=== PATIENT | male | born 1945 | race Caucasian/White ===

== ENCOUNTER 2022-04-26 18:05 | Emergency (ER) | payer MEDICARE, OTHER, SELFPAY ==
[2022-04-26 18:09] VITALS: BP 151/62; PULSE 62; RESP 16; TEMP 36.3; O2SAT 100
--- NOTE | 2022-04-26 18:55 | ED.FALL ---
HPI - Fall General Chief Complaint: Fall Stated Complaint: fall with bleeding injury to left arm Time Seen by Provider: 04/26/22 18:44 History of Present Illness HPI Narrative: 76-year-old male presents to the emergency room for evaluation of multiple skin tears to his left elbow. Patient states yesterday he suffered a mechanical fall from a standing position, scraped up his left elbow. Patient is on Plavix, and states he has not been unable to control the bleeding. Related Data Allergies Allergy/AdvReac Type Severity Reaction Status Date / Time No Known Allergies Allergy Verified 04/26/22 18:59 Review of Systems Review of Systems: CONSTITUTIONAL: Denies fever, chills, or sweats. EYES: Denies visual changes, redness, or discharge. ENT: Denies rhinorrhea, congestion, sore throat, or otalgia. CARDIOVASCULAR: Denies chest pain, palpitations, or edema. RESPIRATORY: Denies cough or dyspnea. GASTROINTESTINAL: Denies abdominal pain, nausea, vomiting, or diarrhea. GENITOURINARY: Denies dysuria or hematuria. SKIN: Reports multiple skin tears to left elbow MUSCULOSKELETAL: Denies back pain, joint pain, or myalgia. NEUROLOGIC: Denies headache, numbness, dizziness, or weakness. PSYCHIATRIC: Denies anxiety or depression. Exam Narrative: GENERAL: Well-appearing, well-nourished, no physical limitations, and in no acute distress. HEAD: Normocephalic, atraumatic. EYES: Conjunctivae normal, PERRLA and EOMI. CHEST: Clear to auscultation. No respiratory distress. No wheezes rales or rhonchi. No tenderness. HEART: Regular rate and rhythm. No murmur heard. Normal peripheral pulses. EXTREMITIES: Normal range of motion. No edema. No clubbing or cyanosis; no tenderness to the left elbow SKIN: Left elbow: 2 skin tears with venous bleed NEURO: No focal deficits. Alert and oriented x3. MAEW. CN's II-XI intact bilaterally, normal gait PSYCH: Cooperative. Normal mood and affect. Course Course Emergency Course: Surgicel applied to skin tear to left elbow. Hemostasis achieved. Vital Signs Vital signs: Vital Signs Temperature 36.3 C L 04/26/22 18:09 Pulse Rate 62 04/26/22 18:09 Respiratory Rate 16 04/26/22 18:09 Blood Pressure 151/62 H 04/26/22 18:09 Pulse Oximetry 100 04/26/22 18:09 Oxygen Delivery Room Air 04/26/22 18:09 Temperature 36.3 C L 04/26/22 18:09 Pulse Rate 62 04/26/22 18:09 Respiratory Rate 16 04/26/22 18:09 Blood Pressure 151/62 H 04/26/22 18:09 Pulse Oximetry 100 04/26/22 18:09 Oxygen Delivery Room Air 04/26/22 18:09 Discharge Plan Discharge Clinical Impression: Abrasion of elbow, left Patient Disposition: Home, Self-Care Condition: Stable Instructions: Antibiotic Form, Skin Avulsion (ED) Additional Instructions: Keep bandage on your wound for the next 2 days. Do not get wet. Once you remove the bandage, if the gauze is sticking to your elbow, just soak it in warm water. Follow-up/Referrals: Dimitrios,DO Sukhjinder [Primary Care Provider] - Time of Disposition: 19:23
[2022-04-26] MEDS: Please add drug allergy info to patient profile. 1 EACH XX (19:22)
[2022-04-26] MEDS: CELLULOSE OXIDIZED 2 x 3 INCH 1 PKT XX (19:22)
== END 2022-04-26 19:31 | disposition home or self-care (01) ==
PROVIDERS: Emergency Provider Nurse Practitioner Family; PCP Family Medicine
DX: S51.012A Laceration without foreign body of left elbow, initial encounter (principal); Z79.02 Long term (current) use of antithrombotics/antiplatelets; W19.XXXA Unspecified fall, initial encounter
CPT/HCPCS: 99283

== ENCOUNTER 2024-12-04 19:08 | Emergency (ER) | payer MEDICARE, OTHER, SELFPAY ==
--- NOTE | ~2024-12-04 | XR_ITS ---
Portable chest x-ray Comparison: None Clinical History: Cough Findings: Lungs are clear, without focal consolidation or pleural effusion. Cardiomediastinal silho uette is unremarkable. Bones and soft tissues are unremarkable. Impression: Clear lungs. Reviewed, dictated and finalized at location M. ECT MANAGEMENT ANALYST Impression: Clear lungs.
--- OUTSIDE RECORDS SUMMARY | 2024-12-04 19:11 | XMS_ITS | Clinical Summary ---
Author Organization [facility] Address [address] [place] [address] Care Team Providers Care Service Station Operator Name Role Phone Rogelio Huerta DO Primary Care Provider Allergies Active Allergy Reactions Criticality Noted Date Comments Doxycycline Dizziness Low 03/11/2023 Medications atorvastatin 40 MG tablet Take 1 tablet (40 mg total) by mouth daily. Active clopidogrel 75 MG tablet Take 1 tablet (75 mg total) by mouth daily. Active losartan 25 MG tablet Take 1 tablet (25 mg total) by mouth daily. Active metoprolol succinate ER 25 MG 24 hr tablet Take 1 tablet (25 mg total) by mouth daily. Active triamcinolone (KENALOG) 0.1 % lotion APPLY TO THE AFFECTED AREA ON SCALP DAILY UNTIL CLEAR 10/02/20 22 Active diclofenac sodium (VOLTAREN) 1 % gelIndications:Ost eoarthritis of both knees, unspecified osteoarthritis type,Trochanteric bursitis of both hips Apply 4 g topically 4 (four) times daily. 150 g 11/12/19 23 Active vitamin B-12 (CYANOCOBALAMIN) (CYANOCOBALAMIN) 1000 mcg tablet Take 1 tablet (1,000 mcg total) by mouth daily. Active ketoconazole (NIZORAL) 2 % shampooIndications :Dermatitis Apply topically 2 (two) times a week. 120 mL 01/02/20 23 Active amoxicillin-clavul anate (AUGMENTIN) 875-125 MG tablet amoxicillin 875 mg-potassium clavulanate 125 mg tablet TAKE 1 TABLET BY MOUTH EVERY 12 HOURS FOR 5 DAYS Active doxycycline hyclate (VIBRA-TABS) 100 MG tablet Take 1 tablet (100 mg total) by mouth 2 (two) times daily. 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 The only thing proven to slow the progression of osteoarthritis as weight loss. Every 1 lb lost, relieves 4-6 lb of stress across the knee. Continue weight loss through diet and exercise. Consider low carbohydrate diet. Greater trochanteric bursitis, left 06/05/2020 Overview (07/22/2021): Last Assessment & Plan: Physician directed exercises given. Voltaren gel. Steroid injection today. Follow-up in 4 weeks. Primary osteoarthritis of left hip 06/05/2020 Overview (07/22/2021): Last Assessment & Plan: We discussed the risks, benefits and alternatives. If the steroid injection to the greater trochanteric bursa does not give him the relief that he is looking for we could consider steroid injection into the hip joint itself. If that gives him the relief he is looking for a may need to consider total hip arthroplasty in the future. X-rays show moderate osteoarthritic changes. Coronary artery disease invo lving [place] coronary artery of [place] heart without angina pectoris 01/28/2019 Overview (07/22/2021): Last Assessment & Plan: Therefore need to avoid oral nonsteroidal anti-inflammatories Pure hypercholesterolemia 01/28/2019 Pain in shoulder 06/05/2016 Proteinuria 05/30/2016 Essential hypertension 10/29/2015 Gastroesophageal reflux disease 04/27/2015 Osteoarthritis of shoulder region 03/21/2014 Osteoarthritis of knee 03/20/2014 Resolved Problems Problem Noted Date Diagnosed Date Resolved Date Coronavirus infection 08/31/20202022 Overweight 06/29/2020 10/25/2021 Localized adiposity 08/25/2012 10/25/19 22 Immunizations Name Administration Dates Next Due Fluzone 6 Months+ Quad (0.5 mL Prefilled Syringe) 07/22/2021 Fluzone High Dose - >Age 65 (Prefilled Syringe) 07/28/2022 Influenza (Generic) 09/20/2014, 3,09/27/2012,2010 Influenza Adult (Generic) 08/08/2020,,08/13/2018,2016,09/12/2016,08/03/2015 MODERNA COVID-19 (12+) MRNA, LNP-S, PF, 100 MCG/ 0.5 ML DOSE 01/07/2021,11/29/2020 MODERNA COVID-19 (ENCHILADA [employer] YANNA ANTONIO), MRNA, LNP-S, PF, 50 MCG/ 0.25 ML DOSE 03/11/2022 Pneumococcal (Pneumovax 23) 10/19/2010 Pneumococcal (Prevnar 13) 06/04/2015 Shingrix 02/17/2019,12/09/2018 Td (TDVAX) 11/28/2003 Td (Tenivac) preservative free 11/28/2003 Tdap (Generic) 04/27/2015 Zoster (Zostavax) 19430 Unt/0.65Ml 11/01/2011 Family History Medical History Relation Comments Arthritis Brother 1 Heart Disease Brother 1 Hypertension Brother 1 Hypertension Brother 2 Heart Disease Brother 3 Hypertension Brother 3 Hypertension Sister 1 Alzheimers Sister 2 Relation Status Comments Brother 1 Brother 2 Brother 3 Sister 1 Sister 2 Social History Tobacco Use Types Packs/Day Years Used Date Smoking Tobacco: Former Cigarettes 1.5 32 1 965 - 10/19/1989 Smokeless Tobacco: Never Tobacco Cessation:Counseling Given: No Comments:The provider can provide you with more information about quitting. 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 Sexual Orientation Choose not to disclose 2021 4:58 AM CDT Last Filed Vital Signs Vital Sign Reading Time Taken Comments Blood Pressure 126/64 03/17/2023 9:39 AM CDT Pulse 62 03/17/2023 9:39 AM CDT Temperature 36.3 C (97.3 F) 03/17/2023 9:39 AM CDT Respiratory Rate 14 11/12/2022 1:36 PM ORTHOTIST/PROSTHETIST Oxygen Saturation 99% 03/17/2023 9:39 AM CDT Inhaled Oxygen Concentration - - Weight 76.2 kg (168 lb) 03/17/2023 9:39 AM CDT Height 172.7 cm (5' 8 ) 03/17/2023 9:39 AM CDT Body Mass Index 25.54 03/17/2023 9:39 AM CDT Plan of Treatment Health Maintenance Due Date Last Done Comments ASCVD LDL 1945 ASCVD Statin 1945 Hepatitis C 1963 Annual Medicare Wellness Visit 2010 RSV Immunization or 60+ Years (1 - 1-dose 75+ series) 2020 PHQ-2 (Physician [place]) 03/17/2024 03/17/2023 COVID-19 Vaccine ( season) 2024 10/23/2022, 03/11/2022, 08/28/2021, Additional history exists Influenza Adult (#1) 2024 07/28/2022, 07/22/2021, 08/08/2020, Additional history exists PHQ-2 (Physician [place]) 10/19/2024 03/17/2023 DTaP, Tdap and Td Vaccines (2 - Td or Tdap) 04/27/2025 04/27/2015, 11/28/2003, 11/28/2003 Pneumococcal Vaccine: 65+ Years Completed 06/04/2015, 10/19/2010 Zoster Vaccines Completed 02/17/2019, 11/20, 11/01/2011 Colorectal Cancer Screening Colonoscopy (10 Years) Discontinued 04/11/2020, 08/25/2016, 08/25/2016 Meningococcal B Vaccine Aged Out No l onger eligible based on patient's age to complete this topic Meningococcal Vaccine Aged Out No jacqueline sara eligible based on patient's age to complete this topic RSV Immunizations Under 20 Months Aged Out No longer eligible based on patient's age to complete this topic Procedures Procedure Name Priority Date/Time Associated Diagnosis Comments COLONOSCOPY GENERIC (SCAN ORDER) 04/11/2020 from Last 3 Months or Most Recently Relevant to Health Maintenance Results * COLONOSCOPY GENERIC (04/11/2020) 04/11/2020 Narrative 04/11/2020 Ordered by an unspecified provider. us Documents Scanned SCANNING Final Result from Last 3 Months or Most Recently Relevant to Health Maintenance Insurance MEDICARE [facility] [employer] Care Teams Service Station Operator Relationship Specialty Start Date End Date Rogelio Huerta DO [address] [place] [address] PCP - General FAMILY PRACTICE 10/21/22
--- OUTSIDE RECORDS SUMMARY | 2024-12-04 19:11 | XMS_ITS | Encounter Summary ---
Author Organization [facility] Facility Care Team Providers Care Independent Contractor Name Role Phone Magaly Desai NP Primary Care Provider + [phone] Nunu Yo MD Primary Care Provider [phone] Magaly Desai [employer] Primary Care Provider + [phone] Sukhjinder Plunkett DO Primary Care Provider + [phone] Rogelio Huerta DO Unavailable [phone] Hector Marsh MD Primary Care Provider [phone] Tao Carver MD Primary Care Provider + Jarod Miller MD Unavailable [phone] Pernell Jalloh MD Primary Care Provider [phone] Encounter Details Date Type Department Care Team (Latest Contact Info) Description 08/05/2016 Orders Only [facility] Provider, MD Travis [address] [place] [id number] Social History Tobacco Use Types Packs/Day Years Used Date Smoking Tobacco: Former Sex and Gender Information Value Date Recorded Sex Assigned at Not on file 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 us Historical Provider Final Res ult documented in this encounter Visit Diagnoses Not on filedocumented in this encounter Care Teams Independent Contractor Relationship Specialty Start Date End Date Magaly Desai, LATRICE PCP - General Nurse Practitioner 01/08/19 01/12/19 Nunu Yo MD [address] [address] PCP - General 01/13/19 07/01/20 Magaly Desai NP [address] [address] PCP - General 07/02/20 05/11/22 Sukhjinder Plunkett DO [address] [address] PCP - General Family Medicine 05/12/22 01/26/23 eHctor Marsh MD [address] [place] [address] PCP - General Orthopedic Surgery 01/27/23 08/13/23 Tao Carver MD [address] [address] PCP - General Internal Medicine 08/14/23 11/22/24 Pernell Jalloh MD [address] [place] [address] PCP - General Internal Medicine 11/23/24 Rogelio Huerta DO [address] [place] [address] Family Medicine 01/09/23 Jarod Miller MD [address] [address] Referring Physician Cardiovascular Disease 01/05/2411/22/24 documented as of this encounter
--- OUTSIDE RECORDS SUMMARY | 2024-12-04 19:11 | XMS_ITS | Referral Summary ---
Author Organization [facility] Address [address] [place] [address] Care Team Providers Care Children'S Ministries Director Name Role Phone Rogelio Huerta DO Unavailable Pernell Jalloh MD Primary Care Provider [phone] Encounters Date Type Department Care Team Description 11/28/2024 4:28 PM ELECTRICIANS TOP HELPER - 11/28/2024 11:59 PM ELECTRICIANS TOP HELPER Hospital Encounter [address] [address] Abnormal results of kidney function studies Discharge Disposition: Discharge to home or self care 11/24/2024 3:15 PM ELECTRICIANS TOP HELPER Office Visit [facility] [address] [place] [address] 6th [address] [place] [address] Shayla Craven NP Alzheimer's disease (HCC) (Primary Dx) from Last 3 Months Allergies Active Allergy Reactions Criticality Noted Date Comments Cyclobenzaprine Other (See comments) Low 06/23/2023 unknown Doxycycline Dizziness,Mental status changes Low Medications cyanocobalamin (Vitamin B-12) 1,000 mcg tablet Take 1 tablet (1,000 mcg total) by mouth daily Active ketoconazole (NIZORAL) 2 % shampoo Apply 1 Application topically once a week 3 Active atorvastatin (LIPITOR) 40 mg tablet TAKE 1 TABLET(40 MG) BY MOUTH DAILY 90 tablet 3 3 Active losartan (COZAAR) 25 mg tablet TAKE 1 TABLET BY MOUTH TWICE DAILY 180 tablet 3 3 Active donepeziL (ARICEPT) 10 mg tabletIndicatio ns:Mild to Moderate Alzheimer's Type Dementia Take 1 tablet (10 mg total) by mouth nightly Take this medication with food or within 30 minutes after a meal 30 tablet 6 5 05/23/20 25 Active Active Problems Problem Noted Date Diagnosed Date Alzheimer's disease 03/10/2024 Overview (11/24/2024): onset 2020 - Mini Mental State Exam 21 - Clinical dementia ratin.5, sum of box scores 4 - genotype e3/e3 - cerebral spinal fluid c/w AD - donepezil/Aricept 10 mg daily Assessment & Plan (11/24/2024 4:37 PM ELECTRICIANS TOP HELPER): onset 2020 - Mini Mental State Exam 21 - Clinical dementia ratin.5, sum of box scores 4 - genotype e3/e3 - cerebral spinal fluid c/w AD PLAN: Continue donepezil/Aricept 10 mg PCP or urgent care to r/o Urinary Tract Infection (acute confusion, frequency, decreased urine stream) Orthopedic aftercare 02/02/2024 Status post total left knee replacement using ce ment 02/02/2024 Arthritis of left knee 01/18/2024 Primary osteoarthritis of left knee 11/30/2023 Primary osteoarthritis of both shoulders 023 Left knee pain 09/04/2023 Primary localized osteoarthritis of knees, bilat eral 09/04/2023 Greater trochanteric bursitis, left 06/05/2020 Assessment & Plan (06/05/2020 8:49 PM CDT): Physician directed exercises given. Voltaren gel. Steroid injection today. Follow-up in 4 weeks. Primary osteoarthritis of left hip 06/05/2020 Assessment & Plan (06/05/2020 8:50 PM CDT): We discussed the risks, benefits and alternatives. If the steroid injection to the greater trochanteric bursa does not give him the relief that he is looking for we could consider steroid injection into the hip joint itself. If that gives him the relief he is looking for a may need to consider total hip arthroplasty in the future. X-rays show moderate osteoarthritic changes. BMI 27.0-27.9,adult 06/05/2020 Assessment & Plan (06/05/2020 8:50 PM CDT): We discussed the adverse effects of extra weight on osteoarthritis. The only thing proven to slow the progression of osteoarthritis as weight loss. Every 1 lb lost, relieves 4-6 lb of stress across the knee. Continue weight loss through diet and exercise. Consider low carbohydrate diet. Coronary artery disease invo lving havas[place]ai coronary artery of havas[place] heart without angina pectoris 01/28/2019 Assessment & Plan (06/05/2020 8:48 PM CDT): Therefore need to avoid oral nonsteroidal anti-inflammatories Pure hypercholesterolemia 01/28/2019 Essential hypertension 01/28/2019 Pain in shoulder 06/05/2016 Social History Tobacco Use Types Packs/Day Years Used Date Smoking Tobacco: Former Cigarettes Q uit: 1982 Smokeless Tobacco: Never Tobacco Cessation:Counseling Given: Not Answered Alcohol Use Standard Drinks/Week Comments Yes 0 (1 standard drink = 0.6 oz pur e alcohol) [facility] Answer Date Recorded In the past 12 months has [employer], gas, oil, or water [employer] threatened to shut off services in your home? No 01/19/2024 Social Connection and Isolat ion Panel [NHANES] Answer Date Recorded In a typical week, how many times do you talk on the phone with family, friends, or neighbors? More than three times a week 01/19/2024 How often do you get togethe r with friends or relatives? More than three times a week 01/19/2024 How often do you attend chur ch or pentecostalism services? Never 01/19/2024 Do you belong to any clubs o r organizations such as latter-day groups, unions, fraternal or athletic groups, or school groups? No 01/19/2024 How often do you attend meet ings of the clubs or organizations you belong to? Never 01/19/2024 Are you , , di vorced, , never , or living with a partner? 01/19/2024 AUDIT-C Answer Date Recorded Q1: How often do you have a drink containing alc ohol? Never 01/18/2024 Q2: How many drinks containi ng alcohol do you have on a typical day when you are drinking? 1 or 2 01/18/2024 Q3: How often do you have six or more drinks on one occasion? Never 01/18/2024 Overall Financial Resource Strain (CARDIA) Answe r Date Recorded How hard is it for you to pa y for the very basics like food, housing, medical care, and heating? Not hard at all 01/19/2024 Hunger Vital Sign Answer Date Recorded Within the past 12 months, y ou worried that your food would run out before you got the money to buy more. Never true 01/19/20 24 Within the past 12 months, t he food you bought just didn't last and you didn't have money to get more. Never true 01/19/2024 PRAPARE - Transportation Answer Date Re corded In the past 12 months, has l ack of transportation kept you from medical appointments or from getting medications? No 11/2023 In the past 12 months, has l ack of transportation kept you from meetings, work, or from getting things needed for daily living? No 01/19/2024 Housing Stability Vital Sign Answer Nacho e Recorded In the last 12 months, was t here a time when you were not able to pay the mortgage or rent on time? No 01/19/2024 In the last 12 months, how many places have you lived? 1 01/19/2024 In the last 12 months, was t here a time when you did not have a steady place to sleep or slept in a intermediate (including now)? No 01/19/2024 Personal Safety Answer Date Recorded Have you ever been in or are you currently in a harmful physical or emotional relationship or is someone making you feel afraid or unsafe? Denies 01/18/2024 Sex and Gender Information Value Date Recorded Sex Assigned at Not on file Legal Sex Male 8:15 AM ELECTRICIANS TOP HELPER Gender Identity Male 05/31/2024 10:17 AM CDT Sexual Orientation Not on file Occupation Industry Job Start Date Job End Date [employer] Not on file Not on file Not o n file Last Filed Vital Signs Vital Sign Reading Time Taken Comments Blood Pressure 163/63 11/24/2024 3:15 PM ELECTRICIANS TOP HELPER Pulse 66 11/24/2024 3:15 PM ELECTRICIANS TOP HELPER Temperature 36.6 C (97.9 F) 11/24/2024 3:15 PM ELECTRICIANS TOP HELPER Respiratory Rate 18 01/19/2024 11:00 AM CDT Oxygen Saturation 98% 11/24/2024 3:15 PM ELECTRICIANS TOP HELPER Inhaled Oxygen Concentration - - Weight 72.3 kg (159 lb 8 oz) 11/24/2024 3:15 PM ELECTRICIANS TOP HELPER Height 172.7 cm (5' 8 ) 11/24/2024 3:15 PM ELECTRICIANS TOP HELPER Body Mass Index 24.25 11/24/2024 3:15 PM ELECTRICIANS TOP HELPER Plan of Treatment Not on file Medical Devices Implanted Type Area Line Crewman Device Identifier Shelf Expiration Date Model / Serial / Lot Cardiac Stent Stent Heart [employer] Simplex P Radiopaque Full Dose Cement Bone Sterile 6191-1-010 - [id number] Implanted:Qty: 2 on 01/18/2024 by Sathish Hager MD at [facility] Left: Knee [employer] 02/15/2026 6191-1-010 / / [id number] [employer] Persona Cruciate Retain Cemented Knee Left 8 Standard Component [id number] - [id number] Implanted:Qty: 1 on 01/18/2024 by Sathish Hager MD at [facility] Left: Knee [employer] [id number] 04/26/2033 [id number] / / [id number] [employer] Baseplate Tibial Knee Cemented Left Fixed Stemmed Persona Size E [employer] [id number] - [id number] Implanted:Qty: 1 on 01/18/2024 by Sathish Hager MD at [facility] Left: Knee [employer] [id number] 10/30/2033 [id number] / / [id number] [employer] Persona 11mm Knee Left 8-11 E-F Insert Articular Vivacit-E [id number] - [id number] Implanted:Qty: 1 on 01/18/2024 by Sathish Hager MD at [facility] Left: Knee [employer] [id number] 09/16/2028 [id number] / / [id number] Procedures Procedure Name Priority Date/Time Associated Diagnosis Comments US KIDNEY COMPLETE Schedule Routine, Read Routine (OP Routine) 11/28/2024 5:05 PM ELECTRICIANS TOP HELPER Abnormal results of kidney function studies from Last 3 Months Results * US Kidney Complete (11/28/2024 5:05 PM ELECTRICIANS TOP HELPER) Anatomical Region Laterality Modality Kidney N/A Ultrasound 11/30/2024 2:48 PM ELECTRICIANS TOP HELPER Narrative 11/30/2024 2:51 PM ELECTRICIANS TOP HELPER EXAM DESCRIPTION: US KIDNEY COMPLETE REASON FOR STUDY: Acute renal insufficiency, abnormal renal function tests for 2 weeks. Hypertension. TECHNIQUE: Ultrasound of the kidneys and urinary bladder was performed with grayscale imaging. COMPARISON: None FINDINGS: RIGHT KIDNEY: The right kidney measures 11 cm in length. There is moderate right hydronephrosis and proximal right hydroureter. There is normal cortical thickness and echogenicity. LEFT KIDNEY: The left kidney measures 12 cm in length. There is moderate left hydronephrosis and proximal left hydroureter. There is normal cortical thickness and echogenicity. URINARY BLADDER: Trabeculated urinary bladder. Only the left ureteral jet was visualized. OTHER: No other additional findings. IMPRESSION: Moderate bilateral hydronephrosis and proximal hydroureter. Trabeculated urinary bladder. Only the left ureteral jet was visualized. THIS IS AN ELECTRONICALLY VERIFIED FINAL REPORT 11/30/2024 2:51 PM - Electronically signed by Arvin Fernando M.D. KT T: Report ID: [id number] Reading Location: [id number] Procedure Note Arvin Fernando MD - 11/30/2024 EXAM DESCRIPTION: US KIDNEY COMPLETE REASON FOR STUDY: Acute renal insufficiency, abnormal renal function testsfor 2 weeks. Hypertension. TECHNIQUE: Ultrasound of the kidneys and urinary bladder was performedwith grayscale imaging. COMPARISON: None FINDINGS: RIGHT KIDNEY: The right kidney measures 11 cm in length. Thereis moderate right hydronephrosis and proximal right hydroureter. There isnormal cortical thickness and echogenicity. LEFT KIDNEY: The left kidney measures 12 cm in length. There is moderate left hydronephrosis and proximal left hydroureter. There is normalcortical thickness and echogenicity. URINARY BLADDER: Trabeculated urinary bladder. Only the left ureteraljet was visualized. OTHER: No other additional findings. IMPRESSION: Moderate bilateral hydronephrosis and proximal hydroureter. Trabeculated urinary bladder. Only the left ureteral jet wasvisualized. THIS IS AN ELECTRONICALLY VERIFIED FINAL REPORT 11/30/2024 2:51 PM - Electronically signed by Arvin Fernando M.D. KT T: Report ID: [id number] Reading Location: [place] [address] [facility] PROCEDURES Final Resu lt from Last 3 Months Insurance MEDICARE [facility] Address: [address] [address] [place] [address] [facility] Sam Carcamo, ZOILA [address] [facility] [place] [address] Advance Directives For more information, please contact: [phone] Documents on File Type Date Recorded Patient Package Pick Up Expl anation ADVANCE DIRECTIVE 01/20/2024 12:44 PM Power of Neurosurgery Physician-Medical * Full Code (Latest Code Status on File) Date Activated Date Inactivated Comments 01/18/2024 7:22 PM 01/19/2024 7:50 PM Care Teams Children'S Ministries Director Relationship Specialty Start Date End Date Pernell Jalloh MD [address] [place] [address] PCP - General Internal Medicine 11/23/24 Rogelio Huerta DO [address] [place] [address] Family Medicine 01/09/23
--- OUTSIDE RECORDS SUMMARY | 2024-12-04 19:11 | XMS_ITS | Encounter Summary ---
Author Organization [facility] Care Team Providers Care Welt Trimming Machine Operator Name Role Phone Magaly Desai NP Primary Care Provider + [phone] Nunu Yo MD Primary Care Provider [phone] Magaly Desai ASSOCIATE PROFESSOR OF FORESTRY Primary Care Provider + [phone] Sukhjinder Plunkett DO Primary Care Provider + [phone] Rogelio Huerta DO Unavailable [phone] Hector Marsh MD Primary Care Provider [phone] Tao Carver MD Primary Care Provider + Jarod Miller MD Unavailable [phone] Pernell Jalloh MD Primary Care Provider [phone] Encounter Details Date Type Department Care Team (Latest Contact Info) Description 12/09/2018 Orders Only [facility] Provider, MD Travis [address] [place] [address] Social History Tobacco Use Types Packs/Day Years Used Date Smoking Tobacco: Former Sex and Gender Information Value Date Recorded Sex Assigned at Not on file Legal Sex Male 8:15 AM ASSEMBLING MACHINE OPERATOR Gender Identity Male 05/31/2024 10:17 AM CDT Sexual Orientation Not on file documented as of this encounter Plan of Treatment Not on file documented as of this encounter Procedures Procedure Name Priority Date/Time Associated Diagnosis Comments CARDIOLOGY REPORT 12/16/2018 12: 00 AM ASSEMBLING MACHINE OPERATOR documented in this encounter Results * CARDIOLOGY REPORT (12/16/2018 12:00 AM ASSEMBLING MACHINE OPERATOR) Anatomical Region Laterality Modality Other Narrative 12/16/2018 12:00 AM ASSEMBLING MACHINE OPERATOR Ordered by an unspecified provider. us Historical Provider [facility] JERAD VELAZQUEZ Final Result documented in this encounter Visit Diagnoses Not on filedocumented in this encounter Care Teams Welt Trimming Machine Operator Relationship Specialty Start Date End Date Magaly Desai NP PCP - General Nurse Practitioner 01/08/19 01/12/19 Nunu Yo MD [address] [address] PCP - General 01/13/19 07/01/20 Magaly Desai NP [address] [address] PCP - General 07/02/20 05/11/22 Sukhjinder Plunkett DO [address] [address] PCP - General Family Medicine 05/12/22 01/26/23 Hector Marsh MD [address] [place] [address] PCP - General Orthopedic Surgery 01/27/23 08/13/23 Tao Carver MD [address] [address] PCP - General Internal Medicine 08/14/23 11/22/24 Pernell Jalloh MD [address] [place] [address] PCP - General Internal Medicine 11/23/24 Rogelio Huerta DO [address] [place] [address] Family Medicine 01/09/23 Jarod Miller MD [address] [address] Referring Physician Cardiovascular Disease 01/05/2411/22/24 documented as of this encounter
--- OUTSIDE RECORDS SUMMARY | 2024-12-04 19:11 | XMS_ITS | Clinical Summary ---
Author Organization [facility] Address [address] [place] [address] Care Team Providers Care Loader Semiconductor Dies Name Role Phone BradleyRogelio DO Unavailable [phone] Pernell Jalloh MD Primary Care Provider + [phone] Allergies Active Allergy Reactions Criticality Noted Date [...] daily Assessment & Plan (11/24/2024 4:37 PM SUBSTATION OPERATOR CHIEF): onset 2020 - Mini Mental State Exam [...] carbohydrate diet. Coronary artery disease invo lving [place] coronary artery of [place] heart without angina pectoris 01/28/2019 Assessment & Plan (06/05/2020 8:48 PM CDT): Therefore need to avoid oral nonsteroidal anti-inflammatories Pure hypercholesterolemia 01/28/2019 Essential hypertension 01/28/2019 Pain in shoulder 06/05/2016 Encounters Date Type Department Care Team Description 11/28/2024 4:28 PM SUBSTATION OPERATOR CHIEF - 11/28/2024 11:59 PM SUBSTATION OPERATOR CHIEF Hospital Encounter [address] [address] Abnormal results of kidney function studies Discharge Disposition: Discharge to home or self care 11/24/2024 3:15 PM SUBSTATION OPERATOR CHIEF Office Visit [address] 6th [address] [place] [address] Herber, Shayla Anand NP Alzheimer's disease (HCC) (Primary Dx) from Last 3 Months Surgical History Surgery Date Site/Laterality Comments CARDIAC CATHETERIZATION 01/13/2019 Mild coronary artery disease involving proximal left circumflex artery 20% stenosis. 2. Right coronary artery 30% stenosis. 3. The stent in left circumflex artery patent. 4. The stent in left anterior descending artery is patent. CORONARY ANGIOPLASTY 2011 2013 Medical History Medical History Date Comments Hyperlipidemia Hypertension Coronary artery disease OA (osteoarthritis) Forgetfulness being worked up for dementia per Incontinence of urine wears depe nds at night Perceptive hearing loss, both sides wears hearing aides. Family History Medical History Relation Name Comments Memory loss Brother 1 Memory loss Brother 2 Alcohol abuse Father Bleeding Disorder Father Blood Clot Father Arthritis Mother Memory loss Sister 1 Memory loss Sister 2 Relation Name Status Comments Brother 1 Brother 2 Father Mother Sister 1 Alive Sister 2 Social History Tobacco Use Types Packs/Day Years Used Date Smoking Tobacco: Former Cigarettes Q uit: 1982 Smokeless Tobacco: Never Tobacco Cessation:Counseling Given: Not Answered Alcohol Use Standard Drinks/Week Comments Yes 0 (1 standard drink = 0.6 oz pur e alcohol) [facility] Utilities Answer Date Recorded In the past 12 months has [employer], oil, or water [employer] threatened to shut off services in your [...] often do you attend chur ch or spiritism services? Never 01/19/2024 Do you belong to any clubs o r organizations such as druze groups, unions, fraternal or athletic groups, or [...] place to sleep or slept in a mcfp (including now)? No 01/19/2024 Personal Safety Answer Date Recorded Have you ever been in or are you currently in a harmful physical or emotional relationship or is someone making you feel afraid or unsafe? Denies 01/18/2024 Sex and Gender Information Value Date Recorded Sex Assigned at Not on file Legal Sex Male 8:15 AM SUBSTATION OPERATOR CHIEF Gender Identity Male 05/31/2024 10:17 AM CDT Sexual Orientation Not on file Occupation Industry Job Start Date Job End Date [employer] Not on file Not on file Not o n file Obstetrics History Last Filed Vital Signs Vital Sign Reading Time Taken Comments Blood Pressure 163/63 11/24/2024 3:15 PM SUBSTATION OPERATOR CHIEF Pulse 66 11/24/2024 3:15 PM SUBSTATION OPERATOR CHIEF Temperature 36.6 C (97.9 F) 11/24/2024 3:15 PM SUBSTATION OPERATOR CHIEF Respiratory Rate 18 01/19/2024 11:00 AM CDT Oxygen Saturation 98% 11/24/2024 3:15 PM SUBSTATION OPERATOR CHIEF Inhaled Oxygen Concentration - - Weight 72.3 kg (159 lb 8 oz) 11/24/2024 3:15 PM SUBSTATION OPERATOR CHIEF Height 172.7 cm (5' 8 ) 11/24/2024 3:15 PM SUBSTATION OPERATOR CHIEF Body Mass Index 24.25 11/24/2024 3:15 PM SUBSTATION OPERATOR CHIEF Plan of Treatment Health Maintenance Due Date Last Done Comments Depression Screening 1945 Hepatitis C Screening 1945 Hepatitis B Screening 1963 Abdominal Aortic Aneurysm (A AA) Screen 2010 Well Visit 65+ 2010 Covid-19 Vaccine (2023-2 5 season) 2024 03/11/2022, 08/28/2021, 01/07/2021, Additional history exists Fall Risk Assessment 01/18/2025 01/19/2024 DTaP/Tdap/Td Vaccine (2 - Td or Tdap) 04/27/2025 04/27/2015, 11/28/2003 Pneumococcal vaccine 65+ Completed 06/04/2015, 10/2010 Zoster Vaccine Completed 02/17/2019, 11/20, 11/01/2011 Influenza Vaccine Completed 07/13/2024, , 08/08/2020, Additional history exists Medical Devices Implanted Type Area Primary Clinician Device Identifier Shelf Expiration Date Model / Serial / Lot Cardiac Stent Stent Heart [employer] Simplex P Radiopaque Full Dose Cement Bone Sterile 6191-1-010 - [id number] Implanted:Qty: 2 on 01/18/2024 by Sathish Hager MD at [facility] Left: Knee [employer] 02/15/2026 6191-1-010 / / [id number] [employer] Persona Cruciate Retain Cemented Knee Left 8 Standard Component [id number] - [id number] Implanted:Qty: 1 on 01/18/2024 by Sathish Hager MD at [facility] Left: Knee [employer] [id number] 04/26/2033 [id number] / / [id number] [employer] Baseplate Tibial Knee Cemented Left Fixed Stemmed Persona Size E [employer] [id number] - [id number] Implanted:Qty: 1 on 01/18/2024 by Sathish Hager MD at [facility] Left: Knee [employer] [id number] 10/30/2033 [id number] / / [id number] [employer] Persona 11mm Knee Left 8-11 E-F Insert Articular Vivacit-E [id number] - [id number] Implanted:Qty: 1 on 01/18/2024 by Sathish Hager MD at [facility] Left: Knee [employer] [id number] 09/16/2028 [id number] / / [id number] Procedures Procedure Name Priority Date/Time Associated Diagnosis Comments US KIDNEY COMPLETE Schedule Routine, Read Routine (OP Routine) 11/28/2024 5:05 PM SUBSTATION OPERATOR CHIEF Abnormal results of kidney function studies from Last 3 Months Results * US Kidney Complete (11/28/2024 5:05 PM SUBSTATION OPERATOR CHIEF) Anatomical Region Laterality Modality Kidney N/A Ultrasound 11/30/2024 2:48 PM SUBSTATION OPERATOR CHIEF Narrative 11/30/2024 2:51 PM SUBSTATION OPERATOR CHIEF EXAM DESCRIPTION: US KIDNEY COMPLETE REASON FOR [...] Arvin Fernando M.D. KT T: Report ID: [id number] Reading Location: [id number] Procedure Note Arvin Fernando MD - 11/30/2024 [...] Arvin Fernando M.D. KT T: Report ID: [id number] Reading Location: [id number] Pernell Jalloh MD [facility]ED[facility] Final Resu lt from Last [address] [facility]ICARE [facility] MEDICARE [facility] Advance Directives For more information, please contact: [phone] Documents on File Type Date Recorded Patient Corporate Responsibility Officer Expl anation ADVANCE DIRECTIVE 01/20/2024 12:44 PM Power of Hospital Admissions Officer-Medical * Full Code (Latest Code Status on File) Date Activated Date Inactivated Comments 01/18/2024 7:22 PM 01/19/2024 7:50 PM Care Teams Loader Semiconductor Dies Relationship Specialty Start Date End Date Pernell Jalloh MD [address] [place] [address] PCP - General Internal Medicine 11/23/24 Rogelio Huerta DO [address] [place] [address] Family Medicine 01/09/23
--- OUTSIDE RECORDS SUMMARY | 2024-12-04 19:11 | XMS_ITS | Encounter Summary ---
Author Organization [facility] Facility Care Team Providers Care Cert Occupational Therapy Asst Name Role Phone Magaly Desai NP Primary Care Provider + [phone] Nunu Yo MD Primary Care Provider [phone] Magaly Desai HYDROGEN P[employer] PLANT ENGINEER Primary Care Provider + [phone] Sukhjinder Plunkett DO Primary Care Provider + [phone] Rogelio Huerta DO Unavailable [phone] Hector Marsh MD Primary Care Provider [phone] Tao Carver MD Primary Care Provider + Jarod Miller MD Unavailable [phone] Pernell Jalloh MD Primary Care Provider [phone] Encounter Details Date Type Department Care Team (Latest Contact Info) Description 04/08/2016 Orders Only [facility] Provider, MD Travis [address] [place] [address] Social History Tobacco Use Types Packs/Day Years Used Date Smoking Tobacco: Never Assessed Sex and Gender Information Value Date Recorded Sex Assigned at Not on file 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 Historical Provider MD Final Res ult documented in this encounter Visit Diagnoses Not on filedocumented in this encounter Care Teams Cert Occupational Therapy Asst Relationship Specialty Start Date End Date Magaly Desai NP PCP - General Nurse Practitioner 01/08/19 01/12/19 Nunu Yo MD [address] [address] PCP - General 01/13/19 07/01/20 Magaly Desai NP [address] [address] PCP - General 07/02/20 05/11/22 Sukhjinder Plunkett DO [address] [address] PCP - General Family Medicine 05/12/22 01/26/23 Hector Marsh MD [address] [place] [address] PCP - General Orthopedic Surgery 01/27/23 08/13/23 Tao Carver MD [address] [address] PCP - General Internal Medicine 08/14/23 11/22/24 Pernell Jalloh MD [address] [place] [address] PCP - General Internal Medicine 11/23/24 Rogelio Huerta DO [address] [place] [address] Family Medicine 01/09/23 Jarod Miller MD [address] [address] Referring Physician Cardiovascular Disease 01/05/2411/22/24 documented as of this encounter
--- OUTSIDE RECORDS SUMMARY | 2024-12-04 19:11 | XMS_ITS | Encounter Summary ---
Author Organization [facility] Facility Care Team Providers Care Box Loader Name Role Phone Magaly Desai NP Primary Care Provider + [phone] Nunu Yo MD Primary Care Provider [phone] Magaly Desai SPRING FITTER Primary Care Provider + [phone] Sukhjinder Plunkett DO Primary Care Provider + [phone] Rogelio Huerta DO Unavailable [phone] Hector Marsh MD Primary Care Provider [phone] Tao Carver MD Primary Care Provider + Jarod Miller MD Unavailable [phone] Pernell Jalloh MD Primary Care Provider [phone] Encounter Details Date Type Department Care Team (Latest Contact Info) Description 03/21/2016 Orders Only [facility] Provider, MD Travis [address] [place] [address] Social History Tobacco Use Types Packs/Day Years Used Date Smoking Tobacco: Never Assessed Sex and Gender Information Value Date Recorded Sex Assigned at Not on file 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 Historical Provider MD Final Res ult documented in this encounter Visit Diagnoses Not on filedocumented in this encounter Care Teams Box Loader Relationship Specialty Start Date End Date Magaly Desai NP PCP - General Nurse Practitioner 01/08/19 01/12/19 Nunu Yo MD [address] [address] PCP - General 01/13/19 07/01/20 Magaly Desai NP [address] [address] PCP - General 07/02/20 05/11/22 Sukhjinder Plunkett DO [address] [address] PCP - General Family Medicine 05/12/22 01/26/23 Hector Marsh MD [address] [place] [address] PCP - General Orthopedic Surgery 01/27/23 08/13/23 Tao Carver MD [address] [address] PCP - General Internal Medicine 08/14/23 11/22/24 Pernell Jalloh MD [address] [place] [address] PCP - General Internal Medicine 11/23/24 Rogelio Huerta DO [address] [place] [address] Family Medicine 01/09/23 Jarod Miller MD [address] [address] Referring Physician Cardiovascular Disease 01/05/2411/22/24 documented as of this encounter
--- OUTSIDE RECORDS SUMMARY | 2024-12-04 19:11 | XMS_ITS | Data Portability ---
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 He has no symptoms of chest pain. He is unable to exercise as he used to because of his bilateral knee pain. He had a stress Myoview in October 2021 which was negative for myocardial ischemia. He has no acute ST-T wave changes on EKG. He has no symptoms of angina or angina equivalent symptoms. He has acceptable risk for cardiovascular events if he goes for knee surgery. I reminded him not to stop taking aspirin for his knee surgery as it would increase risk of myocardial infarction. Hypertension, well-controlled. Hyperlipidemia, I will check a fasting lipid profile tomorrow. I will see him again in 6 months check CMP and lipid profile before follow-up. molly Not available 12/15/2023 16:07:39 01/07/2024 01/07/2024 I spent greater than 20 minutes today reviewing the patient's medical record, obtaining history, performing an exam, ordering medications, tests, and/or procedures, documenting in the medical record, referring and/or communicating with other health care providers and reviewing and communicating test results. rayne Not available 01/07/2024 13:02:22 06/14/2024 06/14/2024 78-year-old gentleman who has coronary artery disease status post PTCA with a stent placement of left anterior descending artery doing well. He has no symptoms of chest pain. He is unable to exercise as he used to because of his bilateral knee pain. He had a stress Myoview in October 2021 which was negative for myocardial ischemia. He has no acute ST-T wave changes on EKG. He has no symptoms of angina or angina equivalent symptoms. He has acceptable risk for cardiovascular events if he goes for knee surgery. I reminded him not to stop taking aspirin for his knee surgery as it would increase risk of myocardial infarction. Hypertension, well-controlled. Hyperlipidemia, I will check a fasting lipid profile tomorrow. I will see him again in 6 months check CMP and lipid profile before follow-up. June 14, 2024: Coronary artery disease, stable no symptoms of angina continue with statin along with Plavix. Hypertension,pres sure is well-controlled 25 mg p.o. b.i.d.. Hyperlipidemia, LDL is at goal continue with atorvastatin 40 mg daily. I encouraged him to exercise regularly. I will see him again in 6 months check lipid profile, CMP and CBC before follow-up. [email or web address] Not available 06/14/2024 12:15:03 10/31/2024 10/31/2024 we will continue with current therapy Neutrogena T gel for the seborrheic dermatitis goals of therapy with regards to cardiovascular disease with the worked up between them and the x ray equipment mechanic there is no antiplatelet or statin as a result of shared decision between patient and x ray equipment mechanic. I would like to see him back in about 4 months [email or web address] Not available 10/31/2024 22:53:39 Plan of Treatment Reminders Order Date Submit Date Provider Last Modified By Organization Details Last Modified Time Details Appointments ANY 15 2024 10:30A M Jarod garcia MD Not available Not available Not available ANY 15 2024 11:00A M Lisa Jalloh MD Not available Not available Not available Lab CBC w/ auto diff 2023 02/17/2 025 molly [facility], [address], [place], [address], 06/14/2024 12:07:11 lipid panel, serum 2023 025 [employer] [facility], [address], [place], [address], 06/14/2024 12:07:11 CMP, serum or plasma 2023 [facility]25 [facility], [address], [place], [address], 06/14/2024 12:07:11 lipid panel, serum 2023 024 [employer] [facility], [address], [address], [place], [address], 12/17/2023 05:03:26 CMP, serum or plasma 2023 024 [employer] [facility], [address], [place], [address], 12/17/2023 05:03:26 lipid panel, serum 2023 024 [employer] [facility], [address], [place], [address], 06/08/2024 09:36:05 CMP, serum or plasma 2023 024 [employer] [facility], [address], [place], [address], 05/30/2024 15:15:29 Referral None record ed. Procedures None record ed. Surgeries None record ed. Imaging electr ocardi ogram 2023 024 [facility] In-[facility] Order, Internal Use Only DO Not Attach Compendium DO Not Attach Compendium, Do Not Delete/merge, [id number] 12/16/2023 11:35:27 Medication Orders None record ed. Patient TargetsNo targets recorded. Patient Instructions Encounter Date Encounter Id Patient Instructions Last Modified By Organization Details Last Modified Time 01/07/2024 [id number] Joseph - Thank yo u for your visit - Continue your current medications - I will complete your preoperative form and forward it to your surgeon - Return to clinic as scheduled, or as needed - Call with any concerns [email or web address] Not available 01/07/2024 13:02:04 04/11/2024 [id number] constipation: care instructions [email or web address] Not available 04/11/2024 16:59:52 Joseph, - Thank you for your visit - Continue your current medications - see handout regarding constipation - I recommended additive therapy: start with MiraLAX, after 3 days add Dulcolax (bisacodyl) if not improving, and after additional 3 days add Senokot (senna + docusate) - Goal is a daily bowel movement - sometimes with a backup, medications need to be continued up to a month to clear everything out - Use medications as directed - Call with any concerns [email or web address] Not available 04/11/2024 17:02:25 Reason for Referral None Reported. Results Created Date Observation Date Name Description Value Unit Range Abnormal Flag Note LastModifiedBy Organization Detail LastModifiedTime 12/16/19 24 12/17/2023 LIPID PANEL , STAND CHUY cholesterol, total 141 mg/dL <200 normal Not Available [facility] [address], [address], 12/17/2023 05:03:26 12/16/19 24 12/17/2023 LIPID PANEL , STAND CHUY HDL cholesterol 61 mg/dL > or = 40 normal Not Available [facility] [id number] [place], [place] [address], [address], 12/17/2023 05:03:26 12/16/19 24 12/17/2023 LIPID PANEL , STAND CHUY triglyceride s 45 mg/dL <150 normal Not Available [facility] [id number] [place], [place] [address], [address], 12/17/2023 05:03:26 12/16/19 24 12/17/2023 LIPID PANEL , STAND CHUY LDL-choleste rol 67 mg/dL _(shivam c) normal Refer ence range : <100 Abimael able range <100 mg/dL for prima ry preve ntion ; <70 mg/dL for patie nts with CHD or diabe tic patie nts with > or = 2 CHD risk facto rs. LDL-C is now calcu lated using the [facility] calcu terrencealla n, which is a valid ated novel metho d provi ding she r accur acy than the [employer] crystal equat ion in the estim ation of LDL-C . Kimberly pinto SS et al. WAYNE. 2013; 310(1 9): 2061- 2068 (http ://ed ucati on.Qu estRedbooth. com/f aq/FA Q164) Not Available [facility] [address] [address] [place], [address], 12/17/2023 05:03:26 12/16/19 24 12/17/2023 LIPID PANEL , STAND CHUY chol/HDLC ratio 2.3 (calc ) <5.0 normal Not Available [facility] [address] [address] [place], [address], 12/17/2023 05:03:26 12/16/19 24 12/17/2023 LIPID PANEL , STAND CHUY non HDL cholesterol 80 mg/dL _(shivam c) <130 normal For patie nts with diabe warren plus 1 major ASCVD risk facto r, treat ing to a non-H DL-C goal of <100 mg/dL (LDL- C of <70 mg/dL ) is consi alead a thersam talbot c optio n. Not Available [facility] [address] [address] [address], [place], [address], 12/17/2023 05:03:26 12/16/19 24 12/17/2023 COMPR EHENS SARY METAB OLIC PANEL glucose 88 mg/dL 65-99 normal Fasti ng refer ence inter ana Not Available [facility] [address] [address] [place], [address], 12/17/2023 05:03:26 12/16/19 24 12/17/2023 COMPR EHENS SARY METAB OLIC PANEL urea nitrogen (BUN) 20 mg/dL 7-25 normal Not Available [address], [address], 12/17/2023 05:03:26 12/16/19 24 12/17/2023 COMPR EHENS SARY METAB OLIC PANEL creatinine 1.16 mg/dL 0.70-1 .28 normal Not Available [address], [address], 12/17/2023 05:03:26 12/16/19 24 12/17/2023 COMPR EHENS SRAY METAB OLIC PANEL eGFR 64 mL/mi n/1.7 3m2 > or = 60 normal Not Available [address], [address], 12/17/2023 05:03:26 12/16/19 24 12/17/2023 COMPR EHENS SARY METAB OLIC PANEL BUN/creatini ne ratio SEE NOTE: (calc ) 6-22 Not Repor carmen: BUN and Creat inine are withi n refer ence range . Not Available [address], [address], 12/17/2023 05:03:26 12/16/19 24 12/17/2023 COMPR EHENS SARY METAB OLIC PANEL sodium 141 mmol/ L 135-14 6 normal Not Available [address], [address], 12/17/2023 05:03:26 12/16/19 24 12/17/2023 COMPR EHENS SARY METAB OLIC PANEL potassium 4.3 mmol/ L 3.5-5. 3 normal Not Available [address], [address], 12/17/2023 05:03:26 12/16/19 24 12/17/2023 COMPR EHENS SARY METAB OLIC PANEL chloride 105 mmol/ L 98-110 normal Not Available [address], [address], 12/17/2023 05:03:26 12/16/19 24 12/17/2023 COMPR EHENS SARY METAB OLIC PANEL carbon dioxide 30 mmol/ L 20-32 normal Not Available [address], [address], 12/17/2023 05:03:26 12/16/19 24 12/17/2023 COMPR EHENS SARY METAB OLIC PANEL calcium 9.1 mg/dL 8.6-10 .3 normal Not Available [address], [address], 12/17/2023 05:03:12/16/19 24 12/17/2023 COMPR EHENS SARY METAB OLIC PANEL protein, total 6.2 g/dL 6.1-8. 1 normal Not Available [address], [address], 12/17/2023 05:03:12/16/19 24 12/17/2023 COMPR EHENS SARY METAB OLIC PANEL albumin 4.1 g/dL 3.6-5. 1 normal Not Available [address], [address], 12/17/2023 05:03:12/16/19 24 12/17/2023 COMPR EHENS SARY METAB OLIC PANEL globulin 2.1 g/dL_ (calc ) 1.9-3. 7 normal Not Available [address], [address], 12/17/2023 05:03:26 12/16/19 24 12/17/2023 COMPR EHENS SARY METAB OLIC PANEL albumin/glob ulin ratio 2.0 (calc ) 1.0-2. 5 normal Not Available [address], [address], 12/17/2023 05:03:26 12/16/19 24 12/17/2023 COMPR EHENS SARY METAB OLIC PANEL bilirubin, total 0.7 mg/dL 0.2-1. 2 normal Not Available [address] [address] [place], [address], 12/17/2023 05:03:26 12/16/19 24 12/17/2023 COMPR EHENS SARY METAB OLIC PANEL alkaline phosphatase 51 U/L 35-144 normal Not Available [employer] [address] [address] [place], [address], 12/17/2023 05:03:26 12/16/19 24 12/17/2023 COMPR EHENS SARY METAB OLIC PANEL AST 22 U/L 10-35 normal Not Available [address], [address], 12/17/2023 05:03:26 12/16/19 24 12/17/2023 COMPR EHENS SARY METAB OLIC PANEL ALT 21 U/L 9-46 normal Not Available [address], [address], 12/17/2023 05:03:26 12/15/19 24 elect rocar diogr am No observ ation record ed. [facility] In-Office Order Internal Use Only DO Not Attach Compendium DO Not Attach Compendium, Do Not Delete/merge, [id number] 12/15/2023 15:19:07 01/11/20 24 01/11/2024 oscar can cardi olite stres s test (PROC ) No observ ation record ed. [email or web address] [facility] [address] [place] [address] [place], [address], 01/12/2024 09:30:30 01/11/20 24 01/11/2024 oscar can cardi olite stres s test (PROC ) No observ ation record ed. [facility] [address] [place] [address] [place], [address], 01/11/2024 14:53:31 11/30/19 25 11/28/2024 US, renal No observ ation record ed. [address] [place], [address], 12/01/2024 15:01:40 Result Notes None recorded. Problems Name Problem SNOMED Code Status Onset Date Resolution Date Notes Provider Name and Address Organization Details Recorded Time Hyperlip idemia 46463653 Active 2019 Gene Natarajan MD Attn: Matt yang,[address] [facility] [address] [address], [place], [address], [facility] - [facility] 3 21:26:19 Arthriti s of hip 71531061 Active 2019 Gene Natarajan MD Attn: Matt yang,[address] [place], [address], [facility] 3 21:26:19 Stented coronary artery 450344446 Active 2019 circ 2012, mid LAD 2013 Gene Natarajan MD Attn: Matt yang,[address] [place], [address], [place] [facility] 3 21:26:19 Coronavi sasha infectio n [id number] Completed 201908/23/2023 Gene Natarajan MD Attn: Matt yang,[address] [place], [address], [place] [facility] 3 21:26:28 Bilatera l shoulder joint pain 18699382391 536877 Active 2022 Gene Natarajan MD Attn: Matt yang,[address] [facility] [address], [place], [address], [place] [facility] 3 17:33:22 Bilatera l hip joint pain 27823869414 403023 Active 2022 Gene Natarajan MD Attn: Matt yang,[address] [facility], [place], [address], [place] [facility] 3 17:33:30 Pain of bilatera l knee joints 29669831979 4104 Active 2022 Gene Natarajan MD Attn: Magalisuzanne g,[address] [facility], [place], [address], [place] [facility] 3 17:33:38 Body mass index 25-29 - overweig ht 487760202 Active 2022 Gene Natarajan MD Attn: Magaliin g,[address] [facility], [place], [address], [place] [facility] 3 21:26:56 Localize d, primary osteoart hritis 072777669 Active 2013 Gene Natarajan MD Attn: Matt g,[address] [facility], [place], [address], [place] [facility] 3 21:27:56 Long-ter m drug therapy Active 2014 Gene Natarajan MD Attn: Matt g,[address] [facility], [place], [address], [place] [facility] 3 21:28:13 Gastro-e sophagea l reflux disease with esophagi tis 276994090 Active 2012 Gene Natarajan MD Attn: Matt g,[address] [facility] [address], [place], [address], [place] [facility] 3 21:32:55 Constipa tion 43957584 Active 2023 Gene Natarajan MD Attn: Accountin g,[address] [facility], [place], [address], [place] [facility] 4 16:57:24 Atherosc lerosis of coronary artery without angina pectoris 48957015445 4103 Active 2023 Martín Carmona MA null, [place] - [facility] 4 15:32:51 Dementia 31908534 Active 2024 Lisa Jalloh MD Attn: Matt yang,[address] [facility] [address], [place], [address], [place] [facility] 5 22:51:43 Mononeur itis of lower limb Completed 201111/13/2012 Gene Natarajan MD Attn: Magalisuzanne yang,[address] [facility], [place], [address], [place] [facility] 3 21:30:26 Gastro-e sophagea l reflux disease with esophagi tis 866448026 Completed 201206/17/2013 Gene Natarjaan MD Attn: Magalisuzanne yang,[address] [place] [address], [address], [place] [facility] 3 21:32:55 Localize d, primary osteoart hritis 106001740 Completed 201306/29/2020 Gene Natarajan MD Attn: Matt trey,[address] [place], [address], [place] [facility] 3 21:27:56 Osteoart hritis of knee 388661419 Active 2013 Gene Natarajan MD Attn: Matt trey,[address] [place], [address], [place] [facility] 3 21:24:36 Neck pain 41945196 Completed 201506/13/2016 Gene Natarajan MD Attn: Matt trey,[address] [place], [address], [place] [facility] 3 21:29:52 Proteinu dipti 36608469 Active 2015 Gene Natarajan MD Attn: Matt trey,[address] [place], [address], [place] [facility] 3 21:25:04 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 96400752 Active 2013 Gene Natarajan MD Attn: Matt yang,[address] [place], [address], [place] [facility] 3 21:24:18 Benign essentia l hyperten hermes 2769161 Completed 201109/07/2012 Location : None;Sev erity: Moderate ;Progres s: Stable;A dded By: Anahi Marina; Add to Current Problems : NO Gene Natarajan MD Attn: Matt yang,[address] [place], [address], [place] [facility] 3 21:24:06 Benign essentia l hyperten hermes 6160810 Active 2015 Gene Natarajan MD Attn: Matt yang,[address] [place], [address], [place] [facility] 3 21:24:06 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 64163848592 07 Active 2011 Gene Natarajan MD Attn: Matt yang,[address] [place], [address], [place] [facility] 3 21:24:12 Long-ter m drug therapy Completed 201406/29/2020 Gene Natarajan MD Attn: Matt yang,[address] [place], [address], [place] [facility] 3 21:28:13 Localize d adiposit y 783154014 Completed 201108/23/2023 Gene Natarajan MD Attn: Matt yang,[address] [place], [address], [place] [facility] 3 21:25:28 Allergic rhinitis 16377075 Completed 201208/18/2013 Gene Natarajan MD Attn: Matt yang,[address] [place], [address], [place] [facility] 3 21:31:55 Acute non-supp urative serous otitis media 856035162 Completed 201110/08/2012 Gene Natarajan MD Attn: Matt yang,[address] [place], [address], [place] - [facility] 3 21:29:14 Problem Notes None recorded. Procedures Surgical History Date Name Laterality Status Provider Name and Address Organization Details Recorded Time 04/18/20 24 Knee arthroscopy/daniel kadeem completed Rafia Berrios MA MD - [facility] 06/14/2024 11:44:31 Angioplasty With Stent completed [facility] - [facility] 05/21/2017 14:04:02 Xcapsl ctrc rmvl cplx wo ecp completed [facility] - [facility] 11/14/2016 09:52:57 Imaging Results Imaging Date Name Status LastModified by Organization Details LastModified Time 12/15/2023 electrocardiogram completed [facility] In-Offi ce Order Internal Use Only DO Not Attach Compendium DO Not Attach Compendium, Do Not Delete/merge, [id number] 12/15/2023 15:19:07 01/11/2024 lexiscan cardiolite stress test (PROC) completed [address] [facility] [address] [place] [address] [place], [address], 01/12/2024 09:30:30 01/11/2024 lexiscan cardiolite stress test (PROC) completed [address] [place], [address], 01/11/2024 14:53:31 11/28/2024 US, renal completed [address] [place], [address], 12/01/2024 15:01:40 Procedure Notes None recorded. Medical Equipment None Reported. Allergies Allergen ID Allergen Name Allergen Category Reaction Reaction Severity Criticality Documentation Date Start Date Code Code System Note Provider Name and Address Organization Details Recorded Time 184947 cyclobenz aprine medicatio n Not available Not available Not available 06/07/2018 00105 RxNorm did not like the way he felt takin g it Not Available Not Available Not Available 843926 doxycycli ne Not available confusion Not available low 03/03/2023 3640 RxNorm Not Available Not Available Not Available 86280 Zestril medicatio n cough moderate Not available 10/22/20162012 83367 2 RxNorm React ion: cough ;Nidhi rity: Moder ate; Comme nt: StopR himanshu : Docum ented in error ;Devin rglissett Delet ed On: 11/17;A llgoran y Type: Adver se React ion; Not Available Not Available Not Available Medications Name Sig Start Date Stop Date Status Note LastModified by Organization Details LastModified Time cyclobenza beth 10 mg tablet Take 1 tablet 3 times a day by oral route as needed. 06/07 completed Not Available Not Available Not Available atorvastat in 40 mg tablet Take 1 tablet every day by oral route. 10/31 completed Not Available Not Available Not Available prednisone 10 mg tablet 04/25 completed Not Available Not Available Not Available donepezil 5 mg tablet TAKE 1 TABLET BY MOUTH EVERY NIGHT AT BEDTIME WITH FOOD OR ABOUT 30 MINUTES AFTER EATING 06/14 completed Not Available Not Available Not Available ketoconazo le 2 % shampoo SHAMPOO SCLAP TWICE A WEEK FOR FIVE MINUTES THEN RINSE active Not Available Not Available No t Available ofloxacin 0.3 % eye drops 12/13 completed Not Available Not Available Not Available metoprolol succinate ER 50 mg tablet,ext ended release 24 hr Take 1 tablet(s) by mouth daily 10/08 completed Not Available Not Available Not Available Zestril 5 mg tablet Take 1 tablet(s) by mouth daily 06/02 completed RxNorm : 360180 ;Allow Substi tution : True Not Available Not Available Not Available hydrocodon e 5 mg-acetami nophen 325 mg tablet TAKE 1 TABLET BY MOUTH EVERY 4 HOURS NEEDED FOR PAIN 06/14 completed Not Available Not Available Not Available fluticason e propionate 0.05 % topical cream prn 02/16 completed Not Available Not Available Not Available donepezil 10 mg tablet TAKE 1 TABLET BY MOUTH NIGHTLY. TAKE THIS MEDICATIO N WITH FOOD OR WITHIN 30 MINUTES AFTER A MEAL active Not Available Not Available No t Available clopidogre l 75 mg tablet Take 1 tablet every day by oral route. 10/31 completed Not Available Not Available Not Available omeprazole 40 mg capsule,de layed release Take 1 po daily prn 04/27 completed RxNorm : 423270 ;Allow Substi tution : True Not Available Not Available Not Available tramadol 50 mg tablet 1-2 PO Q6hrs prn pain 05/25 completed RxNorm : 938708 ;Allow Substi tution : True Not Available Not Available Not Available simvastati n 40 mg tablet Take 1 tab qd 06/04 completed RxNorm : 043707 ;Allow Substi tution : True Not Available Not Available Not Available ketorolac 0.5 % eye drops 12/13 completed Not Available Not Available Not Available amoxicilli n 875 mg tablet Take 1 tab by mouth every 12 hours x 10 days 12/13 completed Not Available Not Available Not Available famotidine 20 mg tablet 1 po daily as needed 12/30 completed RxNorm : 261362 ;Allow Substi tution : True Not Available Not Available Not Available prednisolo ne acetate 1 % eye drops,susp ension 12/13 completed Not Available Not Available Not Available Afrin Menthol Chamisal 0.05 % nasal spray 2 to 3 spray(s) in each nostril q12h 05/09 completed Allow Substi tution : True Not Available Not Available Not Available aspirin 325 mg tablet,del ayed release Take 1 tablet(s) by mouth qam 05/25 completed RxNorm : 807876 ;Allow Substi tution : True Not Available Not Available Not Available cephalexin 500 mg capsule Take 1 capsule every 8 hours by oral route. 05/21 completed Not Available Not Available Not Available pantoprazo le 40 mg tablet,del ayed release TAKE 1 TABLET BY MOUTH DAILY 11/30 completed Not Available Not Available Not Available simvastati n 20 mg tablet one PO daily 10/29 completed RxNorm : 883171 ;Allow Substi tution : True Not Available Not Available Not Available erythromyc in 5 mg/gram (0.5 %) eye ointment 04/25 completed Not Available Not Available Not Available halobetaso l propionate 0.05 % topical ointment 03/09 completed Not Available Not Available Not Available losartan 25 mg tablet TAKE 1 TABLET BY MOUTH TWICE DAILY active Not Available Not Available No t Available omeprazole 20 mg capsule,de layed release Take 1 by mouth daily 05/17 completed RxNorm : 205723 ;Allow Substi tution : True Not Available Not Available Not Available Tylenol 325 mg tablet Take 1 to 2 tablet(s) by mouth q 4 to 6 hr prn 07/18 completed RxNorm : 420130 ;Allow Substi tution : True Not Available Not Available Not Available hydroxyzin e HCl 25 mg tablet TAKE 1 TO 2 TABLETS BY MOUTH AT BEDTIME NEEDED 02/16 completed Not Available Not Available Not Available metoprolol succinate ER 25 mg tablet,ext ended release 24 hr Take 1 tablet twice a day by oral route for 90 days. 12/15 completed Not Available Not Available Not Available triamcinol one acetonide 0.1 % lotion APPLY DAILY TO INVOLVED AREAS OF SCALP UNTIL CLEAR 10/31 completed Not Available Not Available Not Available methylpred nisolone 4 mg tablets in a dose pack Take as directed with food 03/09 completed Not Available Not Available Not Available clobetasol 0.05 % scalp solution APPLY TO THE AFFECTED SCALP AREA BY TOPICAL ROUTE 2 TIMES PER DAY IN THE MORNING AND EVENING 04/25 completed Not Available Not Available Not Available fluticason e propionate 50 mcg/actuat ion nasal spray,susp ension SHAKE LIQUID AND USE 2 SPRAYS IN EACH NOSTRIL DAILY NEEDED 12/15 completed Not Available Not Available Not Available doxycyclin e hyclate 100 mg tablet TAKE 1 TABLET BY MOUTH TWICE DAILY FOR 7 DAYS 03/03 completed Not Available Not Available Not Available amoxicilli n 875 mg-potassi um clavulanat e 125 mg tablet TAKE 1 TABLET BY MOUTH EVERY 12 HOURS FOR 7 DAYS 08/10 completed Not Available Not Available Not Available amoxicilli n 500 mg-potassi um clavulanat e 125 mg tablet 05/23 completed Not Available Not Available Not Available Adult Low Dose Aspirin 81 mg tablet,del ayed release Take 1 tablet every day by oral route. 06/14 completed Not Available Not Available Not Available metoprolol tartrate 25 mg tablet Take 1 tab po bid 05/23 completed Not Available Not Available Not Available Vitamin B12 1 tablet daily 10/31 completed Not Available Not Available Not Available Mucinex D Maximum Strength 120 mg-1,200 mg tablet,ext ended release Take 1 tablet(s) by mouth q12h 07/18 completed RxNorm : 525914 ;Allow Substi tution : True Not Available Not Available Not Available Mucinex DM 60 mg-1,200 mg tablet,ext ended release 12 hr Take 1 tablet po bid prn 05/14 completed RxNorm : 751758 ;Allow Substi tution : True Not Available Not Available Not Available Effient 10 mg tablet Take 1 po daily 05/17 completed RxNorm : 704341 ;Allow Substi tution : True Not Available Not Available Not Available Eliquis 5 mg tablet 08/12 completed Not Available Not Available Not Available Stimulant Laxative Plus 8.6 mg-50 mg tablet TAKE 1 TABLET BY MOUTH DAILY 10/31 completed Not Available Not Available Not Available Shingrix (PF) 50 mcg/0.5 mL intramuscu lar suspension , kit 06/13 completed Not Available Not Available Not Available Fluzone High-Dose Quad 2020-21 (PF) 240 mcg/0.7 mL IM syringe PHARMACY ADMINISTE RED 08/31 completed Not Available Not Available Not Available BinaxNOW COVID-19 Ag Self Test kit TEST DIRECTED TODAY 02/16 completed Not Available Not Available Not Available Vitals Date Recorded Body height Body mass index (BMI) Body weight Oxygen saturation Oxygen saturation in Arterial blood by Pulse oximetry Heart rate Systolic blood pressure Diastolic blood pressure Provider Name and Address Organization Details Last Updated DateTime 4 172.72 cm 25.6 kg/m2 94235.9 6 g 97 % 97 % 67 /min 124 mm[Hg] 62 mm[Hg] Rafia Berrios [place] [facility] 4 15:23:41 Date Recorded Body height Body mass index (BMI) Body weight Body temperature Oxygen saturation Oxygen saturation in Arterial blood by Pulse oximetry Heart rate Systolic blood pressure Diastolic blood pressure Provider Name and Address Organization Details Last Updated DateTime 4 172.72 cm 25.5 kg/m2 57746.5 2 g 97.7 [degF] 98 % 98 % 65 /min 151 mm[Hg] 65 mm[Hg] Nader Ho MA [facility] 4 12:07:36 Date Recorded Body height Body mass index (BMI) Body weight Body temperature Oxygen saturation Oxygen saturation in Arterial blood by Pulse oximetry Heart rate Systolic blood pressure Diastolic blood pressure Provider Name and Address Organization Details Last Updated DateTime 4 172.72 cm 24.5 kg/m2 80036.7 7 g 98 [degF] 96 % 96 % 60 /min 137 mm[Hg] 63 mm[Hg] Malia Ham MA [facility] 4 15:40:17 Date Recorded Body height Body mass index (BMI) Body weight Oxygen saturation Oxygen saturation in Arterial blood by Pulse oximetry Heart rate Systolic blood pressure Diastolic blood pressure Provider Name and Address Organization Details Last Updated DateTime 4 172.72 cm 24.5 kg/m2 58869.8 1 g 97 % 97 % 66 /min 136 mm[Hg] 54 mm[Hg] Rafia Berrios MA [facility] 4 11:47:19 Date Recorded Body height Body mass index (BMI) Body weight Heart rate Oxygen saturation Oxygen saturation in Arterial blood by Pulse oximetry Systolic blood pressure Diastolic blood pressure Provider Name and Address Organization Details Last Updated DateTime 5 172.72 cm 24.3 kg/m2 75674.7 g 60 /min 98 % 98 % 130 mm[Hg] 70 mm[Hg] Sierra Craven MA [facility] 5 16:16:07 Social History Question Answer Notes LastModified by Organizat ion Details LastModified Time Tobacco Smoking Status Former Smoker Sylvie castellanos [facility] 11/14/2016 09:51:32 Do You Have An Advance Directive? Yes [email or web address] Information not available 04/25/2021 What Is Your Level Of Alcohol Consumption? Occasional [email or web address] Information not available 04/25/2021 Are You Blind Or Do You Have Difficulty Seeing? No [email or web address] Information not available 04/25/2021 What Is Your Level Of Caffeine Consumption? None [email or web address] Information not available 04/25/2021 In The 14 Days Before Symptom Onset, Have You Had Close Contact With A Laboratory-confir med COVID-19 While That Case Was Ill? No [email or web address] Information not available 04/25/2021 In The 14 Days Before Symptom Onset, Have You Had Close Contact With A Person Who Is Under Investigation For COVID-19 While That Person Was Ill? No Information not available 04/25/2021 Have You Been To An Area Known To Be High Risk For COVID-19? No Information not available 04/25/2021 Are You Currently Employed? Yes [email or web address] Information not available 04/25/2021 Are You Deaf Or Do You Have Serious Difficulty Hearing? No [email or web address] Information not available 04/25/2021 What Was The Date Of Your Most Recent Tobacco Screening? 10/31/2024 Information not available 10/31/2024 What Is Your Relationship Status? [email or web address] Information not available 04/25/2021 Do You Use Your Seat Belt Or Car Seat Routinely? Yes [email or web address] Information not available 04/25/2021 Do You Have Smoke And Carbon Monoxide Detectors In Your Home? Yes [email or web address] Information not available 04/25/2021 Are You Passively Exposed To Smoke? No [email or web address] Information no t available 04/25/2021 Do You Feel Stressed (tense, Restless, Nervous, Or Anxious, Or Unable To Sleep At Night)? [id number] [email or web address] Information not available 04/25/2021 Do You Use Any Illicit Or Recreational Drugs? No [email or web address] Information not available 04/25/2021 Has Tobacco Cessation Counseling Been Provided? No Information not available 10/31/2024 Do You Or Have You Ever Used Any Other Forms Of Tobacco Or Nicotine? No Information not available 10/31/2024 Sex: Male Functional Status Question Answer Note LastModified by Organization D etails LastModified Time Are you able to care for yourself? Yes Information n ot available 04/25/2021 Mental Status None recorded. Family History Relationship Description Onset Age of this Age Resolved Age Notes LastModified by Organization Details LastModified Time Father Blood coagulation disorder [email or web address] Not available 09:53:28 Sister Blood coagulation disorder [email or web address] Not available 09:53:28 Sister Malignant tumor of breast [email or web address] Not available 09:53:44 Brother Blood coagulation disorder [email or web address] Not available 09:53:28 Brother Coronary arterioscler osis [email or web address] Not available 09:53:51 Brother Heart disease [email or web address] Not available 09:54:17 Mother Diabetes mellitus [email or web address] Not available 09:53:59 Mother Hypertensive disorder [email or web address] Not available 09:54:09 Medical History Condition Response Coronary Artery Disease Y Muscle, Joint, or Bone Problems Y Acid Reflux (GERD) Y High Blood Pressure Y High Cholesterol Y Immunizations Vaccine Type Date Status Note Provider Nam e and Address Organization Details Recorded Time zoster recombinant 9 completed MARNI Caal Attn: [address] [place] [address], [place] [facility] 02/16/2023 14:56:05 zoster recombinant 9 completed MARNI Caal Attn: [address] [place], [place], [address] [place] [address], [place] [facility] 02/16/2023 14:55:53 Influenza, high-dose, trivalent, PF 9 completed MARNI Caal Attn: [address] [place], [address] [place] [address], [place] [facility] 02/16/2023 14:56:06 Influenza, high-dose, trivalent, PF 0 completed MARNI Caal Attn: Accounting,[address] [place], [address] [place] [address], [place] [facility] 02/16/2023 14:55:54 Influenza, high-dose, quadrivalent, PF 2 completed MARNI Caal Attn: Account[address] [place], [address] [place] [address], [place] [facility] 02/16/2023 14:56:06 COVID-19, mRNA, LNP-S, PF, 100 mcg/0.5mL dose or 50 mcg/0.25mL dose 1 completed MARNI Caal Attn: [address] [place], [address] [place] [address], [place] [facility] 02/16/2023 14:56:06 COVID-19, mRNA, LNP-S, PF, 100 mcg/0.5mL dose or 50 mcg/0.25mL dose 1 completed MARNI Caal Attn: Accounting,[address] [facility], [place], [place], [address] [place] [address], [place] [facility] 02/16/2023 14:56:06 COVID-19, mRNA, LNP-S, PF, 100 mcg/0.5mL dose or 50 mcg/0.25mL dose 2 completed MARNI Caal Attn: Accounting,[address] [place], [address] [place] [address], [place] [facility] 02/16/2023 14:56:06 COVID-19, mRNA, LNP-S, PF, 100 mcg/0.5mL dose or 50 mcg/0.25mL dose 1 completed MARNI Caal Attn: Accounting,[address] [place], [address] [place] [address], [place] [facility] 02/16/2023 14:56:06 COVID-19, mRNA, LNP-S, bivalent, PF, 50 mcg/0.5 mL or 25mcg/0.25 mL dose 3 completed MARNI Caal Attn: Accounting,[address] [place], [address] [place] [address], [place] [facility] 02/16/2023 14:56:06 Influenza, high-dose, trivalent, PF 6 completed MARNI Caal Attn: Accounting,[address] [place], [address] [place] [address], [place] [facility] 02/16/2023 14:56:06 Influenza, split virus, trivalent, preservative 2 completed MARNI Caal Attn: Accounting,[address] [place], [address], [place] [facility] 02/16/2023 14:56:06 Influenza, split virus, quadrivalent, PF 1 completed MARNI Caal Attn: Accounting,[address] [place], [address], [place] [facility] 02/16/2023 14:56:06 COVID-19 mRNA, bivalent, original/Omicron BA.1, Non-US Vaccine (Spikevax Bivalent), Moderna 3 completed Nader [place], [place] [facility] 08/12/2023 16:46:42 Influenza, high-dose, quadrivalent, PF 3 completed Nader [place] [facility] 08/12/2023 16:47:09 Respiratory syncytial virus (RSV), unspecified 3 completed Nader [place] [facility] 08/12/2023 16:47:36 COVID-19, mRNA, LNP-S, PF, 50 mcg/0.5 mL 4 completed [place]ela [place] [facility] 08/15/2024 13:55:15 Influenza, high-dose, trivalent, PF 4 completed [place] [facility] 08/15/2024 13:55:32 Influenza, split virus, quadrivalent, preservative 7 completed Not Available [facility] 11/05/2019 02:49:48 Influenza, split virus, quadrivalent, preservative 8 completed Not Available [facility] 11/05/2019 02:47:15 Influenza, split virus, trivalent, preservative 3 completed MARNI Caal Attn: Accounting,[address] [facility], [place], [address], [place] [facility] 02/16/2023 14:55:54 Influenza, split virus, trivalent, preservative 4 completed MARNI Caal Attn: Accounting,[address] [facility], [place], [place], [address] [place] [address], [facility] 02/16/2023 14:55:54 Tdap 5 completed MARNI Caal Attn: Accounting,[address] [facility], [place], [place], [address] [place] [address], [facility] 02/16/2023 14:55:53 pneumococcal polysaccharide PPV23 1 completed MARNI Caal Attn: Accounting,[address] [facility], [place], [place], [address] [place] [address], [facility] 02/16/2023 14:55:53 Pneumococcal conjugate PCV 13 5 completed MARNI Caal Attn: Accounting,[address] [facility], [place], [place], [address] [place] [address], [facility] 02/16/2023 14:55:54 Influenza, split virus, quadrivalent, preservative 5 completed MARNI Caal Attn: Accounting,[address] [facility], [place], [place], [address] [place] [address], [facility] 02/16/2023 14:55:53 zoster live 2 completed MARNI Caal Attn: Accounting,[address] [facility], [place], [place], [address] [place] [address], [facility] 02/16/2023 14:56:06 Td (adult), 2 Lf tetanus toxoid, preservative free, adsorbed 4 completed MARNI Caal Attn: Accounting,[address] [facility], [place], [place], [address] [place] [address], [facility] 02/16/2023 14:56:06 Influenza, split virus, trivalent, preservative 1 completed MARNI Caal Attn: Accounting,[address] [facility], [place], [place], [address] [place] [address], [facility] 02/16/2023 14:55:54 Past Encounters Encounter ID Performer Location Encounter Start Date Encounter Closed Date Diagnosis/Indication Diagnosis SNOMED-CT Code Diagnosis ICD10 Code Diagnosis Note [id number] MARNI [facility] [address] [place] [address] 11/14/2016 09:38:36 11/17/2016 11:05:21 Benign essential hypertension 9826104 I10 [facility] 39388995 L21.8 [id number] N[facility] [address] [place] [address] 11/17/2016 17:05:45 11/18/2016 13:45:13 Acute maxillary sinusitis 17889910 J01.00 [id number] Sylvie Tobin [facility] [address] [place] [address] 05/25/2017 10:29:36 05/26/2017 12:26:24 Benign essential hypertension 0194372 I10 Coronary arteriosclerosis in [place] artery 0655531890 107 I25.10 [id number] Rogelio Montalvo [facility] [address] [place] [address] 07/24/2017 12:33:53 07/24/2017 13:05:50 Administration of influenza vaccine 40994986 Z23 [id number] Rogelio Montalvo MD [facility] [address] [place] [address] 11/30/2017 10:27:20 11/30/2017 18:02:10 Benign essential hypertension 9776694 I10 Coronary arteriosclerosis in [place] artery 2478349518 107 I25.10 [id number] Sylvie Tobin [facility] [address] [place] [address] 03/12/2018 15:40:38 03/16/2018 09:48:37 Strain of left trapezius muscle 7660543079 9876583 S29.012A heat prn Neck pain 14157961 M54.2 [id number] Rogelio Montalvo MD [facility] [address] [place] [address] 06/07/2018 11:39:36 06/08/2018 12:11:34 Benign essential hypertension 4037609 I10 Coronary arteriosclerosis in [place] artery 4451025983 107 I25.10 Neck pain 46823340 M54.2 [id number] Irma Chino LPN [facility] [address] [place] [address] 08/13/2018 15:06:26 08/16/2018 09:07:30 Administration of influenza vaccine 44617642 Z23 [id number] Catarina Ocasio MD [facility] [address] [place] [address] 10/08/2018 14:44:57 10/11/2018 10:46:48 Acute right otitis media 427944900 H66.91 you will call if not feeling better with treatment Upper resp iratory infection 86169610 J06.9 drink extra fluids and rest-- eat yogurt for GI effects and call if not better with treatment Post-infla mmatory hyperpigmentation 212890092 L81.0 will try HYDROCORTI SONE ( CORTAID) twice a day for 1-2 weeks and use BENEDRYL as needed for itching-- to avoid long actine antihistam ana ( claritin or allergra or zyrtec) since he is male-- prostate effects [id number] MICHELLE Amos [facility] [address] [place] [address] 12/13/2018 10:38:19 12/14/2018 09:26:41 Benign essential hypertension 1955378 I[address] Lares Coronary arteriosclerosis in [place] artery [address]30694594 [address] Garcia had negative stress test. Hyperlipidemia 07656311 E78.[address] Lares Impaired f asting glycemia 288733522 R73.01 Pre-surger y evaluation 100880973 Z01.818 cleared for surgeryStr ess test negative from 12/09/2018 [id number] MICHELLE Amos [facility] [address] [place] [address] 06/13/2019 11:23:27 06/13/2019 12:41:55 Benign essential hypertension 5883719 I[address] Levin lab for scheduled from Dr. Lares for July 48883418 L30.9 Hyperlipidemia 24447726 E78.[address] Lares Overweight 254209328 E66 .3 has lost 4 labs since last OV been exercising . [id number] MICHELLE Amos [facility] [address] [facility] [place] [address] 08/29/2019 11:23:19 08/29/2019 14:36:18 Cervical radiculopathy 01435827 M54.12 cont with tylenol as needed. [id number] [facility] [address] [place] [address] 12/23/2019 10:33:52 12/26/2019 10:26:53 Benign essential hypertension 5451994 I[address] Garrison goal Hyperlipidemia 60170006 E78.[address] Garrison goal Decreasing your cholestero l can help decreases your risk of heart disease. Reduce your dietary intake of fats to less than 30 percent of your total calories. Minimize use of trans fats. The following foods contain high levels of trans fat: fried foods like doughnuts, and baked goods including cakes, pie crusts, biscuits, frozen pizza, cookies, crackers, and stick margarines and other spreads. Eat a dietary pattern that focuses on fruits, vegetables , whole grains, low-fat dairy products, poultry, fish and nuts. Also limit red meat and sugary foods and beverages. Use naturally occurring, unhydrogen ated vegetable oils such as canola, safflower, sunflower or olive oil most often. Look for processed foods made with unhydrogen ated oil rather than partially hydrogenat ed or hydrogenat ed vegetable oils or saturated fat. Use soft margarine as a substitute for butter, and choose soft margarines (liquid or tub varieties) over harder stick forms. Look for 0 g trans fat on the Nutrition Facts label and no hydrogenat ed oils in the ingredient s list. Limit commercial ly fried foods and baked goods made with shortening or partially hydrogenat ed vegetable oils. Not only are these foods very high in fat, but that fat is also likely to be trans fat. Exercise at least 30 minutes on most days of the week. This can help increase your HDL (good cholestero l). Overweight 338119916 E66 .3 has lost 4 labs since last OV been exercising . [id number] MICHELLE Amos [facility] [address] [place] [address] 02/14/2020 10:20:26 02/14/2020 15:55:23 Hip pain 91002971 M25.559 follow up in 2 weeks if no better we will get xray Strain of tendon of wrist 338939990 S66.911A [id number] MICHELLE Amos [facility] [address] [place] [address] 03/09/2020 11:23:14 03/09/2020 12:57:03 Pain of left hip joint 3045035909 85542 M25.552 suspect bursitis/ arthritis. Tylenol extra strength as neededWe will await x ray result then either do PT or ortho [id number] MICHELLE Amos [facility] [address] [place] [address] 05/23/2020 13:31:52 05/23/2020 16:49:33 Exposure to SARS-CoV-2 556480387 Z20.828 he will get retested through [facility] symptoms resolved.- Wear a mask if you must be around other people. -Wash your hands often for 20 seconds with soap and water and clean high-touch surfaces daily [id number] MICHELLE Amos [facility] [address] [place] [address] 06/29/2020 09:13:15 07/02/2020 13:42:01 Benign essential hypertension 7952757 I[address] Garrison goal Hyperlipidemia 83723393 E78.[address] Garrison goal Decreasing your cholestero l can help decreases your risk of heart disease. Reduce your dietary intake of fats to less than 30 percent of your total calories. Minimize use of trans fats. The following foods contain high levels of trans fat: fried foods like doughnuts, and baked goods including cakes, pie crusts, biscuits, frozen pizza, cookies, crackers, and stick margarines and other spreads. Eat a dietary pattern that focuses on fruits, vegetables , whole grains, low-fat dairy products, poultry, fish and nuts. Also limit red meat and sugary foods and beverages. Use naturally occurring, unhydrogen ated vegetable oils such as canola, safflower, sunflower or olive oil most often. Look for processed foods made with unhydrogen ated oil rather than partially hydrogenat ed or hydrogenat ed vegetable oils or saturated fat. Use soft margarine as a substitute for butter, and choose soft margarines (liquid or tub varieties) over harder stick forms. Look for 0 g trans fat on the Nutrition Facts label and no hydrogenat ed oils in the ingredient s list. Limit commercial ly fried foods and baked goods made with shortening or partially hydrogenat ed vegetable oils. Not only are these foods very high in fat, but that fat is also likely to be trans fat. Exercise at least 30 minutes on most days of the week. This can help increase your HDL (good cholestero l). Overweight 277029851 E66 .3 has lost 16 labs since last OV been exercising . Arthritis of hip 7985583 6 M13.859 had hip injection helped some what Administra tion of influenza vaccine 84499731 Z23 Will get in July Osteoarthr itis of knee 059594956 M17.9 tylenol 500 mg 2 tabs 3 times per day as needed [id number] FRANKY [facility] [address] [place] [address] 08/31/2020 09:00:05 08/31/2020 11:32:06 Osteoarthritis of knee 771631629 M17.9 tylenol 500 mg 2 tabs 3 times per day as neededHad injections 08/30/2020 Benign ess ential hypertension 4071812 I[address] Garrison goal Eczema 17105363 L30.9 stable, worse in winter time Hyperlipidemia 20547351 E78.[address] Lares, LDL at goal Overweight 089431231 E66 .3 has lost 6 labs since last OV been exercising . Coronary arteriosclerosis 53746858 I25.10 stent time [address] Rahman Stented co ronary artery 817873550 Z95.5 on clopidagir l stable LDL at goalper DR Lares Coronavirus infection 18 2485287 B34.2 recovered, doing well. Arthritis of hip 7999823 6 M13.859 had hip injection helped some whattyleno l 500 mg 2 tabs 3 times per day as needed [id number] MARNI Ruby [facility] [address] [place] [address] 04/25/2021 12:56:14 04/25/2021 16:34:25 Pharyngitis 280318939 J02.9 I told Joseph to start drinking hot beverages, Tea with lemon etc and push other non caffeinate d beverages. Salt water gargle encouraged and to call if dysphagia worsens for strep screen, or if any further symptoms develop to update us. Likely viral. [id number] MARNI Caal [facility] [address] [place] [address] 02/16/2023 14:01:17 02/17/2023 10:33:44 Cough 58558043 R05.9 Acute uppe r respiratory infection 20427691 J06.9 We did discuss that given length of time of symptoms this is probable allergic rhinitis vs viral URI. However, given his is currently going through chemothera py and is immunocomp romised will treat more aggressive ly with augmentin. Get plenty of rest, push fluids, vaporizer, saline nasal spray, robitussin for cough prn, tylenol for OCHOA prn, call back if persistent colored nasal drainage or sputum, fevers, sinus pain, SOB. [id number] MARNI Caal [facility] [address] [place] [address] 03/03/2023 13:16:33 03/03/2023 17:19:10 Acute upper respiratory infection 87189655 J06.9 Will give longer dose of augmentin for current symptoms. Recommend adding in nasal spray for 1-2 weeks for post nasal drink and phlegm production . Treating aggressive ly due to is currently going through chemothera py and is immunocomp romised. Get plenty of rest, push fluids, vaporizer, saline nasal spray, robitussin for cough prn, tylenol for OCHOA prn, call back if persistent colored nasal drainage or sputum, fevers, sinus pain, SOB. [id number] Gene Natarajan MD [facility] [address] [place] [address] 08/12/2023 15:44:16 08/26/2023 08:55:09 Bilateral shoulder joint pain 8995012739 9263480 M25.511 M25.512 - severe osteoarthr itis +/- adhesive capsulitis +/- rotator cuff pathology- No shoulder imaging in EMR - ordering- physical therapy referral for assessment and potential interventi ons- Orthopedic referral for evaluation and potential interventi ons Bilateral hip joint pain 3810700219 3839755 M25.551 M25.552 - suspect, severe osteoarthr itis- last imaging in EMR from 2019- physical therapy referral for assessment and potential interventi ons Pain of bi lateral knee joints 7363414045 96121 M25.561 M25.562 - known osteoarthr itis to bilateral knees, will obtain films to assess severity- From physical therapy for potential interventi ons- Likely will need to return to orthopedic s as he has been there previously for treatment [id number] Jarod Miller MD [facility] [place] [facility] [address] [facility] [address] [place] [address] 12/15/2023 15:08:07 12/16/2023 11:35:27 Atherosclerosis of coronary artery without angina pectoris 7750724303 89427 I25.10 Hyperlipidemia 90749040 E78.5 Essential hypertension [id number] I10 Syncope [id number] R55 [id number] Gene Natarajan MD [facility] [address] [place] [address] 01/07/2024 11:27:57 01/08/2024 13:58:34 Pre-surgery evaluation [id number] Z01.818 Presently clinically stable for scheduled surgeryAvo idance of Aspirin or NSAIDS 5-7 days prior to surgery or as directed by surgeonEle ctrocardio gram: normal sinus rhythm, no significan t issues noted- Eng (Multifact orial) Index Score: 5, Class I (Low Risk)- Andrew (Revised) Score: 1, Class II (Low Risk)Low perioperat sary cardiovasc ular risk. No specific precaution s at this time. [id number] Gene Natarajan MD [facility] [address] [place] [address] 04/11/2024 14:56:36 04/11/2024 21:12:24 Constipation [id number] K59.00 handoutcom bination therapy: miralax, bisacodyl, sennaconsi minnie imaging if not responding [id number] Jarod Miller MD [facility] [place] [facility] [address] [place] [address] 06/14/2024 11:30:33 06/15/2024 10:36:15 Atherosclerosis of coronary artery without angina pectoris [id number] 24587 I25.10 Hyperlipidemia 40173343 E78.5 Essential hypertension [id number] I10 Syncope [id number] R55 [id number] Lisa Jalloh MD [facility] [employer] [address] [place] [address] 10/31/2024 15:09:19 10/31/2024 16:52:50 Body mass index 20-24 - normal [id number] Z68.24 Dementia 23471880 F03.90 Benign ess ential hypertension 2222769 I10 Stented co ronary artery 226811692 Z95.5 Osteoarthr itis of knee 578631869 M17.9 Hyperlipidemia 94399243 E78.5 Health Concerns Section Related Observation LastModified by Organization Detai ls LastModified Time None Recorded Concern Status LastModified by Organization Details LastModified Time None Recorded Advance Directives Directive Y: Payers Encounter Date Sequence Insurance Name Policy Number Policy Crystal Covered Member ID Crystal Member ID Guarantor Name 12/15/2023 3 [place] Joseph Nelson [id number] Joseph Nelson 12/15/2023 2 [employer] (MEDICARE SUPPLEMENT) PLAN G Joseph Nelson [id number] Joseph Murdockdejessica 01/07/2024 3 [place] Joseph Garciamann [id number] Joseph Murdockdemann 01/07/2024 2 [employer] LIFE INSURANCE [employer] (MEDICARE SUPPLEMENT) PLAN G Joseph Murdockdemann [id number] Joseph Murdockdemann 04/11/2024 3 [place] Joseph Bubba Murdockdemann [id number] Joseph Bubba Weidemann 04/11/2024 2 [employer] LIFE INSURANCE [employer] (MEDICARE SUPPLEMENT) PLAN G Joseph Murdockdemann [id number] Joseph Bubba Murdockdemann 06/14/2024 3 [place] Joseph Murdockdemann [id number] Joseph Mac Weidemann 06/14/2024 2 [employer] LIFE INSURANCE [employer] (MEDICARE SUPPLEMENT) PLAN G Joseph Murdockdemann [id number] Joseph Bubba Murdockdemann 10/31/2024 1 [place] RHC - FQHC Joseph Bubba Murdockbeckiejessica [id number] Joseph Bubba Weidemann 10/31/2024 2 [employer] (MEDICARE SUPPLEMENT) PLAN G Joseph Bubba Murdockbeckiemann [id number] Joseph Bubba Murdockbeckiejessica Notes Date Note Type Note Provider Name and Address Organization Details Recorded Time 12/15/2023 text/html 78-year-old shanta tesfaye who has known history of coronary artery disease status post PTCA with stent placement in left anterior descending artery and left circumflex artery. He had a cardiac catheterization on January 13, 2019 at that time the stents were patent. He had 20% stenosis proximal to left circumflex artery stent. He has 30% stenosis in mid right coronary artery. He had normal left ventricular systolic functions.He had 2 episodes of syncope. He had a event monitor for 30 days which shows sinus rhythm with occasional sinus tachycardia. There was no significant tachy-александр arrhythmia was noted. He has no further episodes of syncope. He was seen by neurologist recommended not to drive for next 6 months.Today he denies complaints of chest pain, shortness of breath, orthopnea and paroxysmal dyspnea. His mobility is somewhat limited mainly because of his knee pain. He is planning to have a knee surgery with Dr. Shannon. He has no orthopnea, paroxysmal dyspnea or edema of lower extremities. He denies palpitation, dizziness or syncope. 06/16/23 LABS: TC 150, TG 44, Hdl 70, Ldl 71, K 4.5, BUN 15, Creatinine 0.70, glucose 87, calcium 9.6, alt 18, ast 22, sodium 137 Cardiac Testin04/18/23 Event Monitor: Patient was monitor for 29 days. During this monitoring. He was in sinus rhythm. Pac and PVC burden was less than 1% of recorded QRS complexes. Minimum heart rate 49 beats per minute average heart rate 69 beats per minute maximum heart rate is 156 beats per minute. During this monitoring. No symptoms were reported. Sinus rhythm. No significant tachy-александр arrhythmia No symptoms were reported. 11/11/22 ECHO: E/E prime ratio is 8 -15 which is in the indeterminate zone. The left ventricular ejection fraction is normal. Ejection Fraction = 55-60%. 10/29/21 Stress: Excellent exercise capacity. Appropriate heart rate, blood pressure response to stress.No evidence of myocardial ischemia by EKG criteria. Separate Myoview report will be dictated. Normal left ventricular systolic function. No evidence of myocardial ischemia or infarction. 01/13/19 CATH: Mild coronary artery disease involving proximal left circumflex artery 20% stenosis.Right coronary artery 30% stenosis. The stent in left circumflex artery patent. The stent in left anterior descending artery is patent. Jarod Miller MD Attn: Accounting[address] [place], [address], [facility] 12/15/2023 16:08:03 01/07/2024 text/html PREOPERATIVE VISIT/SUBJECTIVE: Diagnosis: endstage osteoarthritis left knee Procedure: left total knee arthroplasty Surgeon: Shiva Date Of Surgery: pr24 No complications from previous anesthesia Patient has no active cardiac conditions {{No history of coronary artery disease or prior myocardial infarction Stable cardiovascular disease*}} No history of congestive heart failure No history of insulin-dependent diabetes mellitus No history of chronic kidney disease on hemodialysis Good functional status. Patient is able to walk four blocks or climb two flights of stairs Patient denies chest pain, dyspnea, or palpitations during the last six months Pertinent past medical, surgical, family and social history reviewed and updated as needed. Pertinent positives and negatives as noted in HPI. All other systems reviewed and negative. - Shank Pinner/Nursing note reviewed. - Gene Natarajan MD Attn: [address] [facility], [place], [address], [facility] 01/07/2024 13:08:16 04/11/2024 text/html ACUTE VISIT/SUBJECTIVE: Joseph presents with irregular bowel movements, noted more often in the past 6 months- tenesmus- fecal incontinence at football game - en route to bathroom- has been using Miralax- no hematochezia or melena- some change in stool form- weight loss since last visit - but dementia diagnosis-- not eating properly (per ) Some nocturia, daytime symptoms too- would like to defer any specific treatment at this time Pertinent past medical, surgical, family and social history reviewed and updated as needed.Pertinent positives and negatives as noted in HPI. All other systems reviewed and negative.-Shank Pinner/Nursing note reviewed.- Gene Natarajan MD Attn: [address] [facility], [place], [address], [facility] 04/11/2024 17:07:12 06/14/2024 text/html 78-year-old shanta tesfaye who has known history of coronary artery disease status post PTCA with stent placement in left anterior descending artery and left circumflex artery. He had a cardiac catheterization on January 13, 2019 at that time the stents were patent. He had 20% stenosis proximal to left circumflex artery stent. He has 30% stenosis in mid right coronary artery. He had normal left ventricular systolic functions.He had 2 episodes of syncope. He had a event monitor for 30 days which shows sinus rhythm with occasional sinus tachycardia. There was no significant tachy-александр arrhythmia was noted. He has no further episodes of syncope. He was seen by neurologist recommended not to drive for next 6 months.Today he denies complaints of chest pain, shortness of breath, orthopnea and paroxysmal dyspnea. His mobility is somewhat limited mainly because of his knee pain. He is planning to have a knee surgery with Dr. Shannon. He has no orthopnea, paroxysmal dyspnea or edema of lower extremities. He denies palpitation, dizziness or syncope. 05/07/2024: 79-year-old gentleman who has a coronary artery disease status post PTCA with stent placement left anterior descending artery and left circumflex artery in 2019 doing well. He has no symptoms of chest pain and shortness of breath. He had a Lexiscan Myoview in December of 2023 which was negative for myocardial ischemia he has normal left ventricular systolic function he had knee surgery and he recovered well. He denies complaints of chest pain and shortness of breath. He has no orthopnea and paroxysmal nocturnal dyspnea. His memory is worsening secondary to dementia. LABS:Lipids 06/07/24:total cholesterol 154, HDL 67, triglycerides 53, LDL 74Lipids 12/16/23:cholestrol 141, triglycerides 45, LDL 67, HDL 80CMP 12/16/23:glucose 88, BUN 20, eGFR 64, sodium 141, K+ 4.3, AST 22, ALT 21Lipids 06/16/23:total cholesterol 150, triglycerides 44, Hdl 70, Ldl 71,CMP 06/16/23:K+ 4.5, BUN 15, Creatinine 0.70, glucose 87, calcium 9.6, alt 18, ast 22, sodium 137 CARDIAC TESTING:LEXISCAN STRESS 01/11/24:No reversible or fixed perfusion defects to indicate myocardial ischemia or infarct . Normal left ventricular ejection fraction . No evidence of transient ischemic dilatation . No EKG changes diagnostic for ischemia post Lexiscan infusion. EVENT MONITOR 04/18/23:Patient was monitor for 29 days. During this monitoring. He was in sinus rhythm. Pac and PVC burden was less than 1% of recorded QRS complexes. Minimum heart rate 49 beats per minute average heart rate 69 beats per minute maximum heart rate is 156 beats per minute. During this monitoring. No symptoms were reported. Sinus rhythm. No significant tachy-александр arrhythmia No symptoms were reported. ECHO 11/11/22:E/E prime ratio is 8 -15 which is in the indeterminate zone. The left ventricular ejection fraction is normal. Ejection Fraction = 55-60%. STRESS 10/29/21Excellent exercise capacity. Appropriate heart rate, blood pressure response to stress. No evidence of myocardial ischemia by EKG criteria. Separate Myoview report will be dictated. Normal left ventricular systolic function. No evidence of myocardial ischemia or infarction. CARDIAC CATH 01/13/19:Mild coronary artery disease involving proximal left circumflex artery 20% stenosis.Right coronary artery 30% stenosis. The stent in left circumflex artery patent. The stent in left anterior descending artery is patent. Jarod Miller MD Attn: [address] [facility], [place], [address], [facility] 06/14/2024 12:15:22 10/31/2024 text/html 79-year-old with a history of hyperlipidemia , dementia, osteoarthritis, GERD, to establish care he is brought in with his . He answer some questions but she supplements the history as well overall has been doing fine states that his x ray equipment mechanic took him off his atorvastatin and clopidogrel. He has biggest complaint scalp itchingdenies. They deny any allergies but old records suggest cyclobenzaprine and doxycycline. Surgeries total knee arthroplasty family history 2 sisters with dementia socially does not smoke occasionally uses alcohol Lisa Jalloh MD Attn: [address] , [place], [address], [facility] 10/31/2024 22:54:22
[2024-12-04 19:23] VITALS: BP 144/54; PULSE 82; RESP 18; TEMP 39.1; O2SAT 95
[2024-12-04 20:07] LABS: Influenza A QL RT-PCR Positive (Negative); Influenza B QL RT-PCR Negative (Negative); RSV RNA, RT-PCR Negative (Negative); SARS-CoV-2 RNA PCR Negative (Negative)
[2024-12-04 21:27] LABS: Add Urine Microscopic? NO; Appearance Urine Clear (Clear); Bilirubin Urine Negative (Negative); Blood Urine Negative (Negative); Color Urine Yellow (Yellow); Glucose Urine UA Negative (Negative); Ketones Urine Negative (Negative); Leukocyte Esterase Ur Negative LEU/UL (Negative); Nitrate Urine Negative (Negative); Protein Urine Negative (Negative); Specific Grav Ur 1.011 (1.001-1.035); Urobilinogen Urine 0.2 mg/dL (<2.0)
--- NOTE | 2024-12-04 23:26 | ED_ITS ---
HPI - Fever General Chief Complaint: Fever Stated Complaint: fever, dementia, off all day. Time Seen by Provider: 12/04/24 23:21 Source: patient and family Mode of arrival: wheelchair Limitations: dementia History of Present Illness HPI Narrative: This is a 79-year-old male with PMH of dementia who presents with his family and for chief complaint of feeling unwell. They are reporting fever at home. On arrival his temperature is a 102.4? F. family members state the patient has been a little more out of it with his dementia. They are stating that he was very weak earlier today. They do note that while in the waiting room he seemed to improve a little bit regarding the weakness. Patient denies chest pain, shortness of breath, abdominal pain. Denies nausea, vomiting, diarrhea or urinary symptoms. Denies syncope or falls. Related Data Allergies Allergy/AdvReac Type Severity Reaction Status Date / Time No Known Allergies Allergy Verified 12/04/24 19:23 Review of Systems 2 Review of Systems: All systems as dictated in HPI Exam 2 Narrative: GENERAL: Well-appearing, well-nourished, and in no acute distress. HEAD: Normocephalic, atraumatic. EYES: PERRLA and EOMI. ENT: Nares clear, no rhinorrhea or epistaxis. Mucous membranes moist. Oropharynx without tonsillar hypertrophy exudate or other lesions. NECK: Supple. No adenopathy or masses. CHEST: No respiratory distress. Clear to auscultation. No wheezes rales or rhonchi HEART: Regular rate and rhythm. No murmur heard. Normal peripheral pulses. ABDOMEN: Soft, nontender, nondistended, normal active bowel sounds. MSK: Normal range of motion. No edema. SKIN: Warm, dry, no rash. NEURO: Alert and oriented x4. No focal deficits. PSYCH: Normal mood and affect. Course Vital Signs Vital signs: Vital Signs Temperature 102.4 F H 12/04/24 19:23 Pulse Rate 82 12/04/24 19:23 Respiratory Rate 18 12/04/24 19:23 Blood Pressure 144/54 H 12/04/24 19:23 Pulse Oximetry 95 12/04/24 19:23 Oxygen Delivery Room Air 12/04/24 19:23 Temperature 102.4 F H 12/04/24 19:23 Pulse Rate 82 12/04/24 19:23 Respiratory Rate 18 12/04/24 19:23 Blood Pressure 144/54 H 12/04/24 19:23 Pulse Oximetry 95 12/04/24 19:23 Oxygen Delivery Room Air 12/04/24 19:23 MDM - Fever MDM Narrative Medical decision making narrative: This is a 79-year-old male who presents to the ED for chief complaint of feeling unwell and fever. Vitals do show temperature elevated to 102.4? F on arrival. He was given Tylenol for this. Lab work is relatively unremarkable. White count slightly elevated at 12.0, however no evidence of pneumonia on exam or chest x-ray today. Urinalysis is clear for infection. UA is actually grossly normal. CMP revealing slightly elevated BUN of 33 and creatinine of 20.82, however I have no comparisons. Family is mentioning that he has had some elevated kidney numbers in the recent past. Patient was given a L of fluids on top of the Tylenol. He is well appearing on re-evaluation. He is ambulating about the department without assistance. Shared decision making with family regarding disposition. They are comfortable with patient being discharged home and following up with PCP. Rx for Tamiflu renally dosed. Patient will be discharged in stable condition. Supportive measures discussed and return precautions given. Patient is understanding and agreeable with plan for discharge with PCP follow-up. Lab Data 12/04/24 23:45 12/04/24 23:45 Labs: Lab Results 12/04/24 12/04/24 12/04/24 Range/Units 19:23 21:20 23:45 WBC 12.0 H (4.5-10.0) K/mm3 RBC 3.31 L (4.6-6.20) M/mm3 Hgb 10.5 L (14.0-18.0) g/dL Hct 32.5 L (42.0-52.0) % MCV 98.2 (80-100) fl MCH 31.7 (26-34) pg MCHC 32.3 (32-36) g/dl RDW 13.2 (11.5-14.5) % Plt Count 232 (150-375) k/mm3 MPV 10.0 (7.4-10.4) fl Immature Gran % (Auto) 0.5 (0-0.5) % Neut % (Auto) 82.8 H (45.5-73.1) % Lymph % (Auto) 7.6 L (18.3-44.2) % [place] % (Auto) 8.9 H (2.6-8.5) % Eos % (Auto) 0.0 (0-4.4) % Baso % (Auto) 0.2 (0.2-1.2) % Lymph # (Auto) 0.91 (0.9-3.2) K/mm3 [place] # (Auto) 1.1 H (0.1-0.6) K/mm3 Eos # (Auto) 0.0 (0-0.3) K/mm3 Baso # (Auto) 0.0 (0.0-0.1) K/mm3 Abs Immat Gran (auto) 0.06 H (0.00-0.031) K/mm3 Absolute Neuts (auto) 10.0 H (1.3-6.7) K/mm3 Absolute Nucleated RBC 0.000 (0.0-0.012) K/mm3 Nucleated RBC % 0.0 (0.0-0.2) % Sodium 138 (137-145) mmol/L Potassium 4.4 (3.4-5.0) mmol/L Chloride 100 (98-107) mmol/L Carbon Dioxide 26 (22-30) mmol/L Anion Gap 12 (4-12) mmol/L BUN 33 H (9-20) mg/dL Creatinine 1.82 H (0.7-1.3) mg/dL Estim Creat Clear Calc 27 ml/min Estimated GFR 36 L (59 - ) Glucose 110 (65-110) mg/dL Calcium 9.0 (8.4-10.2) mg/dL Phosphorus 3.8 (2.5-4.5) mg/dL Magnesium 2.0 (1.6-2.3) mg/dL Total Bilirubin 0.6 (0.2-1.3) mg/dL AST 31 (17-59) U/L ALT 19 (6-50) U/L Alkaline Phosphatase 64 (38-126) U/L Total Protein 7.0 (6.3-8.2) g/dL Albumin 4.2 (3.5-5.1) g/dL Urine Color Yellow (Yellow) Urine Appearance Clear (Clear) Urine pH 6.0 (5.0-9.0) Ur Specific [place] 1.011 (1.001-1.035) Urine Protein Negative (Negative) mg/dL Urine Glucose (UA) Negative (Negative) mg/dL Urine Ketones Negative (Negative) mg/dL Ur Blood (Man) Negative (Negative) Urine Nitrate Negative (Negative) Urine Bilirubin Negative (Negative) Urine Urobilinogen 0.2 (<2.0) mg/dL Leukocyte Esterase Rfl Negative (Negative) ESEQUIEL/UL Influenza A (RT-PCR) Positive A (Negative) Influenza B (RT-PCR) Negative (Negative) RSV (RT-PCR) Negative (Negative) SARS-CoV-2 RNA (RT-PCR) Negative (Negative) Discharge Plan Discharge Clinical Impression: Influenza Patient Disposition: Home, Self-Care Condition: Stable Instructions: Antibiotic Form, Influenza (ED) Additional Instructions: Exam today is reassuring overall, however your flu test is positive. Please take Tamiflu as prescribed. Follow-up with PCP closely on this issue. If you have any new or worsening symptoms please return to the ER for further evaluation. Patient Language: Maltese Prescriptions: New oseltamivir [Tamiflu] 30 mg capsule 30 mg PO DAILY 5 Days Qty: 5 0RF Follow-up/Referrals: Dimitrios,DO Sukhjinder [Non-Staff] - Time of Disposition: 01:22
[2024-12-04 23:51] LABS: Basophils Percent Auto 0.2 % (0.2-1.2); Hematocrit 32.5 % (42.0-52.0); Hemoglobin 10.5 g/dL (14.0-18.0); Immature Granulocyte Absolute 0.06 K/mm3 (0.00-0.031); Immature Granulocyte Percent A 0.5 % (0-0.5); Lymphocytes Absolute Auto 0.91 K/mm3 (0.9-3.2); Lymphocytes Percent Auto 7.6 % (18.3-44.2); Mean Corpuscular HGB Conc 32.3 g/dl (32-36); Mean Corpuscular Hemoglobin 31.7 pg (26-34); Mean Corpuscular Volume 98.2 fl (80-100); Monocytes Absolute Auto 1.1 K/mm3 (0.1-0.6); Monocytes Percent Auto 8.9 % (2.6-8.5); Neutrophils Percent Auto 82.8 % (45.5-73.1); Platelet Count Result 232 k/mm3 (150-375); Red Blood Count 3.31 M/mm3 (4.6-6.20); Red Cell Distribution Width 13.2 % (11.5-14.5)
--- OUTSIDE RECORDS SUMMARY | 2024-12-04 23:56 | XMS_ITS | Clinical Summary ---
Author Organization [facility] Address [address] [place] [address] Care Team Providers Care Qm Nurse Name Role Phone Rogelio Huerta DO Primary [...] osteoarthritic changes. Coronary artery disease invo [place]ving [place] coronary artery of [place] heart without angina pectoris 01/28/2019 Overview (07/22/2021): [...] MCG/ 0.5 ML DOSE 01/07/2021,11/29/2020 MODERNA COVID-19 (FOOD SALES CLERK YANNA ANTONIO), MRNA, LNP-S, PF, 50 MCG/ 0.25 ML DOSE 03/11/2022 Pneumococcal (Pneumovax 23) 10/19/2010 Pneumococcal (Prevnar 13) 06/04/2015 Shingrix 02/17/2019,12/09/2018 Td (TDVAX) 11/28/2003 Td (Tenivac) preservative free 11/28/2003 Tdap (Generic) 04/27/2015 Zoster (Zostavax) [address]11 Unt/0.65Ml 11/01/2011 Family History Medical History Relation [...] CDT Gender Identity Male 10/28/2021 9:47 AM MEDICAL OFFICE 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 Sexual Orientation Choose not to disclose 2021 4:58 AM CDT Last Filed Vital Signs Vital Sign Reading Time Taken Comments Blood Pressure 126/64 03/17/2023 9:39 AM CDT Pulse 62 03/17/2023 9:39 AM CDT Temperature 36.3 C (97.3 F) 03/17/2023 9:39 AM CDT Respiratory Rate 14 11/12/2022 1:36 PM MEDICAL OFFICE 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 Oxygen Saturation 99% 03/17/2023 9:39 AM CDT [...] - 1-dose 75+ series) 2020 PHQ-2 (Physician [place]) 03/17/2024 03/17/2023 COVID-19 Vaccine ( season) 2024 10/23/2022, 03/11/2022, 08/28/2021, Additional history exists Influenza Adult (#1) 2024 07/28/2022, 07/22/2021, 08/08/2020, Additional history exists PHQ-2 (Physician [place]) 10/19/2024 03/17/2023 DTaP, Tdap and Td Vaccines [...] Recently Relevant to Health Maintenance Insurance MEDICARE [facility] MD [employer] Care Teams Qm Nurse Relationship Specialty Start Date End Date Rogelio Huerta DO [address] [place] [address] PCP - General FAMILY PRACTICE 10/21/22
--- OUTSIDE RECORDS SUMMARY | 2024-12-04 23:56 | XMS_ITS | Encounter Summary ---
Author Organization [facility] Care Team Providers Care Platen Builder Up Name Role Phone Magaly Desai NP Primary Care Provider + [phone] Nunu Yo MD Primary Care Provider [phone] Magaly Desai ACID BLOWER Primary Care Provider + [phone] Sukhjinder Plunkett DO Primary Care Provider + [phone] Rogelio Huerta DO Unavailable [phone] Hector Marsh MD Primary Care Provider [phone] Tao Carevr MD Primary Care Provider + Jarod Miller MD Unavailable [phone] Pernell Jalloh MD Primary Care Provider [phone] Encounter Details Date Type Department Care Team (Latest Contact Info) Description 04/08/2016 Orders Only [facility] CLINCONV Provider, MD Travis [address] [place] [address] Social History Tobacco Use Types Packs/Day Years Used Date Smoking Tobacco: Never Assessed Sex and Gender Information Value Date Recorded Sex Assigned at Not on file Legal 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 Gender Identity Male 05/31/2024 10:17 AM CDT [...] on filedocumented in this encounter Care Teams Platen Builder Up Relationship Specialty Start Date End Date Magaly Desai NP PCP - General Nurse Practitioner 01/08/19 01/12/19 Nunu Yo MD [address] [address] PCP - General 01/13/19 07/01/20 Magaly Desai NP [address] [address] PCP - General 07/02/20 05/11/22 Sukhjinder Plunkett DO [address] [address] PCP - General Family Medicine 05/12/22 01/26/23 Hector Marsh MD [address] [place] [address] PCP - General Orthopedic Surgery 01/27/23 08/13/23 Tao Carver MD [address] [address] PCP - General Internal Medicine 08/14/23 11/22/24 Pernell Jalloh MD [address] [place] [address] PCP - General Internal Medicine 11/23/24 Rogelio Huerta DO [address] [place] [address] Family Medicine 01/09/23 Jarod Miller MD [address] [address] Referring Physician Cardiovascular Disease 01/05/2411/22/24 documented as of this encounter
--- OUTSIDE RECORDS SUMMARY | 2024-12-04 23:56 | XMS_ITS | Encounter Summary ---
Author Organization [facility] Facility Care Team Providers Care Quality Compliance Manager Name Role Phone Magaly Desai NP Primary Care Provider + [phone] Nunu Yo MD Primary Care Provider [phone] Magaly Desai BULK PICKER Primary Care Provider + [phone] Sukhjinder Plunkett DO Primary Care Provider + [phone] Rogelio Huerta DO Unavailable [phone] Hector Marsh MD Primary Care Provider [phone] Tao Carver MD Primary Care Provider + Jarod Miller MD Unavailable [phone] Pernell Jalloh MD Primary Care Provider +[phone] Encounter Details Date Type Department Care Team (Latest Contact Info) Description 12/09/2018 Orders Only [facility] CLINCONV Provider, MD Travis [address] [place] [address] Social History Tobacco Use Types Packs/Day Years Used Date Smoking Tobacco: Former Sex and Gender Information Value Date Recorded Sex Assigned at Not on file Legal Sex Male 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 us Historical Provider [facility] JERAD VELAZQUEZ Final Result documented in this encounter Visit Diagnoses Not on filedocumented in this encounter Care Teams Quality Compliance Manager Relationship Specialty Start Date End Date Magaly Desai NP PCP - General Nurse Practitioner 01/08/19 01/12/19 Nunu Yo MD [address] [address] PCP - General 01/13/19 07/01/20 Magaly Desai NP [address] [address] PCP - General 07/02/20 05/11/22 Sukhjinder Plunkett DO [address] [address] PCP - General Family Medicine 05/12/22 01/26/23 Hector Marsh MD [address] [address] PCP - General Orthopedic Surgery 01/27/23 08/13/23 Tao Carver MD [address] [address] PCP - General Internal Medicine 08/14/23 11/22/24 Pernell Jalloh MD [address] [place] [address] PCP - General Internal Medicine 11/23/24 Rogelio Huerta DO [address] [place] [address] Family Medicine 01/09/23 Jarod Miller MD [address] [address] Referring Physician Cardiovascular Disease 01/05/2411/22/24 documented as of this encounter
--- OUTSIDE RECORDS SUMMARY | 2024-12-04 23:56 | XMS_ITS | Encounter Summary ---
Author Organization [facility] Facility Care Team Providers Care Furniture Upholsterer Apprentice Name Role Phone Magaly Desai NP Primary Care Provider + [phone] Nunu Yo MD Primary Care Provider [phone] Magaly Desai PIGGERY WORKER Primary Care Provider + [phone] Sukhjinder Plunkett DO Primary Care Provider + [phone] Rogelio Huerta DO Unavailable [phone] Hector Marsh MD Primary Care Provider [phone] Tao Carver MD Primary Care Provider + Jarod Miller MD Unavailable [phone] Pernell Jalloh MD Primary Care Provider +[phone] Encounter Details Date Type Department Care Team (Latest Contact Info) Description 08/05/2016 Orders Only MMG CLINCONV Provider, MD Travis [address] [place] [address] Social History Tobacco Use Types Packs/Day Years Used Date Smoking Tobacco: Former Sex and Gender Information Value Date Recorded Sex Assigned at Not on file 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 Gender Identity Male 05/31/2024 10:17 AM CDT [...] on filedocumented in this encounter Care Teams Furniture Upholsterer Apprentice Relationship Specialty Start Date End Date Magaly Desai, LATRICE PCP - General Nurse Practitioner 01/08/19 01/12/19 Nunu Yo MD [address] [address] PCP - General 01/13/19 07/01/20 Magaly Desai NP [address] [address] PCP - General 07/02/20 05/11/22 Sukhjinder Plunkett DO [address] [address] PCP - General Family Medicine 05/12/22 01/26/23 Hector Marsh MD [address] [place] [address] PCP - General Orthopedic Surgery 01/27/23 08/13/23 Tao Carver MD [address] [address] PCP - General Internal Medicine 08/14/23 11/22/24 Pernell Jalloh MD [address] [place] [address] PCP - General Internal Medicine 11/23/24 Rogelio Huerta DO [address] [place] [address] Family Medicine 01/09/23 Jarod Miller MD [address] [address] Referring Physician Cardiovascular Disease 01/05/2411/22/24 documented as of this encounter
--- OUTSIDE RECORDS SUMMARY | 2024-12-04 23:56 | XMS_ITS | Clinical Summary ---
Author Organization [facility] Address [address] [place] [address] Care Team Providers Care Hide And Skin Fleshing Machine Operator Name Role Phone BradleyRogelio DO Unavailable [phone] Pernell Jalloh MD Primary Care Provider + [phone] Allergies Active Allergy Reactions Criticality Noted Date [...] daily Assessment & Plan (11/24/2024 4:37 PM BUSINESS ADMINISTRATION PROFESSOR): onset 2020 - Mini Mental State Exam [...] carbohydrate diet. Coronary artery disease invo lving [place] coronary artery of [place] heart without angina pectoris 01/28/2019 Assessment & Plan (06/05/2020 8:48 PM CDT): Therefore need to avoid oral nonsteroidal anti-inflammatories Pure hypercholesterolemia 01/28/2019 Essential hypertension 01/28/2019 Pain in shoulder 06/05/2016 Encounters Date Type Department Care Team Description 11/28/2024 4:28 PM BUSINESS ADMINISTRATION PROFESSOR - 11/28/2024 11:59 PM BUSINESS ADMINISTRATION PROFESSOR Hospital Encounter [address] [address] Abnormal results of kidney function studies Discharge Disposition: Discharge to home or self care 11/24/2024 3:15 PM BUSINESS ADMINISTRATION PROFESSOR Office Visit [address] 6th [address] [place] [address] Herber, Shayla Anand NP Alzheimer's [...] drink = 0.6 oz pur e alcohol) [facility] Utilities Answer Date Recorded In the past 12 months has [email or web address], oil, or water [employer] threatened to shut off services in your [...] often do you attend chur ch or religion services? Never 01/19/2024 Do you belong to any clubs o r organizations such as shinto groups, unions, fraternal or athletic groups, or [...] place to sleep or slept in a detention (including now)? No 01/19/2024 Personal Safety Answer Date Recorded Have you ever been in or are you currently in a harmful physical or emotional relationship or is someone making you feel afraid or unsafe? Denies 01/18/2024 Sex and Gender Information Value Date Recorded Sex Assigned at Not on file Legal Sex Male 8:15 AM BUSINESS ADMINISTRATION PROFESSOR Gender Identity Male 05/31/2024 10:17 AM CDT Sexual Orientation Not on file Occupation Industry Job Start Date Job End Date [employer] Not on file Not on file Not o n file Obstetrics History Last Filed Vital Signs Vital Sign Reading Time Taken Comments Blood Pressure 163/63 11/24/2024 3:15 PM BUSINESS ADMINISTRATION PROFESSOR Pulse 66 11/24/2024 3:15 PM BUSINESS ADMINISTRATION PROFESSOR Temperature 36.6 C (97.9 F) 11/24/2024 3:15 PM BUSINESS ADMINISTRATION PROFESSOR Respiratory Rate 18 01/19/2024 11:00 AM CDT Oxygen Saturation 98% 11/24/2024 3:15 PM BUSINESS ADMINISTRATION PROFESSOR Inhaled Oxygen Concentration - - Weight 72.3 kg (159 lb 8 oz) 11/24/2024 3:15 PM BUSINESS ADMINISTRATION PROFESSOR Height 172.7 cm (5' 8 ) 11/24/2024 3:15 PM BUSINESS ADMINISTRATION PROFESSOR Body Mass Index 24.25 11/24/2024 3:15 PM BUSINESS ADMINISTRATION PROFESSOR Plan of Treatment Health Maintenance Due Date [...] history exists Medical Devices Implanted Type Area Support Representative Device Identifier Shelf Expiration Date Model / Serial / Lot Cardiac Stent Stent Heart [employer] Simplex P Radiopaque Full Dose Cement Bone Sterile 6191-1-010 - [id number] Implanted:Qty: 2 on 01/18/2024 by Sathish Hager MD at [facility] Left: Knee [employer] 02/15/2026 6191-1-010 / / [id number] [employer] Persona Cruciate Retain Cemented Knee Left 8 Standard Component [id number] - [id number] Implanted:Qty: 1 on 01/18/2024 by Sathish Hager MD at [facility] Left: Knee [employer] [id number] 04/26/2033 [id number] / / [id number] [employer] Baseplate Tibial Knee Cemented Left Fixed Stemmed Persona Size E Tivanium [id number] - [id number] Implanted:Qty: 1 on 01/18/2024 by Sathish Hager MD at [facility] Left: Knee [employer] [id number] 10/30/2033 [id number] / / [id number] [employer] Persona 11mm Knee Left 8-11 E-F Insert Articular Vivacit-E [id number] - [id number] Implanted:Qty: 1 on 01/18/2024 by Sathish Hager MD at [facility] Left: Knee [employer] [id number] 09/16/2028 [id number] / / [id number] Procedures Procedure Name Priority Date/Time Associated Diagnosis Comments US KIDNEY COMPLETE Schedule Routine, Read Routine (OP Routine) 11/28/2024 5:05 PM BUSINESS ADMINISTRATION PROFESSOR Abnormal results of kidney function studies from Last 3 Months Results * US Kidney Complete (11/28/2024 5:05 PM BUSINESS ADMINISTRATION PROFESSOR) Anatomical Region Laterality Modality Kidney N/A Ultrasound 11/30/2024 2:48 PM BUSINESS ADMINISTRATION PROFESSOR Narrative 11/30/2024 2:51 PM BUSINESS ADMINISTRATION PROFESSOR EXAM DESCRIPTION: US KIDNEY COMPLETE REASON FOR [...] Arvin Fernando M.D. KT T: Report ID: [id number] Reading Location: [id number] Procedure Note Arvin Fernando MD - 11/30/2024 [...] Arvin Fernando M.D. KT T: Report ID: [id number] Reading Location: [id number] Pernell Jalloh MD [facility] PROCEDURES Final Resu lt from Last 3 Months Insurance MEDICARE [facility] MEDICARE [facility] MEDICARE [facility] Advance Directives For more information, please contact: [phone] Documents on File Type Date Recorded Patient Dining Room Hostess Expl anation ADVANCE DIRECTIVE 01/20/2024 12:44 PM Power of Advanced Practice Provider-Medical * Full Code (Latest Code Status on File) Date Activated Date Inactivated Comments 01/18/2024 7:22 PM 01/19/2024 7:50 PM Care Teams Hide And Skin Fleshing Machine Operator Relationship Specialty Start Date End Date Pernell Jalloh MD [address] [place] [address] PCP - General Internal Medicine 11/23/24 Rogelio Huerta DO [address] [place] [address] Family Medicine 01/09/23
--- OUTSIDE RECORDS SUMMARY | 2024-12-04 23:56 | XMS_ITS | Encounter Summary ---
Author Organization [facility] Facility Care Team Providers Care Developing Machine Operator Name Role Phone Magaly Desai NP Primary Care Provider + [phone] Nunu Yo MD Primary Care Provider [phone] Magaly Desai INTERNAL COMMUNICATIONS MANAGER Primary Care Provider + [phone] Sukhjinder Plunkett DO Primary Care Provider + [phone] Rogelio Huerta DO Unavailable [phone] Hector Marsh MD Primary Care Provider [phone] Tao Carver MD Primary Care Provider + Jarod Miller MD Unavailable [phone] Pernell Jalloh MD Primary Care Provider [phone] Encounter Details Date Type Department Care Team (Latest Contact Info) Description 03/21/2016 Orders Only MMG CLINCONV Provider, MD Travis [address] [place] [address] Social History Tobacco Use Types Packs/Day Years Used Date Smoking Tobacco: Never Assessed Sex and Gender Information Value Date Recorded Sex Assigned at Not on file Legal Sex Male 8:15 AM GLASS DRILLER Gender Identity Male 05/31/2024 10:17 AM CDT [...] on filedocumented in this encounter Care Teams Developing Machine Operator Relationship Specialty Start Date End Date Magaly Desai NP PCP - General Nurse Practitioner 01/08/19 01/12/19 Nunu Yo MD [address] [address] PCP - General 01/13/19 07/01/20 Magaly Desai NP [address] [address] PCP - General 07/02/20 05/11/22 Sukhjinder Plunkett DO [address] [address] PCP - General Family Medicine 05/12/22 01/26/23 Hector Marsh MD [address] [place] [address] PCP - General Orthopedic Surgery 01/27/23 08/13/23 Tao Carver MD [address] [address] PCP - General Internal Medicine 08/14/23 11/22/24 Pernell Jalloh MD [address] [place] [address] PCP - General Internal Medicine 11/23/24 Rogelio Huerta DO [address] [place] [address] Family Medicine 01/09/23 Jarod Miller MD [address] [address] Referring Physician Cardiovascular Disease 01/05/2411/22/24 documented as of this encounter
--- OUTSIDE RECORDS SUMMARY | 2024-12-04 23:56 | XMS_ITS | Referral Summary ---
Author Organization [facility] at [facility] Address [address] [place] [address] Care Team Providers Care Crew Boat Operator Name Role Phone Rogelio Huerta DO Unavailable Pernell Jalloh MD Primary Care Provider Encounters Date Type Department Care Team Description 11/28/2024 4:28 PM EXPERIMENTAL PLASTICS FABRICATOR - 11/28/2024 11:59 PM EXPERIMENTAL PLASTICS FABRICATOR Hospital Encounter [address] [address] Abnormal results of kidney function studies Discharge Disposition: Discharge to home or self care 11/24/2024 3:15 PM EXPERIMENTAL PLASTICS FABRICATOR Office Visit [facility] [address] [place] [address] 6th [address] [place] [address] Shayla Craven NP Alzheimer's disease [...] daily Assessment & Plan (11/24/2024 4:37 PM EXPERIMENTAL PLASTICS FABRICATOR): onset 2020 - Mini Mental State Exam [...] carbohydrate diet. Coronary artery disease invo lving [place] coronary artery of [place] heart without angina pectoris 01/28/2019 Assessment & [...] drink = 0.6 oz pur e alcohol) [facility] [employer] Answer Date Recorded In the past 12 months has [employer] electric, gas, oil, or water [employer] threatened to shut off services in your [...] often do you attend chur ch or zoroastrian services? Never 01/19/2024 Do you belong to any clubs o r organizations such as zoroastrian groups, unions, fraternal or athletic groups, or [...] place to sleep or slept in a chcf (including now)? No 01/19/2024 Personal Safety Answer Date Recorded Have you ever been in or are you currently in a harmful physical or emotional relationship or is someone making you feel afraid or unsafe? Denies 01/18/2024 Sex and Gender Information Value Date Recorded Sex Assigned at Not on file Legal Sex Male 8:15 AM EXPERIMENTAL PLASTICS FABRICATOR Gender Identity Male 05/31/2024 10:17 AM CDT Sexual Orientation Not on file Occupation Industry Job Start Date Job End Date [employer] Estate Not on file Not on file Not o n file Last Filed Vital Signs Vital Sign Reading Time Taken Comments Blood Pressure 163/63 11/24/2024 3:15 PM EXPERIMENTAL PLASTICS FABRICATOR Pulse 66 11/24/2024 3:15 PM EXPERIMENTAL PLASTICS FABRICATOR Temperature 36.6 C (97.9 F) 11/24/2024 3:15 PM EXPERIMENTAL PLASTICS FABRICATOR Respiratory Rate 18 01/19/2024 11:00 AM CDT Oxygen Saturation 98% 11/24/2024 3:15 PM EXPERIMENTAL PLASTICS FABRICATOR Inhaled Oxygen Concentration - - Weight 72.3 kg (159 lb 8 oz) 11/24/2024 3:15 PM EXPERIMENTAL PLASTICS FABRICATOR Height 172.7 cm (5' 8 ) 11/24/2024 3:15 PM EXPERIMENTAL PLASTICS FABRICATOR Body Mass Index 24.25 11/24/2024 3:15 PM EXPERIMENTAL PLASTICS FABRICATOR Plan of Treatment Not on file Medical Devices Implanted Type Area Pipeline Dispatch Operator Device Identifier Shelf Expiration Date Model / Serial / Lot Cardiac Stent Stent Heart [employer] Simplex P Radiopaque Full Dose Cement Bone Sterile 6191-1-010 - [id number] Implanted:Qty: 2 on 01/18/2024 by Sathish Hager MD at [facility] Left: Knee [employer] 02/15/2026 6191-1-010 / / [id number] [employer] Persona Cruciate Retain Cemented Knee Left 8 Standard Component [id number] - [id number] Implanted:Qty: 1 on 01/18/2024 by Sathish Hager MD at [facility] Left: Knee [employer] [id number] 04/26/2033 [id number] / / [id number] [employer] Baseplate Tibial Knee Cemented Left Fixed Stemmed Persona Size E [employer] [id number] - [id number] Implanted:Qty: 1 on 01/18/2024 by Sathish Hager MD at [facility] Left: Knee [employer] [id number] 10/30/2033 [id number] / / [id number] [employer] Persona 11mm Knee Left 8-11 E-F Insert Articular Vivacit-E [id number] - [id number] Implanted:Qty: 1 on 01/18/2024 by Sathish Hager MD at [facility] Left: Knee [employer] [id number] 09/16/2028 [id number] / / [id number] Procedures Procedure Name Priority Date/Time Associated Diagnosis Comments US KIDNEY COMPLETE Schedule Routine, Read Routine (OP Routine) 11/28/2024 5:05 PM EXPERIMENTAL PLASTICS FABRICATOR Abnormal results of kidney function studies from Last 3 Months Results * US Kidney Complete (11/28/2024 5:05 PM EXPERIMENTAL PLASTICS FABRICATOR) Anatomical Region Laterality Modality Kidney N/A Ultrasound 11/30/2024 2:48 PM EXPERIMENTAL PLASTICS FABRICATOR Narrative 11/30/2024 2:51 PM EXPERIMENTAL PLASTICS FABRICATOR EXAM DESCRIPTION: US KIDNEY COMPLETE REASON FOR [...] Arvin Fernando M.D. KT T: Report ID: [id number] Reading Location: [id number] Procedure Note Arvin Fernando MD - 11/30/2024 [...] Arvin Fernando M.D. KT T: Report ID: [id number] Reading Location: [place] [address] Pernell Jalloh MD [facility] PROCEDURES Final Resu lt from Last [address] [facility] Sam Carcamo, ZOILA [address] [facility] [place] [place] [address] Advance Directives For more information, please contact: [phone] Documents on File Type Date Recorded Patient Worldwide Chief Creative Officer Expl anation ADVANCE DIRECTIVE 01/20/2024 12:44 PM Power of Unit Support Representative-Medical * Full Code (Latest Code Status on File) Date Activated Date Inactivated Comments 01/18/2024 7:22 PM 01/19/2024 7:50 PM Care Teams Crew Boat Operator Relationship Specialty Start Date End Date Pernell Jalloh MD [address] [place] [address] PCP - General Internal Medicine 11/23/24 Rogelio Huerta DO [address] [place] [address] Family Medicine 01/09/23
[2024-12-05 00:01] LABS: Alanine Aminotransferase 19 U/L (6-50); Albumin Level 4.2 g/dL (3.5-5.1); Alkaline Phosphatase 64 U/L (38-126); Anion Gap 12 mmol/L (4-12); Aspartate Amino Transferase 31 U/L (17-59); Bilirubin,Total 0.6 mg/dL (0.2-1.3); Blood Urea Nitrogen 33 mg/dL (9-20); Carbon Dioxide 26 mmol/L (22-30); Chloride 100 mmol/L (98-107); Estimated CRCL calculation 27 ml/min; Estimated Glomerular Filt Rate 36; Glucose 110 mg/dL (65-110); Phosphorus 3.8 mg/dL (2.5-4.5); Potassium 4.4 mmol/L (3.4-5.0); Sodium 138 mmol/L (137-145)
[2024-12-05] MEDS: ACETAMINOPHEN 500 MG TABLET 1000 MG PO (00:08)
[2024-12-05 00:15] VITALS: BP 140/63; PULSE 84; RESP 20; TEMP 37.7; O2SAT 96
[2024-12-05] MEDS: SODIUM CHLORIDE 0.9% IV 1,000 ML 999 ML IV CONT (00:37)
[2024-12-05] MEDS: OSELTAMIVIR PHOSPHATE 30 MG CAPSULE PO (01:42)
[2024-12-05 02:01] VITALS: BP 150/65; PULSE 77; RESP 19; O2SAT 98
[2024-12-05 02:02] VITALS: BP 150/65; PULSE 77; RESP 19; O2SAT 98
== END 2024-12-05 02:03 | disposition home or self-care (01) ==
PROVIDERS: Emergency Medicine; Emergency Provider Physician Assistant; PCP Internal Medicine
DX: J11.1 Influenza due to unidentified influenza virus with other respiratory manifestations (principal); Z20.822 Contact with and (suspected) exposure to COVID-19; F03.90 Unspecified dementia, unspecified severity, without behavioral disturbance, psychotic disturbance, mood disturbance, and anxiety
CPT/HCPCS: 36415; 71045; 80053; 81003; 83735; 84100; 85025; 87637; 96360; 99283; A9270; J7030

== ENCOUNTER 2024-12-05 12:51 | Inpatient (IN) | payer MEDICARE, OTHER, SELFPAY ==
[2024-12-05] VITALS (8 sets, daily range): BP systolic 158–180; BP diastolic 66–94; PULSE 74–91; RESP 18–23; TEMP 36.7–37.7; O2SAT 91–100; BMI 24.3
--- NOTE | ~2024-12-05 | CT_ITS ---
EXAMINATION: CT abdomen pelvis w con DATE: 12/05/2024 17:36 INDICATION: abdominal distension TECHNIQUE: Computed tomography (CT) of the abdomen and pelvis was performed with 100 mL Omnipaque-350 intravenous contrast. Automated exposure control and iterative reconstruction technique were employe d. The dose-length product was 418.99 mGy-cm. COMPARISON: X-ray chest, same date. FINDINGS: Lower thorax: Coronary artery calcifications. Bilateral lower lobe centrilobular nodular opacities. Liver: Normal. Biliary/Gallbladder: Gallbladder distention without inflammatory change. No bile duct dilation. Pancreas: Moderate atrophy. Spleen: Normal. Adrenals:No mass. Kidneys: Moderate bilateral hydronephrosis, without obstructing stone or lesion detected. No suspicio us mass. GI tract: Moderate distal esophageal and gastric wall edema. Small uncomplicated duodenal diverticulu m. No small or large bowel dilation. Normal appendix. Diverticulosis without diverticulitis. Mesentery/Peritoneum: No ascites, mass, or free air. Retroperitoneum: No mass. Atherosclerotic calcifications of intra-abdominal arterial vessels. Pelvis: Markedly distended urinary bladder, with mild wall thickening/stranding and trabeculation. Pr ostatomegaly with calcification. Soft Tissues: Small bilateral uncomplicated fat-containing inguinal hernias. Bones: No acute osseous finding. Bilateral hip osteoarthritis. Lumbar scoliosis with multilevel consuelo re degenerative disc disease. Multilevel bilateral neural foraminal narrowing secondary to degenerati ve changes. IMPRESSION: Dependent bilateral lower lobe pulmonary opacities may represent infection and/or aspiration. Moderate esophagitis/gastritis. Gallbladder hydrops, may be secondary to obstruction or fasting. Marked urinary bladder distention with mild wall thickening/inflammatory change and moderate bilatera l hydronephrosis. No obstructing stone or mass detected. Correlate with urinalysis and for history of urinary retention. Reviewed, dictated and finalized at location K. NICAL ILLUSTRATOR IMPRESSION: Dependent bilateral lower lobe pulmonary opacities may represent infection and/ or aspiration. Moderate esophagitis/gastritis. Gallbladder hydrops, may be secondary to obstruction or fasting. Marked urinary bladder distention with mild wall thickening/inflammatory change and moderate bilateral hydronephrosis. No obstructing stone or mass detected. Correlate with urinalysis and for history of urinary retention.
--- NOTE | ~2024-12-05 | XR_ITS ---
MODIFIED ESOPHAGRAM HISTORY: Pneumonia. Possible aspiration. TECHNIQUE: Modified barium esophagram was performed on 12/06/2024. I administered fluoroscopy and perf ormed the exam with speech pathologist. Patient was seated for lateral fluoroscopic imaging for guerrero stion of thin liquids, pudding, solids and quantified amounts, followed by thin liquids in uncontroll ed amounts. This was recorded on tape. A single fluoroscopic spot image was also recorded. The DAP fo r this procedure was 1.5 Gycm2. The amount of fluoroscopy time used during this procedure was 2.3 min utes. FINDINGS: Oral stage: Adequate function. Pharyngeal stage: Reduced tongue base retraction. There is minimal vallecular residue which clears wi th swallows. Single episode of laryngeal penetration without aspiration with thin liquids. Cervical/esophageal stage: Adequate function. IMPRESSION: Mild pharyngeal dysphagia with single episode of laryngeal penetration without aspiration with thin liquids. Please correlate with speech pathologist findings and specific feeding recommend ations. Reviewed, dictated and finalized at location A. H MINISTER IMPRESSION: Mild pharyngeal dysphagia with single episode of laryngeal penetrat ion without aspiration with thin liquids. Please correlate with speech patholo gist findings and specific feeding recommendations.
--- NOTE | ~2024-12-05 | XR_ITS ---
EXAMINATION: XR chest 2V DATE: 12/05/2024 13:36 INDICATION: Fall. TECHNIQUE: Frontal and lateral views of the chest were obtained on 4 radiographs. COMPARISON: Chest single view 12/04/2024 FINDINGS: Calcified pulmonary nodules are consistent with old granulomatous disease. There is no pneu monia, pleural effusion, or pneumothorax. The heart size is normal. IMPRESSION: 1. No acute cardiopulmonary disease. Reviewed, dictated and finalized at location A. ECHNICAL OPERATING ENGINEER
--- NOTE | ~2024-12-05 | XR_ITS ---
EXAMINATION: XR chest 1V portable DATE: 12/11/2024 11:25 INDICATION: Coarse lung sounds. TECHNIQUE: A single frontal view of the chest was obtained on 2 radiographs. COMPARISON: Chest 2 views 12/05/2024, CT abdomen and pelvis 12/05/2024 FINDINGS: There are mild airspace opacities in the lower lung zones. No pleural effusion or pneumotho rax. The heart size is normal. IMPRESSION: 1. Mild airspace opacities in the lower lung zones, consistent with atelectasis versus pneumonia. Reviewed, dictated and finalized at location A. L DINING ROOM CASHIER
--- NOTE | ~2024-12-05 | US_ITS ---
EXAMINATION: US renal BI DATE: 12/06/2024 10:31 INDICATION: Bilateral hydronephrosis. TECHNIQUE: Multiple ultrasound grayscale images of the kidneys were obtained. COMPARISON: CT abdomen and pelvis 12/05/2024 FINDINGS: The right kidney measures 10.1 x 3.9 x 4.5 cm. The left kidney measures 12.2 x 5.4 x 5.1 cm. The kidn eys demonstrate normal parenchymal echogenicity. There is mild bilateral hydronephrosis. The bladder is decompressed by a Castellanos catheter. IMPRESSION: 1. Mild bilateral hydronephrosis with improvement status post Castellanos catheter placement. Reviewed, dictated and finalized at location A. FICIAL MARBLE WORKER IMPRESSION: 1. Mild bilateral hydronephrosis with improvement status post Castellanos catheter p yudith.
--- NOTE | ~2024-12-05 | CT_ITS ---
CT head without contrast Indication: Trauma Technique: Serial scans were obtained through the brain without the administration of contrast. Dose reduction technique was used on this scan by utilizing automated exposure control and iterative recon struction technique. The dose-length product (DLP) was 605.33 mGy-cm. Findings: There is no evidence of intracranial hemorrhage, mass lesion, or acute infarct. The ventri cles and subarachnoid spaces are dilated, consistent with mild to moderate atrophy. Low attenuation regions are seen within the periventricular white matter bilaterally, likely representing changes fro m chronic microvascular ischemic disease. There is no evidence of edema, mass effect or midline shif t. The visualized paranasal sinuses and mastoid air cells are clear. Impression: No intracranial hemorrhage, mass, or acute infarct. Atrophy and chronic white matter changes, as above. Reviewed, dictated and finalized at location M. RESCUE CRAFTSMAN Impression: No intracranial hemorrhage, mass, or acute infarct. Atrophy and chronic white matter changes, as above.
--- NOTE | ~2024-12-05 | US_ITS ---
EXAMINATION: US abdomen limited DATE: 12/06/2024 10:31 INDICATION: Elevated liver function tests TECHNIQUE: Multiple grayscale and Doppler ultrasound images of the abdomen were obtained. COMPARISON: 12/05/2024 FINDINGS: The pancreatic head and body are normal in appearance. The pancreatic tail is not visualized. Visual ized proximal to mid inferior vena cava is normal. Liver has normal echogenicity and contour, with a smooth surface. No liver lesion identified. No intrahepatic biliary duct dilation suspected. Portal v enous flow was seen in the hepatopetal, normal direction and has normal Doppler waveform. The gallbla dder is normal in appearance. There is no cholelithiasis. The common bile duct measures 4-5 mm, whic h is normal. Sonographic Talamantes sign was reported as negative by the art class model. IMPRESSION: 1. Normal right upper quadrant ultrasound. Reviewed, dictated and finalized at location A. RMINATION INSPECTOR
[2024-12-05] MEDS: SODIUM CHLORIDE 0.9% IV 1,000 ML 999 ML IV CONT (13:37)
--- NOTE | 2024-12-05 13:45 | ED.GENADULT ---
HPI - General Adult General Chief complaint: Fall Stated complaint: glf Time Seen by Provider: 12/05/24 12:53 History of Present Illness HPI narrative: Patient is a 79-year-old male with history of dementia who was found on the ground today. Recently diagnosed with influenza after being evaluated for weakness. Patient has no complaints. He is on a blood thinner and may have hit his head. Related Data Allergies Allergy/AdvReac Type Severity Reaction Status Date / Time No Known Allergies Allergy Verified 12/04/24 19:23 Review of Systems Review of Systems: ROS unobtainable: Yes unobtainable due to mental status PMFSH Past Medical History Medical History (Updated 12/05/24 @ 17:31 by Charly Minor MD) Hyperlipidemia Hypertension Dementia Exam Narrative: GENERAL: Well-appearing, well-nourished, and in no acute distress. HEAD: Normocephalic, atraumatic. EYES: PERRL and EOMI. ENT: Mucous membranes moist. CHEST: Clear to auscultation. No respiratory distress. HEART: Regular rate and rhythm. Normal peripheral pulses. ABDOMEN: Soft, nontender, mildly distended right abdomen that is tympanic. EXTREMITIES: Normal range of motion. No edema. SKIN: Warm, dry, no rash. NEURO: Alert and oriented x2. PSYCH: Normal mood and affect. Course Course Emergency Course: Patient resting comfortably. No elevation creatinine. Mild bump in transaminases. Will add on a CK level. Will start some hydration. Concerned he may have some mild rhabdomyolysis from falling. Accepted by hospitalist service. Vital Signs Vital signs: Vital Signs Temperature 98.6 F 12/05/24 12:54 Pulse Rate 82 12/05/24 12:54 Respiratory Rate 18 12/05/24 12:54 Blood Pressure 167/83 H 12/05/24 12:54 Pulse Oximetry 94 12/05/24 12:54 Oxygen Delivery Room Air 12/05/24 12:54 Temperature 98.6 F 12/05/24 15:16 Pulse Rate 88 12/05/24 15:16 Respiratory Rate 20 12/05/24 15:16 Blood Pressure 163/94 H 12/05/24 15:16 Pulse Oximetry 95 12/05/24 15:16 Oxygen Delivery Room Air 12/05/24 12:54 Medical Decision Making Vital Signs Vital Signs: Vital Signs Temperature 98.6 F 12/05/24 12:54 Pulse Rate 82 12/05/24 12:54 Respiratory Rate 18 12/05/24 12:54 Blood Pressure 167/83 H 12/05/24 12:54 Pulse Oximetry 94 12/05/24 12:54 Oxygen Delivery Room Air 12/05/24 12:54 Temperature 98.6 F 12/05/24 15:16 Pulse Rate 88 12/05/24 15:16 Respiratory Rate 20 12/05/24 15:16 Blood Pressure 163/94 H 12/05/24 15:16 Pulse Oximetry 95 12/05/24 15:16 Oxygen Delivery Room Air 12/05/24 12:54 Lab Data 12/05/24 13:35 12/05/24 13:35 Labs: Lab Results 12/05/24 Range/Units 13:35 WBC 19.3 H (4.5-10.0) K/mm3 RBC 3.65 L (4.6-6.20) M/mm3 Hgb 11.4 L (14.0-18.0) g/dL Hct 35.8 L (42.0-52.0) % MCV 98.1 (80-100) fl MCH 31.2 (26-34) pg MCHC 31.8 L (32-36) g/dl RDW 13.4 (11.5-14.5) % Plt Count 244 (150-375) k/mm3 MPV 10.4 (7.4-10.4) fl Immature Gran % (Auto) 0.5 (0-0.5) % Neut % (Auto) 91.3 H (45.5-73.1) % Lymph % (Auto) 2.8 L (18.3-44.2) % Edwards % (Auto) 5.1 (2.6-8.5) % Eos % (Auto) 0.0 (0-4.4) % Baso % (Auto) 0.3 (0.2-1.2) % Lymph # (Auto) 0.55 L (0.9-3.2) K/mm3 Edwards # (Auto) 1.0 H (0.1-0.6) K/mm3 Eos # (Auto) 0.0 (0-0.3) K/mm3 Baso # (Auto) 0.1 (0.0-0.1) K/mm3 Abs Immat Gran (auto) 0.10 H (0.00-0.031) K/mm3 Absolute Neuts (auto) 17.6 H (1.3-6.7) K/mm3 Absolute Nucleated RBC 0.000 (0.0-0.012) K/mm3 Nucleated RBC % 0.0 (0.0-0.2) % Sodium 140 (137-145) mmol/L Potassium 4.1 (3.4-5.0) mmol/L Chloride 103 (98-107) mmol/L Carbon Dioxide 21 L (22-30) mmol/L Anion Gap 16 H (4-12) mmol/L BUN 34 H (9-20) mg/dL Creatinine 1.80 H (0.7-1.3) mg/dL Estim Creat Clear Calc 29 ml/min Estimated GFR 37 L (59 - ) Glucose 123 H (65-110) mg/dL Calcium 9.0 (8.4-10.2) mg/dL Total Bilirubin 0.7 (0.2-1.3) mg/dL AST 174 H (17-59) U/L ALT 51 H (6-50) U/L Alkaline Phosphatase 70 (38-126) U/L Total Creatine Kinase 9803 H (55-170) U/L Total Protein 7.0 (6.3-8.2) g/dL Albumin 4.0 (3.5-5.1) g/dL Imaging Data Radiologist's impression: ITS Impressions Head CT 12/05/24 13:23 Impression: No intracranial hemorrhage, mass, or acute infarct. Atrophy and chronic white matter changes, as above. Chest X-Ray 12/05/24 13:44 IMPRESSION: 1. No acute cardiopulmonary disease. Discharge Plan Discharge Clinical Impression: Influenza, Weakness, Rhabdomyolysis Patient Disposition: Still a Patient Condition: Stable Patient Language: Guatemalan Prescriptions: No Action oseltamivir [Tamiflu] 30 mg capsule 30 mg PO DAILY 5 Days Qty: 5 0RF Follow-up/Referrals: Shubham,MD Pernell [Primary Care Provider] -
[2024-12-05 13:48] LABS: Basophils Absolute Auto 0.1 K/mm3 (0.0-0.1); Basophils Percent Auto 0.3 % (0.2-1.2); Hematocrit 35.8 % (42.0-52.0); Hemoglobin 11.4 g/dL (14.0-18.0); Immature Granulocyte Percent A 0.5 % (0-0.5); Lymphocytes Absolute Auto 0.55 K/mm3 (0.9-3.2); Lymphocytes Percent Auto 2.8 % (18.3-44.2); Mean Corpuscular HGB Conc 31.8 g/dl (32-36); Mean Corpuscular Hemoglobin 31.2 pg (26-34); Mean Corpuscular Volume 98.1 fl (80-100); Mean Platelet Volume 10.4 fl (7.4-10.4); Monocytes Percent Auto 5.1 % (2.6-8.5); Neutrophils Absolute Auto 17.6 K/mm3 (1.3-6.7); Neutrophils Percent Auto 91.3 % (45.5-73.1); Platelet Count Result 244 k/mm3 (150-375); Red Blood Count 3.65 M/mm3 (4.6-6.20); Red Cell Distribution Width 13.4 % (11.5-14.5); White Blood Count 19.3 K/mm3 (4.5-10.0)
[2024-12-05 13:58] LABS: Alanine Aminotransferase 51 U/L (6-50); Alkaline Phosphatase 70 U/L (38-126); Anion Gap 16 mmol/L (4-12); Aspartate Amino Transferase 174 U/L (17-59); Bilirubin,Total 0.7 mg/dL (0.2-1.3); Blood Urea Nitrogen 34 mg/dL (9-20); Carbon Dioxide 21 mmol/L (22-30); Chloride 103 mmol/L (98-107); Estimated CRCL calculation 29 ml/min; Estimated Glomerular Filt Rate 37; Glucose 123 mg/dL (65-110); Potassium 4.1 mmol/L (3.4-5.0); Sodium 140 mmol/L (137-145)
--- OUTSIDE RECORDS SUMMARY | 2024-12-05 15:35 | XMS_ITS | Encounter Summary ---
Author Organization [facility] Facility Care Team Providers Care Reserve Operator Name Role Phone Magaly Desai NP Primary Care Provider + [phone] Nunu Yo MD Primary Care Provider [phone] Magaly Desai CRANE CHASER Primary Care Provider + [phone] Sukhjinder Plunkett DO Primary Care Provider + [phone] Rogelio Huerta DO Unavailable [phone] Hector Marsh MD Primary Care Provider [phone] Tao Carver MD Primary Care Provider + Jarod Miller MD Unavailable [phone] Pernell Jalloh MD Primary Care Provider +[phone] Encounter Details Date Type Department Care Team (Latest Contact Info) Description 04/08/2016 Orders Only MMG CLINCONV Provider, MD Travis [address] [place] [address] Social History Tobacco Use Types Packs/Day Years Used Date Smoking Tobacco: Never Assessed Sex and Gender Information Value Date Recorded Sex Assigned at Not on file Legal Sex Male 8:15 AM BILL PEDDLER Gender Identity Male 05/31/2024 10:17 AM CDT [...] on filedocumented in this encounter Care Teams Reserve Operator Relationship Specialty Start Date End Date Magaly Desai NP PCP - General Nurse Practitioner 01/08/19 01/12/19 Nunu Yo MD [address] [address] PCP - General 01/13/19 07/01/20 Magaly Desai NP [address] [address] PCP - General 07/02/20 05/11/22 Sukhjinder Plunkett DO [address] [address] PCP - General Family Medicine 05/12/22 01/26/23 Hector Marsh MD [address] [place] [address] PCP - General Orthopedic Surgery 01/27/23 08/13/23 Tao Carver MD [address] [address] PCP - General Internal Medicine 08/14/23 11/22/24 Pernell Jalloh MD [address] [place] [address] PCP - General Internal Medicine 11/23/24 Rogelio Huerta DO [address] [place] [address] Family Medicine 01/09/23 Jarod Miller MD [address] [address] Referring Physician Cardiovascular Disease 01/05/2411/22/24 documented as of this encounter
--- OUTSIDE RECORDS SUMMARY | 2024-12-05 15:35 | XMS_ITS | Referral Summary ---
Author Organization [facility] at [facility] Address [address] [place] [address] Care Team Providers Care Commander Police Reserves Name Role Phone Roeglio Huerta DO Unavailable [phone] Pernell Jalloh MD Primary Care Provider Encounters Date Type Department Care Team Description 11/28/2024 4:28 PM ULTRASOUND TECHNOLOGIST SONOGRAPHER - 11/28/2024 11:59 PM ULTRASOUND TECHNOLOGIST SONOGRAPHER Hospital Encounter [address] [address] Abnormal results of kidney function studies Discharge Disposition: Discharge to home or self care 11/24/2024 3:15 PM ULTRASOUND TECHNOLOGIST SONOGRAPHER Office Visit [facility] [address] [place] [address] 6th [address] [place] [address] Shayla Craven NP Alzheimer's disease [...] daily Assessment & Plan (11/24/2024 4:37 PM ULTRASOUND TECHNOLOGIST SONOGRAPHER): onset 2020 - Mini Mental State Exam [...] carbohydrate diet. 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 Never 01/19/2024 Do you belong to any clubs o r organizations such as synagogue groups, unions, fraternal or athletic groups, or [...] place to sleep or slept in a retirement (including now)? No 01/19/2024 Personal Safety Answer Date Recorded Have you ever been in or are you currently in a harmful physical or emotional relationship or is someone making you feel afraid or unsafe? 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[employer] Estate Not on file Not on file Not o n file Last Filed Vital Signs Vital Sign Reading Time Taken Comments Blood Pressure 163/63 11/24/2024 3:15 PM ULTRASOUND TECHNOLOGIST SONOGRAPHER Pulse 66 11/24/2024 3:15 PM ULTRASOUND TECHNOLOGIST SONOGRAPHER Temperature 36.6 C (97.9 F) 11/24/2024 3:15 PM ULTRASOUND TECHNOLOGIST SONOGRAPHER Respiratory Rate 18 01/19/2024 11:00 AM CDT Oxygen Saturation 98% 11/24/2024 3:15 PM ULTRASOUND TECHNOLOGIST SONOGRAPHER Inhaled Oxygen Concentration - - Weight 72.3 kg (159 lb 8 oz) 11/24/2024 3:15 PM ULTRASOUND TECHNOLOGIST SONOGRAPHER Height 172.7 cm (5' 8 ) 11/24/2024 3:15 PM ULTRASOUND TECHNOLOGIST SONOGRAPHER Body Mass Index 24.25 11/24/2024 3:15 PM ULTRASOUND TECHNOLOGIST SONOGRAPHER Plan of Treatment Not on file Medical Devices Implanted Type Area Corporate Intern Device Identifier Shelf Expiration Date Model / Serial / Lot Cardiac Stent Stent Heart [employer] Simplex P Radiopaque Full Dose Cement Bone Sterile 6191-1-010 - [id number] Implanted:Qty: 2 on 01/18/2024 by Sathish Hager MD at [facility] Left: Knee [employer] 02/15/2026 6191-1-010 / / [id number] [employer] Persona Cruciate Retain Cemented Knee Left 8 Standard Component [id number] - [id number] Implanted:Qty: 1 on 01/18/2024 by Sathish Hager MD at [facility] Left: Knee [employer] [id number] 04/26/2033 [id number] / / [id number] [employer] Baseplate Tibial Knee Cemented Left Fixed Stemmed Persona Size E Tivanium [id number] - [id number] Implanted:Qty: 1 on 01/18/2024 by Sathish Hager MD at [facility] Left: Knee [employer] [id number] 10/30/2033 [id number] / / [id number] [employer] Persona 11mm Knee Left 8-11 E-F Insert Articular Vivacit-E [id number] - [id number] Implanted:Qty: 1 on 01/18/2024 by Sathish Hager MD at [facility] Left: Knee [employer] [id number] 09/16/2028 [id number] / / [id number] Procedures Procedure Name Priority Date/Time Associated Diagnosis Comments US KIDNEY COMPLETE Schedule Routine, Read Routine (OP Routine) 11/28/2024 5:05 PM ULTRASOUND TECHNOLOGIST SONOGRAPHER Abnormal results of kidney function studies from Last 3 Months Results * US Kidney Complete (11/28/2024 5:05 PM ULTRASOUND TECHNOLOGIST SONOGRAPHER) Anatomical Region Laterality Modality Kidney N/A Ultrasound 11/30/2024 2:48 PM ULTRASOUND TECHNOLOGIST SONOGRAPHER Narrative 11/30/2024 2:51 PM ULTRASOUND TECHNOLOGIST SONOGRAPHER EXAM DESCRIPTION: US KIDNEY COMPLETE REASON FOR [...] Arvin Fernando M.D. KT T: Report ID: [id number] Reading Location: [id number] Procedure Note Arvin Fernando MD - 11/30/2024 [...] Arvin Fernando M.D. KT T: Report ID: [id number] Reading Location: [place] [address] Pernell Jalloh MD [facility] PROCEDURES Final Resu lt from Last 3 Months Insurance MEDICARE [facility] Address: [address] [address] [place] [address] [facility] Sam Carcamo, [place] [address] [facility] [place] [address] Advance Directives For more information, please contact: [phone] Documents on File Type Date Recorded Patient Store Deli Manager Expl anation ADVANCE DIRECTIVE 01/20/2024 12:44 PM Power of Placement Officer-Medical * Full Code (Latest Code Status on File) Date Activated Date Inactivated Comments 01/18/2024 7:22 PM 01/19/2024 7:50 PM Care Teams Commander Police Reserves Relationship Specialty Start Date End Date Pernell Jalloh MD [address] [place] [address] PCP - General Internal Medicine 11/23/24 Rogelio Huerta DO [address] [place] [place] [address] Family Medicine 01/09/23
--- OUTSIDE RECORDS SUMMARY | 2024-12-05 15:35 | XMS_ITS | Encounter Summary ---
Author Organization [facility] Facility Care Team Providers Care Operating Room Manager Name Role Phone Magaly Desai NP Primary Care Provider + [phone] Nunu Yo MD Primary Care Provider [phone] Magaly Desai POWER AND RECOVERY SUPERINTENDENT Primary Care Provider + [phone] Sukhjinder Plunkett DO Primary Care Provider + [phone] Rogelio Huerta DO Unavailable [phone] Hector Marsh MD Primary Care Provider [phone] Tao Carver MD Primary Care Provider + Jarod Miller MD Unavailable [phone] Pernell Jalloh MD Primary Care Provider [phone] Encounter Details Date Type Department Care Team (Latest Contact Info) Description 12/09/2018 Orders Only MMG CLINCONV Provider, MD Travis [address] [place] [address] Social History Tobacco Use Types Packs/Day Years Used Date Smoking Tobacco: Former Sex and Gender Information Value Date Recorded Sex Assigned at Not on file Legal Sex Male 8:15 AM CONTACT LENS LATHE OPERATOR Gender Identity Male 05/31/2024 10:17 AM CDT Sexual Orientation Not on file documented as of this encounter Plan of Treatment Not on file documented as of this encounter Procedures Procedure Name Priority Date/Time Associated Diagnosis Comments CARDIOLOGY REPORT 12/16/2018 12: 00 AM CONTACT LENS LATHE OPERATOR documented in this encounter Results * CARDIOLOGY REPORT (12/16/2018 12:00 AM CONTACT LENS LATHE OPERATOR) Anatomical Region Laterality Modality Other Narrative 12/16/2018 12:00 AM CONTACT LENS LATHE OPERATOR Ordered by an unspecified provider. us Historical Provider [facility] JERAD VELAZQUEZ Final Result documented in this encounter Visit Diagnoses Not on filedocumented in this encounter Care Teams Operating Room Manager Relationship Specialty Start Date End Date Magaly Desai NP PCP - General Nurse Practitioner 01/08/19 01/12/19 Nunu Yo MD [address] [address] PCP - General 01/13/19 07/01/20 Mgaaly Desai NP [address] [address] PCP - General 07/02/20 05/11/22 Sukhjinder Plunkett DO [address] [address] PCP - General Family Medicine 05/12/22 01/26/23 Hector Marsh MD [address] [place] [address] PCP - General Orthopedic Surgery 01/27/23 08/13/23 Toa Carver MD [address] [address] PCP - General Internal Medicine 08/14/23 11/22/24 Pernell Jalloh MD [address] [place] [address] PCP - General Internal Medicine 11/23/24 oRgelio Huerta DO [address] [place] [address] Family Medicine 01/09/23 Jarod Miller MD [address] [address] Referring Physician Cardiovascular Disease 01/05/2411/22/24 documented as of this encounter
--- OUTSIDE RECORDS SUMMARY | 2024-12-05 15:35 | XMS_ITS | Encounter Summary ---
Author Organization [facility] Facility Care Team Providers Care Optical Laboratory Technician Name Role Phone Magaly Desai NP Primary Care Provider + [phone] Nunu Yo MD Primary Care Provider [phone] Magaly Desai RECORD TABULATING CLERK Primary Care Provider + [phone] Sukhjinder Plunkett DO Primary Care Provider + [phone] Rogelio Huerta DO Unavailable [phone] Hector Marsh MD Primary Care Provider [phone] Tao Carver MD Primary Care Provider + Jarod Miller MD Unavailable [phone] Pernell Jalloh MD Primary Care Provider [phone] Encounter Details Date Type Department Care Team (Latest Contact Info) Description 03/21/2016 Orders Only MMG CLINCONV Provider, MD Travis [address] [place] [address] Social History Tobacco Use Types Packs/Day Years Used Date Smoking Tobacco: Never Assessed Sex and Gender Information Value Date Recorded Sex Assigned at Not on file Legal Sex Male 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 Gender Identity Male 05/31/2024 10:17 AM CDT [...] on filedocumented in this encounter Care Teams Optical Laboratory Technician Relationship Specialty Start Date End Date Magaly Desai NP PCP - General Nurse Practitioner 01/08/19 01/12/19 Nunu Yo MD [address] [address] PCP - General 01/13/19 07/01/20 Magaly Desai NP [address] [address] PCP - General 07/02/20 05/11/22 Sukhjinder Plunkett DO [address] [address] PCP - General Family Medicine 05/12/22 01/26/23 Hector Marsh MD [address] [place] [address] PCP - General Orthopedic Surgery 01/27/23 08/13/23 Tao Carver MD [address] [address] PCP - General Internal Medicine 08/14/23 11/22/24 Pernell Jalloh MD [address] [place] [address] PCP - General Internal Medicine 11/23/24 Rogelio Huerta DO [address] [place] [address] Family Medicine 01/09/23 Jarod Miller MD [address] [address] Referring Physician Cardiovascular Disease 01/05/2411/22/24 documented as of this encounter
--- OUTSIDE RECORDS SUMMARY | 2024-12-05 15:35 | XMS_ITS | Encounter Summary ---
Author Organization [facility] Facility Care Team Providers Care Veterinary Physiologist Name Role Phone Magaly Desai NP Primary Care Provider + [phone] Nunu Yo MD Primary Care Provider [phone] Magaly Desai EXAMINING OFFICER Primary Care Provider + [phone] Sukhjinder Plunkett DO Primary Care Provider + [phone] Rogelio Huerta DO Unavailable [phone] Hector Marsh MD Primary Care Provider [phone] Tao Carver MD Primary Care Provider + Jarod Miller MD Unavailable [phone] Pernell Jalloh MD Primary Care Provider +[phone] Encounter Details Date Type Department Care Team (Latest Contact Info) Description 08/05/2016 Orders Only MMG CLINCONV Provider, MD Travis [address] [place] [address] Social History Tobacco Use Types Packs/Day Years Used Date Smoking Tobacco: Former Sex and Gender Information Value Date Recorded Sex Assigned at Not on file Legal Sex Male 8: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 Gender Identity Male 05/31/2024 10:17 AM CDT [...] on filedocumented in this encounter Care Teams Veterinary Physiologist Relationship Specialty Start Date End Date Magaly Desai, LATRICE PCP - General Nurse Practitioner 01/08/19 01/12/19 Nunu Yo MD [address] [address] PCP - General 01/13/19 07/01/20 Magaly Desai NP [address] [address] PCP - General 07/02/20 05/11/22 Sukhjinder Plunkett DO [address] [address] PCP - General Family Medicine 05/12/22 01/26/23 Hector Marsh MD [address] [place] [address] PCP - General Orthopedic Surgery 01/27/23 08/13/23 Tao Carver MD [address] [address] PCP - General Internal Medicine 08/14/23 11/22/24 Pernell Jalloh MD [address] [place] [address] PCP - General Internal Medicine 11/23/24 Rogelio Huerta DO [address] [place] [address] Family Medicine 01/09/23 Jarod Miller MD [address] [address] Referring Physician Cardiovascular Disease 01/05/2411/22/24 documented as of this encounter
--- OUTSIDE RECORDS SUMMARY | 2024-12-05 15:35 | XMS_ITS | Clinical Summary ---
Author Organization [facility] at [facility] Address [address] [place] [address] Care Team Providers Care Chimney Mechanic Name Role Phone BradleyRogelio DO Unavailable [phone] Pernell Jalloh MD Primary Care Provider + [phone] Allergies Active Allergy Reactions Criticality Noted Date [...] daily Assessment & Plan (11/24/2024 4:37 PM ATTIC FANS MECHANIC): onset 2020 - Mini Mental State Exam [...] carbohydrate diet. Coronary artery disease invo lving prairie band coronary artery of pra[place] heart without angina pectoris 01/28/2019 Assessment & Plan (06/05/2020 8:48 PM CDT): Therefore need to avoid oral nonsteroidal anti-inflammatories Pure hypercholesterolemia 01/28/2019 Essential hypertension 01/28/2019 Pain in shoulder 06/05/2016 Encounters Date Type Department Care Team Description 11/28/2024 4:28 PM ATTIC FANS MECHANIC - 11/28/2024 11:59 PM ATTIC FANS MECHANIC Hospital Encounter [address] [address] Abnormal results of kidney function studies Discharge Disposition: Discharge to home or self care 11/24/2024 3:15 PM ATTIC FANS MECHANIC Office Visit [address] 6th [address] [place] [address] Herber, Shayla Anand NP Alzheimer's [...] drink = 0.6 oz pur e alcohol) [facility] Utilities Answer Date Recorded In the past 12 months has [employer], oil, or water [employer] threatened to shut off services in your [...] often do you attend chur ch or muslim services? Never 01/19/2024 Do you belong to any clubs o r organizations such as quaker groups, unions, fraternal or athletic groups, or [...] place to sleep or slept in a snf (including now)? No 01/19/2024 Personal Safety Answer Date Recorded Have you ever been in or are you currently in a harmful physical or emotional relationship or is someone making you feel afraid or unsafe? 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 Not on file Not o n file Obstetrics History Last Filed Vital Signs Vital Sign Reading Time Taken Comments Blood Pressure 163/63 11/24/2024 3:15 PM ATTIC FANS MECHANIC Pulse 66 11/24/2024 3:15 PM ATTIC FANS MECHANIC Temperature 36.6 C (97.9 F) 11/24/2024 3:15 PM ATTIC FANS MECHANIC Respiratory Rate 18 01/19/2024 11:00 AM CDT Oxygen Saturation 98% 11/24/2024 3:15 PM ATTIC FANS MECHANIC Inhaled Oxygen Concentration - - Weight 72.3 kg (159 lb 8 oz) 11/24/2024 3:15 PM ATTIC FANS MECHANIC Height 172.7 cm (5' 8 ) 11/24/2024 3:15 PM ATTIC FANS MECHANIC Body Mass Index 24.25 11/24/2024 3:15 PM ATTIC FANS MECHANIC Plan of Treatment Health Maintenance Due Date [...] history exists Medical Devices Implanted Type Area Musician Instrumental Device Identifier Shelf Expiration Date Model / Serial / Lot Cardiac Stent Stent Heart [employer] Simplex P Radiopaque Full Dose Cement Bone Sterile 6191-1-010 - [id number] Implanted:Qty: 2 on 01/18/2024 by Sathish Hager MD at [facility] Left: Knee [employer] 02/15/2026 6191-1-010 / / [id number] [employer] Persona Cruciate Retain Cemented Knee Left 8 Standard Component [id number] - [id number] Implanted:Qty: 1 on 01/18/2024 by Sathish Hager MD at [facility] Left: Knee [employer] [id number] 04/26/2033 [id number] / / [id number] [employer] Baseplate Tibial Knee Cemented Left Fixed Stemmed Persona Size E [employer] [id number] - [id number] Implanted:Qty: 1 on 01/18/2024 by Sathish Hager MD at [facility] Left: Knee [employer] [id number] 10/30/2033 [id number] / / [id number] [employer] Persona 11mm Knee Left 8-11 E-F Insert Articular Vivacit-E [id number] - [id number] Implanted:Qty: 1 on 01/18/2024 by Sathish Hager MD at [facility] Left: Knee [employer] [id number] 09/16/2028 [id number] / / [id number] Procedures Procedure Name Priority Date/Time Associated Diagnosis Comments US KIDNEY COMPLETE Schedule Routine, Read Routine (OP Routine) 11/28/2024 5:05 PM ATTIC FANS MECHANIC Abnormal results of kidney function studies from Last 3 Months Results * US Kidney Complete (11/28/2024 5:05 PM ATTIC FANS MECHANIC) Anatomical Region Laterality Modality Kidney N/A Ultrasound 11/30/2024 2:48 PM ATTIC FANS MECHANIC Narrative 11/30/2024 2:51 PM ATTIC FANS MECHANIC EXAM DESCRIPTION: US KIDNEY COMPLETE REASON FOR [...] Arvin Fernando M.D. KT T: Report ID: [id number] Reading Location: [id number] Procedure Note Arvin Fernando MD - 11/30/2024 [...] Arvin Fernando M.D. KT T: Report ID: [id number] Reading Location: [id number] Pernell Jalloh MD [facility]ED[facility] Final Resu lt from Last 3 Months Insurance MEDICARE [facility] MEDICARE [facility] MEDICARE [facility] Advance Directives For more information, please contact: [phone] Documents on File Type Date Recorded Patient Box Sealing Machine Catcher Expl anation ADVANCE DIRECTIVE 01/20/2024 12:44 PM Power of Regeneration Operator-Medical * Full Code (Latest Code Status on File) Date Activated Date Inactivated Comments 01/18/2024 7:22 PM 01/19/2024 7:50 PM Care Teams Chimney Mechanic Relationship Specialty Start Date End Date Pernell Jalloh MD [address] [place] [address] PCP - General Internal Medicine 11/23/24 Rogelio Huerta DO [address] [place] [address] Family Medicine 01/09/23
--- OUTSIDE RECORDS SUMMARY | 2024-12-05 15:35 | XMS_ITS | Clinical Summary ---
Author Organization [facility] Address [address] [place] [address] Care Team Providers Care Director [employer] Name Role Phone Rogelio Huerta DO Primary [...] osteoarthritic changes. Coronary artery disease invo lving saxman coronary artery of saxman heart without angina pectoris 01/28/2019 Overview (07/22/2021): [...] MCG/ 0.5 ML DOSE 01/07/2021,11/29/2020 MODERNA COVID-19 ([employer] FACTORY WORKER YANNA ANTONIO), MRNA, LNP-S, PF, 50 MCG/ 0.25 ML DOSE 03/11/2022 Pneumococcal (Pneumovax 23) 10/19/2010 Pneumococcal (Prevnar 13) 06/04/2015 Shingrix 02/17/2019,12/09/2018 Td (TDVAX) 11/28/2003 Td (Tenivac) preservative free 11/28/2003 Tdap (Generic) 04/27/2015 Zoster (Zostavax) [address] Unt/0.65Ml 11/01/2011 Family History Medical History Relation [...] CDT Gender Identity Male 10/28/2021 9:47 AM FOREIGN FOOD SPECIALTY COOK Sexual Orientation Choose not to disclose 2021 4:58 AM CDT Last Filed Vital Signs Vital Sign Reading Time Taken Comments Blood Pressure 126/64 03/17/2023 9:39 AM CDT Pulse 62 03/17/2023 9:39 AM CDT Temperature 36.3 C (97.3 F) 03/17/2023 9:39 AM CDT Respiratory Rate 14 11/12/2022 1:36 PM FOREIGN FOOD SPECIALTY COOK Oxygen Saturation 99% 03/17/2023 9:39 AM CDT [...] - 1-dose 75+ series) 2020 PHQ-2 (Physician [place]) 03/17/2024 03/17/2023 COVID-19 Vaccine ( season) 2024 10/23/2022, 03/11/2022, 08/28/2021, Additional history exists Influenza Adult (#1) 2024 07/28/2022, 07/22/2021, 08/08/2020, Additional history exists PHQ-2 (Physician [place]) 10/19/2024 03/17/2023 DTaP, Tdap and Td Vaccines [...] Recently Relevant to Health Maintenance Insurance MEDICARE [facility] [employer] Care Teams Director [employer] Relationship Specialty Start Date End Date Rogelio Huerta DO [address] [place] [address] PCP - General FAMILY PRACTICE 10/21/22
--- NOTE | 2024-12-05 16:45 | P.HP_ITS ---
H&P: HPI History of Present Illness Date/Time: 12/05/24 16:45 Chief Complaint: Fall. Narrative: This is a 79-year-old male with dementia, hypertension, hyperlipidemia, and coronary artery disease who presented to the emergency department via EMS from home for evaluation after a fall. He is not a good historian due to his dementia and the majority of the following history is obtained from his . He has not been feeling well for a couple of days and was seen in the emergency department yesterday evening with complaints of weakness and fever to 102.5? F. He tested positive for influenza A and was feeling better after receiving acetaminophen and 1 L of normal saline. He was able to be discharged home and his reports that she last saw him at about 03:00 and he was in bed sleeping. At about 11:00 she went into his room to check on him and found him lying on his back on the floor. He was soiled with stool and she reports that he had diarrhea all over the bathroom as well. He was unable to tell her how he ended up on the ground or how long he had been on the ground. At the time my evaluation he reports that he feels weak but has no other complaints. He specifically denies headache, neck ache, chest pain, shortness of breath, abdominal pain (he was tender to palpation on the right side of the abdomen on exam), nausea, vomiting, diarrhea, dysuria, cough, and sore throat. In the ED: He was afebrile on arrival with a blood pressure of 167/83 and an SpO2 of 94% on room air. Labs were significant for WBC count 19.3, hemoglobin 11.4, carbon dioxide 21, anion gap 16, BUN 34, creatinine 1.80, glucose 123, AST 174, ALT 51, alkaline phosphatase 9803. Head CT and chest x-ray showed no acute findings. CT of the abdomen and pelvis showed dependent bilateral lower lobe pulmonary opacities which could be infection or aspiration, moderate esophagitis/gastritis, gallbladder hydrops, and marked urinary bladder distention and moderate bilateral hydronephrosis. Upon further questioning, the patient's reports that he frequently complains of difficulties urinating and in fact he had a recent renal ultrasound which did show the hydronephrosis. Castellanos catheter was inserted and yielded 800 mL immediately. Regarding possible aspiration imaging, the patient's has not noticed any coughing or choking with eating. Review of Systems Review of Systems: 12 systems were reviewed and are negativ e except for as per HPI. [facility] Past Medical History Medical History (Updated 12/05/24 @ 21:22 by Betty Herrera PA-C) Coronary artery disease Osteoarthritis Hyperlipidemia Hypertension Dementia Surgical History Surgical History (Updated 12/05/24 @ 21:18 by Betty Herrera PA-C) History of coronary artery stent placement History of arthroplasty of left knee Family History Family History Other Family history non-contributory Social History Social History (Updated 12/05/24 @ 21:19 by Betty Herrera PA-C) Social History: Surrogate medical decision maker: Debi Nelson, spouse ([phone]). Code status: Full code. Additional living arrangements comments: Lives with spouse in [place]. 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 Meds Home Medications and Allergies Home Medications ?Medication ?Instructions ?Recorded ?Confirmed ?Type oseltamivir 30 mg capsule (Tamiflu) 30 mg PO DAILY 5 days #5 caps 12/05/24 Rx Allergies Allergy/AdvReac Type Severity Reaction Status Date / Time No Known Allergies Allergy Verified 12/04/24 19:23 Vital Signs Vital Signs - 24 hr 12/05/24 12:54 12/05/24 15:05 12/05/24 15:06 Temperature 98.6 F Pulse Rate 82 78 81 Respiratory Rate 18 Blood Pressure 167/83 H 172/79 H 162/76 H Pulse Oximetry 94 Oxygen Delivery Room Air 12/05/24 15:07 12/05/24 15:16 Temperature 98.6 F Pulse Rate 91 88 Respiratory Rate 20 Blood Pressure 176/78 H 163/94 H Pulse Oximetry 95 Oxygen Delivery Exam Narrative: General: Mildly ill-appearing elderly gentleman supine in bed in no acute distress. Weight: 72.5 kg. BMI: 24.3. HEENT: Normocephalic, atraumatic. PERRL, EOMI. Sclera anicteric. Tacky mucous membranes. Neck: Supple. No JVD or lymphadenopathy. Respiratory: Respirations are nonlabored and lungs are clear to auscultation. Cardiovascular: Regular rate and rhythm with S1-S2. Gastrointestinal: Bladder is distended and he is tender to palpation and percussion in the right mid to lower quadrant. Negative Talamantes sign. Bowel sounds are present. No guarding or rebound tenderness. No CVA tenderness. Skin: Warm and dry. Skin tear on the right elbow and left hand. Extremities: No cyanosis, clubbing, or edema. Radial and pedal pulses intact. Neurological: Alert and oriented x2. He seems to have short-term memory loss and is not able to or provide an accurate history with regards to situation. Cranial nerves 2-12 are grossly intact. Speech is clear. No facial asymmetry. Generalized weakness without gross focal findings. Psychiatric: Pleasantly confused and cooperative. H&P: Results Labs Labs: Short CBC 12/05/24 Range/Units 13:35 WBC 19.3 H (4.5-10.0) K/mm3 Hgb 11.4 L (14.0-18.0) g/dL Hct 35.8 L (42.0-52.0) % Plt Count 244 (150-375) k/mm3 BMP 12/05/24 13:35 Sodium 140 Potassium 4.1 Chloride 103 Carbon Dioxide 21 L BUN 34 H Creatinine 1.80 H Glucose 123 H Calcium 9.0 Liver Function 12/05/24 Range/Units 13:35 Total Bilirubin 0.7 (0.2-1.3) mg/dL AST 174 H (17-59) U/L ALT 51 H (6-50) U/L Alkaline Phosphatase 70 (38-126) U/L Albumin 4.0 (3.5-5.1) g/dL Impressions Head CT 12/05/24 13:23 Impression: 1. No intracranial hemorrhage, mass, or acute infarct. 2. Atrophy and chronic white matter changes, as above. Chest X-Ray 12/05/24 13:44 IMPRESSION: 1. No acute cardiopulmonary disease. Abdomen/Pelvis CT 12/05/24 17:41 IMPRESSION: 1. Dependent bilateral lower lobe pulmonary opacities may represent infection and/or aspiration. 2. Moderate esophagitis/gastritis. 3. Gallbladder hydrops, may be secondary to obstruction or fasting. 4. Marked urinary bladder distention with mild wall thickening/inflammatory change and moderate bilateral hydronephrosis. No obstructing stone or mass detected. Correlate with urinalysis and for history of urinary retention. Assessment and Plan Assessment and plan (1) Unwitnessed fall: Code(s): R29.6 - Repeated falls Status: Acute (2) Rhabdomyolysis: Code(s): M62.82 - Rhabdomyolysis Status: Acute (3) Influenza: Code(s): J11.1 - Influenza due to unidentified influenza virus with other respiratory manifestations Status: Acute (4) Urinary retention: Code(s): R33.9 - Retention of urine, unspecified Status: Acute (5) Renal failure: Code(s): N19 - Unspecified kidney failure Status: Acute (6) Elevated LFTs: Code(s): R79.89 - Other specified abnormal findings of blood chemistry Status: Acute (7) Hypertension: Code(s): I10 - Essential (primary) hypertension Status: Acute (8) Coronary artery disease: Code(s): I25.10 - Atherosclerotic heart disease of three affiliated coronary artery without angina pectoris Status: Acute (9) Dementia: Code(s): F03.90 - Unspecified dementia, unspecified severity, without behavioral disturbance, psychotic disturbance, mood disturbance, and anxiety Status: Acute Plan The patient presented to the emergency department for evaluation after an unwitnessed fall as detailed in HPI. Labs, imaging, EKG, and all reports were personally reviewed. He tested positive for influenza a yesterday and is currently taking Tamiflu which will be continued. The patient is unable to say how he fell though presumably due to weakness. Initiate fall precautions; he will need PT/OT once feeling better. He was presumably on the ground a majority of the night as his total CK is greater than 9000. He has been started on IV fluid rehydration and CK will be trended. AST and ALT are elevated, likely due to rhabdomyolysis, though given right-sided tenderness on abdominal exam, and right upper quadrant ultrasound has been ordered. Bladder was markedly distended on exam and a Castellanos catheter has been placed for urinary retention. Renal ultrasound ordered for a.m. and if no significant improvement in the hydronephrosis, Urology consult would be prudent. Start tamsulosin. He has been started on antibiotics to cover for possible pneumonia seen on CT of the abdomen and pelvis. Swallow study ordered to rule out family on aspiration. Blood pressures were reviewed and they have been stable. He has no complaints of chest pain. CT scan shows findings of possible esophagitis/gastritis and he has been started on famotidine. His home medications will be reviewed and resumed as appropriate. Findings and treatment plan were discussed with the patient. Questions were solicited and answered to satisfaction. The patient's medical management will be taken over by the hospitalist team in a.m. Quality VTE Prophylaxis VTE prophylaxis: mechanical ordered If No VTE Prophylaxis Answer both mechanical and pharmacologic: Reason no pharmacologic proph: medical contraindication (fall risk) The patient has been admitted under observation status. Hospitalist [facility] Advance Care Plan I have confirmed that the patient's Advanced Care Plan is present, code status is documented, or surrogate decision maker is listed in patient medical record.: Yes Medication Reconciliation I have utilized all available resources to obtain, update and review the patients current medications (includes all prescriptions, OTC, herbals, cannabis, and nutritional supplements).: Yes
[2024-12-05 17:21] LABS: Creatine Kinase 9803 U/L (55-170)
[2024-12-05] MEDS: SODIUM CHLORIDE 0.9% IV 1,000 ML 125 ML IV CONT (17:59)
--- NOTE | 2024-12-05 22:21 | ADMGEN ---
This patient, Joseph Nelson, was admitted to [facility] Room 301-01. Patient/family oriented to hospital policies and general routines including ID bracelet, bed and alarms, visiting hours, pain management, procedures, bathroom and other care routines, personal items, smoking policy, room service/diet, and visiting hours. Information on how to activate the Rapid Response Team has been discussed. Patient/Family are encouraged to report perceived risks to care and to ask questions if they do not understand what they are told or what they should do.
[2024-12-05] MEDS: OSELTAMIVIR PHOSPHATE 30 MG CAPSULE PO (22:35)
[2024-12-05 23:27] LABS: MRSA (PCR) NOT DETECTED (NOT DETECTE)
[2024-12-06] MEDS: SODIUM CHLORIDE 0.9% IV 1,000 ML 125 ML IV CONT ×2 (02:26→10:17)
[2024-12-06 06:00] VITALS: BP 170/68; PULSE 67; RESP 18; TEMP 36.8; O2SAT 99
[2024-12-06 07:20] LABS: Hematocrit 31.3 % (42.0-52.0); Hemoglobin 9.8 g/dL (14.0-18.0); Mean Corpuscular HGB Conc 31.3 g/dl (32-36); Mean Corpuscular Hemoglobin 30.7 pg (26-34); Mean Corpuscular Volume 98.1 fl (80-100); Mean Platelet Volume 10.4 fl (7.4-10.4); Platelet Count Result 207 k/mm3 (150-375); Red Blood Count 3.19 M/mm3 (4.6-6.20); Red Cell Distribution Width 13.3 % (11.5-14.5); White Blood Count 13.7 K/mm3 (4.5-10.0)
[2024-12-06 07:50] LABS: Alanine Aminotransferase 96 U/L (6-50); Albumin Level 3.2 g/dL (3.5-5.1); Alkaline Phosphatase 55 U/L (38-126); Anion Gap 6 mmol/L (4-12); Aspartate Amino Transferase 344 U/L (17-59); Bilirubin,Total 0.5 mg/dL (0.2-1.3); Blood Urea Nitrogen 28 mg/dL (9-20); Calcium 8.7 mg/dL (8.4-10.2); Carbon Dioxide 26 mmol/L (22-30); Chloride 108 mmol/L (98-107); Estimated CRCL calculation 32 ml/min; Estimated Glomerular Filt Rate 40; Glucose 87 mg/dL (65-110); Magnesium 2.1 mg/dL (1.6-2.3); Potassium 4.3 mmol/L (3.4-5.0); Sodium 140 mmol/L (137-145)
[2024-12-06 08:00] VITALS: O2SAT 97
[2024-12-06 08:23] LABS: Creatine Kinase > 16000 U/L (55-170)
[2024-12-06 09:28] LABS: Phosphorus 4.1 mg/dL (2.5-4.5)
[2024-12-06] MEDS: cefTRIAXone 2 GM/NS 100 ML 2 GM/100 ML BAG IVPB (10:18)
[2024-12-06] MEDS: FAMOTIDINE 20 MG/2 ML VIAL IV PUSH ×2 (10:20→21:06)
[2024-12-06 10:46] VITALS: BMI 24.3
--- NOTE | 2024-12-06 11:06 | PM.IMPN ---
Progress Note: A&P Assessment and Plan (1) Unwitnessed fall: Code(s): R29.6 - Repeated falls Status: Acute Assessment and Plan: Up with assistance only. Bed alarm/ (2) Rhabdomyolysis: Code(s): M62.82 - Rhabdomyolysis Status: Acute Assessment and Plan: CK>16,000. NS@200 ml/hr. Bedrest. Monitor labs. (3) Influenza: Code(s): J11.1 - Influenza due to unidentified influenza virus with other respiratory manifestations Status: Acute Assessment and Plan: Oseltamivir 30 mg PO q 12. (4) Urinary retention: Code(s): R33.9 - Retention of urine, unspecified Status: Acute Assessment and Plan: wong in place. Tamsulosin 0.4 mg PO qam. (5) Renal failure: Code(s): N19 - Unspecified kidney failure Status: Acute Assessment and Plan: creatinine 1.66. Renal ultrasound showed: Mild bilateral hydronephrosis with improvement status post Wong catheter placement. (6) Elevated LFTs: Code(s): R79.89 - Other specified abnormal findings of blood chemistry Status: Acute Assessment and Plan: AST and ALT are elevated, likely due to rhabdomyolysis. Abdominal US showed: Normal right upper quadrant ultrasound. (7) Hypertension: Code(s): I10 - Essential (primary) hypertension Status: Acute Assessment and Plan: Blood pressure 135/57 (8) Dementia: Code(s): F03.90 - Unspecified dementia, unspecified severity, without behavioral disturbance, psychotic disturbance, mood disturbance, and anxiety Status: Acute Assessment and Plan: Donepezil 10 mg PO qpm. Redirect as needed. Bed alarm. Plan CT scan shows findings of possible esophagitis/gastritis and he has been started on famotidine. Subjective Date/time seen: 12/06/24 11:06 Interval history: Patient denies any pain, shortness of breath, headache, dizziness, nausea, or vomiting. Patient reports hitting his right elbow when he fell. Review of Systems Review of Systems: All systems reviewed & are unremarkable except as noted in HPI and below Exam Const: General: comfortable and no acute distress Eyes: Sclera: sclerae normal Resp: Effort & Inspection: normal respiratory effort Auscultation: clear to auscultation bilaterally Cardio: Rate: regular rate Rhythm: regular rhythm GI: GI Palp: Yes Soft to palpation Auscultation: normal bowel sounds Urinary Catheter: Urinary Catheter: patent and draining (fatmata with blood tinge) Skin: Other: Abrasion and bruising to right elbow. Neuro: Speech: normal speech Other: A&Ox2. Extrem: General: no pedal edema Psych: Other: Pleasantly confused and cooperative. Objective Data Vital Signs Vital Signs: Vital Signs - 24 hr 12/05/24 12:54 12/05/24 15:05 12/05/24 15:06 Temperature 98.6 F Pulse Rate 82 78 81 Respiratory Rate 18 Blood Pressure 167/83 H 172/79 H 162/76 H Pulse Oximetry 94 Oxygen Delivery Room Air 12/05/24 15:07 12/05/24 15:16 12/05/24 18:21 Temperature 98.6 F 99.8 F H Pulse Rate 91 88 82 Respiratory Rate 20 20 Blood Pressure 176/78 H 163/94 H 180/80 H Pulse Oximetry 95 96 Oxygen Delivery 12/05/24 21:00 12/05/24 22:00 12/05/24 22:00 Temperature 98.1 F 99.0 F Pulse Rate 74 76 Respiratory Rate 23 H 20 Blood Pressure 158/66 H 178/78 H Pulse Oximetry 100 91 Oxygen Delivery Room Air 12/06/24 06:00 Temperature 98.3 F Pulse Rate 67 Respiratory Rate 18 Blood Pressure 170/68 H Pulse Oximetry 99 Oxygen Delivery Intake/Output Intake/Output: Intake & Output 12/03/24 12/04/24 12/05/24 12/06/24 23:59 23:59 23:59 23:59 Intake Total 1000 2181.3 Output Total 1500 1800 Balance -500 381.3 Meds/Results Medications: Active Medications Generic Name Dose Route Start Last Admin Trade Name Freq PRN Reason Stop Dose Admin Acetaminophen 650 mg 12/05/24 16:29 Acetaminophen 325 Mg Tablet PO Q4H PRN Mild Pain (1-3) or Fever Albuterol/Ipratropium 3 ml 12/05/24 21:27 Ipratropium 0.5 Mg/Albuterol Sulfate 2.5 Mg Ampul.Neb 3 Ml INHALATION Q6HRT PRN Shortness Of Breath Or Wheezing Aspirin 81 mg 12/06/24 09:00 Aspirin 81 Mg Enteric Tablet PO [facility] Azithromycin 500 mg 12/06/24 09:30 Azithromycin 250 Mg Tablet PO 12/10/24 09:01 DAILY [facility] Donepezil HCl 10 mg 12/06/24 18:00 Donepezil Hcl 10 Mg Tablet PO QPM NILSA Famotidine 20 mg 12/06/24 09:00 12/06/24 10:20 Famotidine 20 Mg/2 Ml Vial IV PUSH 20 mg Q12HR NILSA Administration Sodium Chloride 1,000 mls @ 200 mls/hr 12/05/24 16:30 12/06/24 10:17 Normal Saline Iv IV CONT 125 mls/hr .Q5H NILSA Administration Ceftriaxone Sodium 2 gm in 100 mls @ 200 mls/hr 12/06/24 09:20 12/06/24 10:18 Rocephin 2 Gm/Ns 100 Ml IVPB 200 mls/hr DAILY NILSA Administration Losartan Potassium 25 mg 12/06/24 09:20 Losartan Potassium 25 Mg Tablet PO Q12HR [facility] Ondansetron HCl 4 mg 12/05/24 16:29 Ondansetron Inj 4 Mg/2 Ml Vial IV PUSH Q4H PRN Nausea Oseltamivir Phosphate 30 mg 12/05/24 21:00 12/05/24 22:35 Oseltamivir Phosphate 30 Mg Capsule PO 12/10/24 20:59 30 mg Q12HR NILSA Administration Tamsulosin HCl 0.4 mg 12/06/24 09:00 Tamsulosin Hcl 0.4 Mg Capsule PO QAM [facility] Vitamin B Complex 1 cap 12/06/24 09:00 Vitamin B Complex Capsule PO DAILY [facility] Radiology Results: ITS Impressions Head CT 12/05/24 13:23 Impression: No intracranial hemorrhage, mass, or acute infarct. Atrophy and chronic white matter changes, as above. Chest X-Ray 12/05/24 13:44 IMPRESSION: 1. No acute cardiopulmonary disease. Abdomen/Pelvis CT 12/05/24 17:41 IMPRESSION: Dependent bilateral lower lobe pulmonary opacities may represent infection and/or aspiration. Moderate esophagitis/gastritis. Gallbladder hydrops, may be secondary to obstruction or fasting. Marked urinary bladder distention with mild wall thickening/inflammatory change and moderate bilateral hydronephrosis. No obstructing stone or mass detected. Correlate with urinalysis and for history of urinary retention. Renal Ultrasound 12/06/24 10:35 IMPRESSION: 1. Mild bilateral hydronephrosis with improvement status post Wong catheter placement. Abdomen Ultrasound 12/06/24 10:36 IMPRESSION: 1. Normal right upper quadrant ultrasound. Labs Labs: Laboratory Results - last 24 hr 12/05/24 12/05/24 12/06/24 13:35 22:05 06:24 WBC 19.3 H RBC 3.65 L Hgb 11.4 L Hct 35.8 L MCV 98.1 MCH 31.2 MCHC 31.8 L RDW 13.4 Plt Count 244 MPV 10.4 Immature Gran % (Auto) 0.5 Neut % (Auto) 91.3 H Lymph % (Auto) 2.8 L [place] % (Auto) 5.1 Eos % (Auto) 0.0 Baso % (Auto) 0.3 Lymph # (Auto) 0.55 L [place] # (Auto) 1.0 H Eos # (Auto) 0.0 Baso # (Auto) 0.1 Abs Immat Gran (auto) 0.10 H Absolute Neuts (auto) 17.6 H Absolute Nucleated RBC 0.000 Nucleated RBC % 0.0 Sodium 140 Potassium 4.1 Chloride 103 Carbon Dioxide 21 L Anion Gap 16 H BUN 34 H Creatinine 1.80 H Estim Creat Clear Calc 29 Estimated GFR 37 L Glucose 123 H Calcium 9.0 Phosphorus 4.1 Magnesium Total Bilirubin 0.7 AST 174 H ALT 51 H Alkaline Phosphatase 70 Total Creatine Kinase 9803 H Total Protein 7.0 Albumin 4.0 Nasal MRSA (PCR) Not detected 12/06/24 06:28 WBC 13.7 H RBC 3.19 L Hgb 9.8 L Hct 31.3 L MCV 98.1 MCH 30.7 MCHC 31.3 L RDW 13.3 Plt Count 207 MPV 10.4 Immature Gran % (Auto) Neut % (Auto) Lymph % (Auto) [place] % (Auto) Eos % (Auto) Baso % (Auto) Lymph # (Auto) [place] # (Auto) Eos # (Auto) Baso # (Auto) Abs Immat Gran (auto) Absolute Neuts (auto) Absolute Nucleated RBC Nucleated RBC % Sodium 140 Potassium 4.3 Chloride 108 H Carbon Dioxide 26 Anion Gap 6 BUN 28 H Creatinine 1.66 H Estim Creat Clear Calc 32 Estimated GFR 40 L Glucose 87 Calcium 8.7 Phosphorus Magnesium 2.1 Total Bilirubin 0.5 AST 344 H ALT 96 H Alkaline Phosphatase 55 Total Creatine Kinase > 80983 H Total Protein 6.0 L Albumin 3.2 L Nasal MRSA (PCR) Quality VTE Prophylaxis VTE prophylaxis: mechanical ordered and pharmacologic ordered
[2024-12-06] MEDS: OSELTAMIVIR PHOSPHATE 30 MG CAPSULE PO ×2 (12:18→21:05)
[2024-12-06] MEDS: LOSARTAN POTASSIUM 25 MG TABLET PO (12:18)
[2024-12-06] MEDS: AZITHROMYCIN 250 MG TABLET 500 MG PO (12:19)
[2024-12-06] MEDS: SODIUM CHLORIDE 0.9% IV 1,000 ML 200 ML IV CONT ×3 (12:19→21:09)
[2024-12-06] MEDS: VITAMIN B COMPLEX CAPSULE 1 CAP PO (12:19)
[2024-12-06] MEDS: TAMSULOSIN HCL 0.4 MG CAPSULE PO (12:19)
--- NOTE | 2024-12-06 12:20 | PCSTNOTE ---
Please refer to the Modified Barium Swallow Evaluation in the EMR. The pt was seen for an MBS due to chest CT showing concern for aspiration; per H&P, pt's spouse denies pt having difficulty with eating/drinking. Pt was seated for a lateral view and presented with 5ml thin liquid via a spoon, 1/2 & full tsp amounts of pudding consistency barium via a spoon, and bite-size pieces of cracker coated with barium via a spoon. He was also tested with thin liquids in uncontrolled amounts via a cup and a straw. With the cup drinking, the pt was instructed to take a small sip; however, he took such a large amount it took 3 consecutive swallows to clear from mouth. The oral stages were WFL; no concerns were exhibited. During the pharyngeal stage, a trace laryngeal penetration occurred with the 5 ml thin liquids. It lingered within the laryngeal vestibule until pt was cued to cough which then cleared the contents. Reduced tongue base retraction was also exhibited as evidenced by moderate vallecular residual across all consistencies. Pt again required verbal cues to dry swallow which cleared a portion of the contents each time. At the end of testing with the verbal cues, pt cleared all but a trace amount remaining in the valleculae. Impression: Mild dysphagia Recommendation: regular solids with regular liquids, pt requires meal time supervision to cue him to dry swallow b/t sips and bites; ST will see for dysphagia therapy.
[2024-12-06 14:00] VITALS: BP 135/57; PULSE 67; RESP 14; TEMP 36.2; O2SAT 99
[2024-12-06 16:09] LABS: Creatine Kinase > 16000 U/L (55-170)
[2024-12-06] MEDS: DONEPEZIL HCL 10 MG TABLET PO (17:08)
[2024-12-06] MEDS: ALPRAZolam (*CRX) 0.125 MG TABLET PO (21:05)
[2024-12-06] MEDS: HEPARIN SODIUM 5,000 UNITS/ML VIAL 5000 UNITS SUB-Q (21:07)
[2024-12-06 22:00] VITALS: BP 150/63; PULSE 84; RESP 18; TEMP 37.6; O2SAT 95
--- NOTE | 2024-12-06 23:07 | ECG_ITS ---
Test Date: 2024-12-06 23:30:00 Measurements Intervals War Rate: 92 P: 48 MI: 128 QRS: 27 QRSD: 164 T: 29 QT: 413 QTc: 513 Interpretive Statements SINUS RHYTHM RIGHT BUNDLE BRANCH BLOCK BASELINE ARTIFACT- I, III, AVR, AVL, AVF ABNORMAL ECG No previous ECG available for comparison Electronically Signed On 12-07-2024 07:10:02 SERVICENOW ADMINISTRATOR by Papi Otero D.O.
[2024-12-06 23:16] LABS: Bacteria Urine None Seen /hpf; RBC Urine >100 /hpf (0-2); Squamous Epithelial Cell Urine None Seen /hpf (Few)
[2024-12-06 23:28] LABS: Add Urine Microscopic? YES; Appearance Urine Clear (Clear); Bilirubin Urine Negative (Negative); Blood Urine 3+ (Negative); Color Urine Amber (Yellow); Glucose Urine UA Negative (Negative); Ketones Urine Negative (Negative); Leukocyte Esterase Ur 1+ LEU/UL (Negative); Nitrate Urine Negative (Negative); Protein Urine 1+ mg/dL (Negative); Urobilinogen Urine 0.2 mg/dL (<2.0); pH Urine 5.5 (5.0-9.0)
--- NOTE | 2024-12-07 00:01 | ECG_ITS ---
Test Date: 2024-12-07 00:16:27 Measurements Intervals [place] Rate: 90 P: 58 [place]: 128 QRS: 42 QRSD: 171 T: 32 QT: 429 QTc: 527 Interpretive Statements SINUS RHYTHM RIGHT BUNDLE BRANCH BLOCK BASELINE ARTIFACT- II, III, AVR, AVL, AVF, V4-V6 ABNORMAL ECG Compared to ECG 12/06/2024 23:30:00 No significant changes Electronically Signed On 12-07-2024 07:11:35 PRESCHOOL TEACHER'S ASSISTANT by Papi Otero D.O.
[2024-12-07 01:10] VITALS: BP 176/73; PULSE 93; RESP 18; TEMP 37.2; O2SAT 91
[2024-12-07] MEDS: OLANZapine 5 MG TABLET PO (01:17)
[2024-12-07] MEDS: ACETAMINOPHEN 325 MG TABLET 650 MG PO ×2 (01:17→20:52)
[2024-12-07] MEDS: SODIUM CHLORIDE 0.9% IV 1,000 ML 200 ML IV CONT ×4 (03:13→20:51)
[2024-12-07 06:00] VITALS: BP 173/82; PULSE 99; RESP 18; TEMP 37; O2SAT 94
[2024-12-07 07:33] LABS: Basophils Percent Auto 0.4 % (0.2-1.2); Eosinophils Absolute Auto 0.1 K/mm3 (0-0.3); Eosinophils Percent Auto 0.4 % (0-4.4); Hematocrit 32.6 % (42.0-52.0); Hemoglobin 10.2 g/dL (14.0-18.0); Immature Granulocyte Absolute 0.05 K/mm3 (0.00-0.031); Immature Granulocyte Percent A 0.4 % (0-0.5); Lymphocytes Percent Auto 14.9 % (18.3-44.2); Mean Corpuscular HGB Conc 31.3 g/dl (32-36); Mean Corpuscular Hemoglobin 30.6 pg (26-34); Mean Corpuscular Volume 97.9 fl (80-100); Mean Platelet Volume 10.5 fl (7.4-10.4); Monocytes Absolute Auto 0.7 K/mm3 (0.1-0.6); Monocytes Percent Auto 6.1 % (2.6-8.5); Neutrophils Absolute Auto 8.9 K/mm3 (1.3-6.7); Neutrophils Percent Auto 77.8 % (45.5-73.1); Platelet Count Result 221 k/mm3 (150-375); Red Blood Count 3.33 M/mm3 (4.6-6.20); Red Cell Distribution Width 13.2 % (11.5-14.5); White Blood Count 11.4 K/mm3 (4.5-10.0)
--- NOTE | 2024-12-07 08:33 | P.PNIM_ITS ---
Progress Note: A&P Assessment and Plan (1) Unwitnessed fall: Code(s): R29.6 - Repeated falls Status: Acute Assessment and Plan: * Up with assistance only. * Bed alarm * PT/OT (2) Rhabdomyolysis: Code(s): M62.82 - Rhabdomyolysis Status: Acute Assessment and Plan: * CK>16,000. * NS@200 ml/hr. * CK in a.m. (3) Influenza: Code(s): J11.1 - Influenza due to unidentified influenza virus with other respiratory ma nifestations Status: Acute Assessment and Plan: * Oseltamivir 30 mg PO q 12. (4) Urinary retention: Code(s): R33.9 - Retention of urine, unspecified Status: Acute Assessment and Plan: . Leukocytosis improving * wong in place. * Tamsulosin 0.4 mg PO qam. * UTI on Rocephin (5) Renal failure: Code(s): N19 - Unspecified kidney failure Status: Acute Assessment and Plan: Improving with hydration * Renal ultrasound showed: Mild bilateral hydronephrosis with improvement status post Wong catheter placement. * Nephrology consulted (6) Elevated LFTs: Code(s): R79.89 - Other specified abnormal findings of blood chemistry Status: Acute Assessment and Plan: * AST and ALT are elevated, likely due to rhabdomyolysis. * Abdominal US showed: Normal right upper quadrant ultrasound. * Daily C and P * (7) Hypertension: Code(s): I10 - Essential (primary) hypertension Status: Acute Assessment and Plan: * Blood pressure 135/57 (8) Dementia: Code(s): F03.90 - Unspecified dementia, unspecified severity, without behavioral disturbance, psychotic disturbance, mood disturbance, and anxiety Status: Acute Assessment and Plan: * Donepezil 10 mg PO qpm. * Redirect as needed. * Bed alarm. Plan CT scan shows findings of possible esophagitis/gastritis and he has been started on famotidine. Time Spent With Patient Time with patient: Greater than 35 minutes Subjective Date/time seen: 12/07/24 08:33 Interval history: 79-year-old male with dementia, hypertension, hyperlipidemia, and coronary artery disease who presented to the emergency department via EMS from home for evaluation after a fall. S states the patient is more confused than normal. LFTs increasing ordered abdominal ultrasound Review of Systems Review of Systems: 12 systems were reviewed and are negativ e except for as per HPI. All systems reviewed & are unremarkable except as noted in HPI and below Exam Narrative: General: Mildly ill-appearing elderly gentleman supine in bed in no acute distress. Weight: 72.5 kg. BMI: 24.3. HEENT: Normocephalic, atraumatic. PERRL, EOMI. Sclera anicteric. Tacky mucous membranes. Neck: Supple. No JVD or lymphadenopathy. Respiratory: Respirations are nonlabored and lungs are clear to auscultation. Cardiovascular: Regular rate and rhythm with S1-S2. Gastrointestinal: Bladder is distended and he is tender to palpation and percussion in the right mid to lower quadrant. Negative Talamantes sign. Bowel sounds are present. No guarding or rebound tenderness. No CVA tenderness. Skin: Warm and dry. Skin tear on the right elbow and left hand. Extremities: No cyanosis, clubbing, or edema. Radial and pedal pulses intact. Neurological: Alert and oriented x2. He seems to have short-term memory loss and is not able to or provide an accurate history with regards to situation. Cranial nerves 2-12 are grossly intact. Speech is clear. No facial asymmetry. Generalized weakness without gross focal findings. Psychiatric: Pleasantly confused and cooperative. Objective Data Vital Signs Vital Signs: Vital Signs - 24 hr 12/06/24 14:00 12/06/24 20:00 12/06/24 22:00 Temperature 97.2 F L 99.7 F H Pulse Rate 67 84 Respiratory Rate 14 18 Blood Pressure 135/57 L 150/63 H Pulse Oximetry 99 95 Oxygen Delivery Room Air 12/07/24 01:10 12/07/24 06:00 Temperature 99.0 F 98.6 F Pulse Rate 93 99 Respiratory Rate 18 18 Blood Pressure 176/73 H 173/82 H Pulse Oximetry 91 94 Oxygen Delivery Intake/Output Intake/Output: Intake & Output 12/04/24 12/05/24 12/06/24 12/07/24 23:59 23:59 23:59 23:59 Intake Total 1000 4679.1 1050 Output Total 1500 2750 2000 Balance -500 1929.1 -950 Meds/Results Medications: Active Medications Generic Name Dose Route Start Last Admin Trade Name Freq PRN Reason Stop Dose Admin Acetaminophen 650 mg 12/05/24 16:29 12/07/24 01:17 Acetaminophen 325 Mg Tablet PO 650 mg Q4H PRN Administration Mild Pain (1-3) or Fever Albuterol/Ipratropium 3 ml 12/05/24 21:27 Ipratropium 0.5 Mg/Albuterol Sulfate 2.5 Mg Ampul.Neb 3 Ml INHALATION Q6HRT PRN Shortness Of Breath Or Wheezing Aspirin 81 mg 12/06/24 09:00 12/06/24 12:19 Aspirin 81 Mg Enteric Tablet PO Not Given QAM NILSA Azithromycin 500 mg 12/06/24 09:30 12/06/24 12:19 Azithromycin 250 Mg Tablet PO 12/10/24 09:01 500 mg DAILY NILSA Administration Donepezil HCl 10 mg 12/06/24 18:00 12/06/24 17:08 Donepezil Hcl 10 Mg Tablet PO 10 mg QPM NILSA Administration Famotidine 20 mg 12/06/24 09:00 12/06/24 21:06 Famotidine 20 Mg/2 Ml Vial IV PUSH 20 mg Q12HR NILSA Administration Heparin Sodium (Porcine) 5,000 units 12/06/24 21:00 12/06/24 21:07 Heparin Sodium 5,000 Units/Ml Vial SUB-Q 5,000 units Q12HR NILSA Administration Sodium Chloride 1,000 mls @ 200 mls/hr 12/05/24 16:30 12/07/24 03:13 Normal Saline Iv IV CONT 200 mls/hr .Q5H NILSA Administration Ceftriaxone Sodium 2 gm in 100 mls @ 200 mls/hr 12/06/24 09:20 12/06/24 10:18 Rocephin 2 Gm/Ns 100 Ml IVPB 200 mls/hr DAILY NILSA Administration Losartan Potassium 25 mg 12/06/24 09:20 12/06/24 12:18 Losartan Potassium 25 Mg Tablet PO 25 mg Q12HR NILSA Administration Ondansetron HCl 4 mg 12/05/24 16:29 Ondansetron Inj 4 Mg/2 Ml Vial IV PUSH Q4H PRN Nausea Oseltamivir Phosphate 30 mg 12/05/24 21:00 12/06/24 21:05 Oseltamivir Phosphate 30 Mg Capsule PO 12/10/24 20:59 30 mg Q12HR NILSA Administration Tamsulosin HCl 0.4 mg 12/06/24 09:00 12/06/24 12:19 Tamsulosin Hcl 0.4 Mg Capsule PO 0.4 mg QAM NILSA Administration Vitamin B Complex 1 cap 12/06/24 09:00 12/06/24 12:19 Vitamin B Complex Capsule PO 1 cap DAILY NILSA Administration Radiology Results: ITS Impressions Head CT 12/05/24 13:23 Impression: No intracranial hemorrhage, mass, or acute infarct. Atrophy and chronic white matter changes, as above. Chest X-Ray 12/05/24 13:44 IMPRESSION: 1. No acute cardiopulmonary disease. Abdomen/Pelvis CT 12/05/24 17:41 IMPRESSION: Dependent bilateral lower lobe pulmonary opacities may represent infection and/or aspiration. Moderate esophagitis/gastritis. Gallbladder hydrops, may be secondary to obstruction or fasting. Marked urinary bladder distention with mild wall thickening/inflammatory change and moderate bilateral hydronephrosis. No obstructing stone or mass detected. Correlate with urinalysis and for history of urinary retention. Renal Ultrasound 12/06/24 10:35 IMPRESSION: 1. Mild bilateral hydronephrosis with improvement status post Wong catheter placement. Abdomen Ultrasound 12/06/24 10:36 IMPRESSION: 1. Normal right upper quadrant ultrasound. Modified Barium Swallow 12/06/24 11:50 IMPRESSION: Mild pharyngeal dysphagia with single episode of laryngeal penetration without aspiration with thin liquids. Please correlate with speech pathologist findings and specific feeding recommendations. Labs Labs: Laboratory Results - last 24 hr 12/06/24 12/06/24 12/06/24 06:24 14:47 23:08 WBC RBC Hgb Hct MCV MCH MCHC RDW Plt Count MPV Immature Gran % (Auto) Neut % (Auto) Lymph % (Auto) [place] % (Auto) Eos % (Auto) Baso % (Auto) Lymph # (Auto) [place] # (Auto) Eos # (Auto) Baso # (Auto) Abs Immat Gran (auto) Absolute Neuts (auto) Absolute Nucleated RBC Nucleated RBC % Phosphorus 4.1 Total Creatine Kinase > 25818 H Urine Color Susan Urine Appearance Clear Urine pH 5.5 Ur Specific [place] 1.010 Urine Protein 1+ H Urine Glucose (UA) Negative Urine Ketones Negative Ur Blood (Man) 3+ H Urine Nitrate Negative Urine Bilirubin Negative Urine Urobilinogen 0.2 Leukocyte Esterase Rfl 1+ H Urine RBC >100 H Urine WBC 6-10 H Ur Squamous Epith Cells None seen Urine Bacteria None seen Urine Casts 3-5 12/07/24 07:00 WBC 11.4 H RBC 3.33 L Hgb 10.2 L Hct 32.6 L MCV 97.9 MCH 30.6 MCHC 31.3 L RDW 13.2 Plt Count 221 MPV 10.5 H Immature Gran % (Auto) 0.4 Neut % (Auto) 77.8 H Lymph % (Auto) 14.9 L [place] % (Auto) 6.1 Eos % (Auto) 0.4 Baso % (Auto) 0.4 Lymph # (Auto) 1.70 [place] # (Auto) 0.7 H Eos # (Auto) 0.1 Baso # (Auto) 0.0 Abs Immat Gran (auto) 0.05 H Absolute Neuts (auto) 8.9 H Absolute Nucleated RBC 0.000 Nucleated RBC % 0.0 Phosphorus Total Creatine Kinase Urine Color Urine Appearance Urine pH Ur Specific [place] Urine Protein Urine Glucose (UA) Urine Ketones Ur Blood (Man) Urine Nitrate Urine Bilirubin Urine Urobilinogen Leukocyte Esterase Rfl Urine RBC Urine WBC Ur Squamous Epith Cells Urine Bacteria Urine Casts Quality VTE Prophylaxis VTE prophylaxis: mechanical ordered and pharmacologic ordered
[2024-12-07 09:37] LABS: Alanine Aminotransferase 161 U/L (6-50); Albumin Level 3.2 g/dL (3.5-5.1); Alkaline Phosphatase 54 U/L (38-126); Anion Gap 10 mmol/L (4-12); Aspartate Amino Transferase 614 U/L (17-59); Bilirubin,Total 0.7 mg/dL (0.2-1.3); Blood Urea Nitrogen 26 mg/dL (9-20); Calcium 8.3 mg/dL (8.4-10.2); Carbon Dioxide 22 mmol/L (22-30); Chloride 110 mmol/L (98-107); Estimated CRCL calculation 36 ml/min; Estimated Glomerular Filt Rate 48; Glucose 87 mg/dL (65-110); Magnesium 1.8 mg/dL (1.6-2.3); Sodium 142 mmol/L (137-145)
[2024-12-07] MEDS: cefTRIAXone 2 GM/NS 100 ML 2 GM/100 ML BAG IVPB (10:13)
[2024-12-07] MEDS: AZITHROMYCIN 250 MG TABLET 500 MG PO (10:37)
[2024-12-07] MEDS: HEPARIN SODIUM 5,000 UNITS/ML VIAL 5000 UNITS SUB-Q ×2 (10:38→20:52)
[2024-12-07] MEDS: TAMSULOSIN HCL 0.4 MG CAPSULE PO ×2 (10:38→20:52)
[2024-12-07] MEDS: FAMOTIDINE 20 MG TABLET PO ×2 (10:38→20:52)
[2024-12-07] MEDS: VITAMIN B COMPLEX CAPSULE 1 CAP PO (10:38)
[2024-12-07] MEDS: OSELTAMIVIR PHOSPHATE 30 MG CAPSULE PO ×2 (10:38→20:52)
[2024-12-07] MEDS: ASPIRIN 81 MG ENTERIC TABLET PO (10:38)
[2024-12-07 14:00] VITALS: BP 114/47; PULSE 85; RESP 18; TEMP 37.3; O2SAT 98
[2024-12-07] MEDS: DONEPEZIL HCL 10 MG TABLET PO (17:50)
[2024-12-07 21:51] VITALS: BP 168/82; PULSE 84; RESP 18; TEMP 37; O2SAT 95
--- NOTE | 2024-12-07 22:54 | PC.NURSE ---
Sitter at bedside states patient has been asking for beer all afternoon and acting like he is drinking a beer. On admission patient denies any alcohol use. Nurse called his Debi to clarify if patient drinks alcohol. states that patient will occasionally drink a NA (non-alcoholic) beer but has not drank is several years. Ruled out confusion d/t alcohol withdrawal after speaking with .
[2024-12-08] MEDS: SODIUM CHLORIDE 0.9% IV 1,000 ML 200 ML IV CONT ×5 (01:47→22:40)
[2024-12-08 06:00] VITALS: BP 180/75; PULSE 75; RESP 20; TEMP 37; O2SAT 97
--- NOTE | 2024-12-08 07:01 | P.CONUR_ITS ---
Assessment and Plan Assessment and plan (1) Urinary retention: Code(s): R33.9 - Retention of urine, unspecified Status: Acute (2) Rhabdomyolysis: Code(s): M62.82 - Rhabdomyolysis Status: Acute (3) Bilateral hydronephrosis: Code(s): N13.30 - Unspecified hydronephrosis Status: Acute Assessment and Plan: * Bladder outlet obstruction secondary to BPH leading to marked bladder distention with bilateral hydronephrosis. * Hydronephrosis resolved with catheterization * Recommend maximal medical therapy for BPH (tamsulosin and finasteride). Voiding trial prior to discharge with plans to follow-up with Dr. COOMBS seek is as previously arranged on 12/29/2024. Urology Consult Note HPI Date Seen: 12/08/24 Requesting Physician: Rafa Stout MD Primary Care Provider: Pernell Jalloh, MD Consult Narrative Narrative: Joseph Nelson is a 79 year old male previously unknown to our practice but with an upcoming appointment with Dr. Tobar in approximately 3-weeks for hydronephrosis. He is admitted to the emergency department after his having a several day history of generalized weakness, fever eventually leading to a fall. Has recently been found to have influenza a and has chest x-ray finding suggestive of pneumonia. During the course of admission CT scan demonstrated marked bladder distention with bilateral hydronephrosis. Castellanos catheter was placed with drainage of approximately 800 cc. Follow-up renal ultrasound after catheter placement shows resolution hydronephrosis. His an outpatient his serum creatinine was measured in October at 1.85. It has improved slightly with catheter placement. Patient has dementia and cannot supply reliable history. It does not appear has is he treated for outlet obstruction secondary to BPH. Tamsulosin has been added just during this admission. Review of Systems 2 Review of Systems: ROS unobtainable: Yes unobtainable due to mental status PMFSH Past Medical History Medical History (Updated 12/08/24 @ 07:04 by Rogelio Mcbride MD) Coronary artery disease Osteoarthritis Hyperlipidemia Hypertension Dementia Surgical History Surgical History (Updated 12/05/24 @ 21:18 by Betty Herrera PA-C) History of coronary artery stent placement History of arthroplasty of left knee Family History Family History Other Family history non-contributory Social History Social History (Updated 12/05/24 @ 21:19 by Betty Herrera PA-C) Social History: Surrogate medical decision maker: Debi Nelson, spouse ([phone]). Code status: Full code. Smoking status: Former smoker Alcohol intake: never Substance use: never Do You Feel Safe in your Home?: Yes Lack of Transportation: No Lack of Food: Never True Current Housing: I Have Housing Concerned About Future Housing: No Difficulty Paying Gas/Electric Bills: No Difficulty Paying for Meds: No Currently Unemployed: No Education: Decline to Answer Difficulty w/ Childcare or Family Care: No Additional living arrangements comments: Lives with spouse in [place]. 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 Spiritual care concerns: No Meds Home Medications and Allergies Home Medications ?Medication ?Instructions ?Recorded ?Confirmed ?Type aspirin 81 mg capsule 81 mg PO DAILY 12/05/24 12/05/24 History donepezil 10 mg tablet 10 mg PO QPM 12/05/24 12/05/24 History losartan 25 mg tablet 25 mg PO BID 12/05/24 12/05/24 History oseltamivir 30 mg capsule (Tamiflu) 30 mg PO DAILY 5 days #5 caps 12/05/24 12/05/24 Rx vitamin B complex 1 tablet PO DAILY 12/05/24 12/05/24 History Allergies Allergy/AdvReac Type Severity Reaction Status Date / Time No Known Allergies Allergy Verified 12/04/24 19:23 Vital Signs Vital Signs - 24 hr 12/07/24 10:38 12/07/24 14:00 12/07/24 20:00 Temperature 99.2 F Pulse Rate 85 Respiratory Rate 18 Blood Pressure 114/47 L Pulse Oximetry 98 Oxygen Delivery Room Air Room Air 12/07/24 21:51 12/08/24 06:00 Temperature 98.6 F 98.6 F Pulse Rate 84 75 Respiratory Rate 18 20 Blood Pressure 168/82 H 180/75 H Pulse Oximetry 95 97 Oxygen Delivery Exam 2 Const: General: no acute distress Resp: Effort & Inspection: normal respiratory effort GI: Inspection: non-distended GI Palp: No abdominal tenderness and No Guarding due to palpation present (GI) Auscultation: normal bowel sounds Urinary Catheter: Urinary Catheter: patent and draining and urine clear Results Labs 12/07/24 07:00 12/07/24 07:00 Labs: Short CBC 12/07/24 Range/Units 07:00 WBC 11.4 H (4.5-10.0) K/mm3 Hgb 10.2 L (14.0-18.0) g/dL Hct 32.6 L (42.0-52.0) % Plt Count 221 (150-375) k/mm3 BMP 12/07/24 07:00 Sodium 142 Potassium 4.0 Chloride 110 H Carbon Dioxide 22 BUN 26 H Creatinine 1.43 H Glucose 87 Calcium 8.3 L Liver Function 12/07/24 Range/Units 07:00 Total Bilirubin 0.7 (0.2-1.3) mg/dL AST 614 H (17-59) U/L ALT 161 H (6-50) U/L Alkaline Phosphatase 54 (38-126) U/L Albumin 3.2 L (3.5-5.1) g/dL
--- NOTE | 2024-12-08 08:02 | P.PNIM_ITS ---
Progress Note: A&P Assessment and Plan (1) Unwitnessed fall: Code(s): R29.6 - Repeated falls Status: Acute Assessment and Plan: * Up with assistance only. * Bed alarm * PT/OT * Plan for inpatient rehab (2) Rhabdomyolysis: Code(s): M62.82 - Rhabdomyolysis Status: Acute Assessment and Plan: Improving * NS@200 ml/hr. * CK in a.m. (3) Influenza: Code(s): J11.1 - Influenza due to unidentified influenza virus with other respiratory manifestations Status: Acute Assessment and Plan: * Oseltamivir 30 mg PO q 12. (4) Urinary retention: Code(s): R33.9 - Retention of urine, unspecified Status: Acute Assessment and Plan: . Leukocytosis improving * wong in place. * Tamsulosin 0.4 mg PO bid * UTI on Rocephin * Recommend maximal medical therapy for BPH (tamsulosin and finasteride). Voiding trial prior to discharge with plans to follow-up as previously arranged on 12/29/2024. (5) Renal failure: Code(s): N19 - Unspecified kidney failure Status: Acute Assessment and Plan: Improving with hydration * Renal ultrasound showed: Mild bilateral hydronephrosis with improvement status post Wong catheter placement. * He follow-up with Nephrology on scheduled appointment (6) Elevated LFTs: Code(s): R79.89 - Other specified abnormal findings of blood chemistry Status: Acute Assessment and Plan: Improving * AST and ALT are elevated, likely due to rhabdomyolysis. * Abdominal US showed: Normal right upper quadrant ultrasound. * Daily CMP (7) Hypertension: Code(s): I10 - Essential (primary) hypertension Status: Acute Assessment and Plan: Restarted Cozaar Improved after Lasix (8) Dementia: Code(s): F03.90 - Unspecified dementia, unspecified severity, without behavioral disturbance, psychotic disturbance, mood disturbance, and anxiety Status: Acute Assessment and Plan: * Donepezil 10 mg PO qpm. * Redirect as needed. * Bed alarm. Plan CT scan shows findings of possible esophagitis/gastritis and he has been started on famotidine. Time Spent With Patient Time with patient: Greater than 35 minutes Subjective Date/time seen: 12/08/24 08:02 Interval history: 79-year-old male with dementia, hypertension, hyperlipidemia, and coronary artery disease who presented to the emergency department via EMS from home for evaluation after a fall. Patient no longer having visual hallucinations, he is less confused today however he still not at baseline. Be treated for urinary tract infection, rhabdomyolysis with improvement. Review of Systems Review of Systems: 12 systems were reviewed and are negativ e except for as per HPI. All systems reviewed & are unremarkable except as noted in HPI and below Exam Narrative: General: Mildly ill-appearing elderly gentleman supine in bed in no acute distress. Weight: 72.5 kg. BMI: 24.3. HEENT: Normocephalic, atraumatic. PERRL, EOMI. Sclera anicteric. Tacky mucous membranes. Neck: Supple. No JVD or lymphadenopathy. Respiratory: Respirations are nonlabored and lungs are clear to auscultation. Cardiovascular: Regular rate and rhythm with S1-S2. Gastrointestinal: Bladder is distended and he is tender to palpation and percussion in the right mid to lower quadrant. Negative Talamantes sign. Bowel sounds are present. No guarding or rebound tenderness. No CVA tenderness. Skin: Warm and dry. Skin tear on the right elbow and left hand. Extremities: No cyanosis, clubbing, or edema. Radial and pedal pulses intact. Neurological: Alert and oriented x2. He seems to have short-term memory loss and is not able to or provide an accurate history with regards to situation. Cranial nerves 2-12 are grossly intact. Speech is clear. No facial asymmetry. Generalized weakness without gross focal findings. Psychiatric: Pleasantly confused and cooperative. Wong catheter Objective Data Vital Signs Vital Signs: Vital Signs - 24 hr 12/07/24 10:38 12/07/24 14:00 12/07/24 20:00 Temperature 99.2 F Pulse Rate 85 Respiratory Rate 18 Blood Pressure 114/47 L Pulse Oximetry 98 Oxygen Delivery Room Air Room Air 12/07/24 21:51 12/08/24 06:00 Temperature 98.6 F 98.6 F Pulse Rate 84 75 Respiratory Rate 18 20 Blood Pressure 168/82 H 180/75 H Pulse Oximetry 95 97 Oxygen Delivery Intake/Output Intake/Output: Intake & Output 12/05/24 12/06/24 12/07/24 12/08/24 23:59 23:59 23:59 23:59 Intake Total 1000 4779.1 4830 2200 Output Total 1500 2750 3850 1850 Balance -500 2029.1 980 350 Meds/Results Medications: Active Medications Generic Name Dose Route Start Last Admin Trade Name Freq PRN Reason Stop Dose Admin Acetaminophen 650 mg 12/05/24 16:29 12/07/24 20:52 Acetaminophen 325 Mg Tablet PO 650 mg Q4H PRN Administration Mild Pain (1-3) or Fever Albuterol/Ipratropium 3 ml 12/05/24 21:27 Ipratropium 0.5 Mg/Albuterol Sulfate 2.5 Mg Ampul.Neb 3 Ml INHALATION Q6HRT PRN Shortness Of Breath Or Wheezing Aspirin 81 mg 12/06/24 09:00 12/07/24 10:38 Aspirin 81 Mg Enteric Tablet PO 81 mg QAM NILSA Administration Donepezil HCl 10 mg 12/06/24 18:00 12/07/24 17:50 Donepezil Hcl 10 Mg Tablet PO 10 mg QPM NILSA Administration Famotidine 20 mg 12/07/24 09:00 12/07/24 20:52 Famotidine 20 Mg Tablet PO 20 mg Q12HR NILSA Administration Finasteride 5 mg 12/08/24 09:00 Finasteride 5 Mg Tablet PO QAM NILSA Heparin Sodium (Porcine) 5,000 units 12/06/24 21:00 12/07/24 20:52 Heparin Sodium 5,000 Units/Ml Vial SUB-Q 5,000 units Q12HR NILSA Administration Sodium Chloride 1,000 mls @ 200 mls/hr 12/05/24 16:30 12/08/24 06:45 Normal Saline Iv IV CONT 200 mls/hr .Q5H NILSA Administration Ceftriaxone Sodium 2 gm in 100 mls @ 200 mls/hr 12/06/24 09:20 12/07/24 10:43 Rocephin 2 Gm/Ns 100 Ml IVPB Infused DAILY NILSA Infusion Losartan Potassium 25 mg 12/06/24 09:20 12/06/24 12:18 Losartan Potassium 25 Mg Tablet PO 25 mg Q12HR NILSA Administration Ondansetron HCl 4 mg 12/05/24 16:29 Ondansetron Inj 4 Mg/2 Ml Vial IV PUSH Q4H PRN Nausea Oseltamivir Phosphate 30 mg 12/05/24 21:00 12/07/24 20:52 Oseltamivir Phosphate 30 Mg Capsule PO 12/10/24 20:59 30 mg Q12HR NILSA Administration Tamsulosin HCl 0.4 mg 12/06/24 09:00 12/07/24 10:38 Tamsulosin Hcl 0.4 Mg Capsule PO 0.4 mg QAM NILSA Administration Tamsulosin HCl 0.4 mg 12/07/24 21:00 12/07/24 20:52 Tamsulosin Hcl 0.4 Mg Capsule PO 0.4 mg HS NILSA Administration Vitamin B Complex 1 cap 12/06/24 09:00 12/07/24 10:38 Vitamin B Complex Capsule PO 1 cap DAILY NILSA Administration Radiology Results: ITS Impressions Head CT 12/05/24 13:23 Impression: No intracranial hemorrhage, mass, or acute infarct. Atrophy and chronic white matter changes, as above. Chest X-Ray 12/05/24 13:44 IMPRESSION: 1. No acute cardiopulmonary disease. Abdomen/Pelvis CT 12/05/24 17:41 IMPRESSION: Dependent bilateral lower lobe pulmonary opacities may represent infection and/or aspiration. Moderate esophagitis/gastritis. Gallbladder hydrops, may be secondary to obstruction or fasting. Marked urinary bladder distention with mild wall thickening/inflammatory change and moderate bilateral hydronephrosis. No obstructing stone or mass detected. Correlate with urinalysis and for history of urinary retention. Renal Ultrasound 12/06/24 10:35 IMPRESSION: 1. Mild bilateral hydronephrosis with improvement status post Wong catheter placement. Abdomen Ultrasound 12/06/24 10:36 IMPRESSION: 1. Normal right upper quadrant ultrasound. Modified Barium Swallow 12/06/24 11:50 IMPRESSION: Mild pharyngeal dysphagia with single episode of laryngeal penetration without aspiration with thin liquids. Please correlate with speech pathologist findings and specific feeding recommendations. Labs Labs: Laboratory Results - last 24 hr 12/07/24 07:00 Sodium 142 Potassium 4.0 Chloride 110 H Carbon Dioxide 22 Anion Gap 10 BUN 26 H Creatinine 1.43 H Estim Creat Clear Calc 36 Estimated GFR 48 L Glucose 87 Calcium 8.3 L Magnesium 1.8 Total Bilirubin 0.7 AST 614 H ALT 161 H Alkaline Phosphatase 54 Total Protein 6.0 L Albumin 3.2 L Quality VTE Prophylaxis VTE prophylaxis: mechanical ordered and pharmacologic ordered
[2024-12-08 08:19] LABS: Basophils Percent Auto 0.4 % (0.2-1.2); Eosinophils Absolute Auto 0.1 K/mm3 (0-0.3); Eosinophils Percent Auto 1.2 % (0-4.4); Hematocrit 28.4 % (42.0-52.0); Hemoglobin 8.9 g/dL (14.0-18.0); Immature Granulocyte Absolute 0.04 K/mm3 (0.00-0.031); Immature Granulocyte Percent A 0.5 % (0-0.5); Lymphocytes Absolute Auto 1.34 K/mm3 (0.9-3.2); Lymphocytes Percent Auto 15.6 % (18.3-44.2); Mean Corpuscular HGB Conc 31.3 g/dl (32-36); Mean Corpuscular Hemoglobin 30.3 pg (26-34); Mean Corpuscular Volume 96.6 fl (80-100); Mean Platelet Volume 10.4 fl (7.4-10.4); Monocytes Absolute Auto 0.7 K/mm3 (0.1-0.6); Monocytes Percent Auto 7.6 % (2.6-8.5); Neutrophils Absolute Auto 6.4 K/mm3 (1.3-6.7); Neutrophils Percent Auto 74.7 % (45.5-73.1); Platelet Count Result 197 k/mm3 (150-375); Red Blood Count 2.94 M/mm3 (4.6-6.20); Red Cell Distribution Width 13.1 % (11.5-14.5); White Blood Count 8.6 K/mm3 (4.5-10.0)
[2024-12-08 08:32] LABS: Alanine Aminotransferase 135 U/L (6-50); Alkaline Phosphatase 52 U/L (38-126); Anion Gap 8 mmol/L (4-12); Aspartate Amino Transferase 342 U/L (17-59); Bilirubin,Total 0.6 mg/dL (0.2-1.3); Blood Urea Nitrogen 17 mg/dL (9-20); Calcium 7.9 mg/dL (8.4-10.2); Carbon Dioxide 21 mmol/L (22-30); Chloride 112 mmol/L (98-107); Estimated CRCL calculation 40 ml/min; Estimated Glomerular Filt Rate 53; Glucose 95 mg/dL (65-110); Magnesium 1.6 mg/dL (1.6-2.3); Potassium 3.7 mmol/L (3.4-5.0); Sodium 141 mmol/L (137-145)
[2024-12-08] MEDS: cefTRIAXone 2 GM/NS 100 ML 2 GM/100 ML BAG IVPB (09:07)
[2024-12-08] MEDS: HEPARIN SODIUM 5,000 UNITS/ML VIAL 5000 UNITS SUB-Q ×2 (09:10→20:58)
[2024-12-08 09:14] LABS: Creatine Kinase 10124 U/L (55-170)
[2024-12-08] MEDS: OSELTAMIVIR PHOSPHATE 30 MG CAPSULE PO ×2 (09:14→20:48)
[2024-12-08] MEDS: FINASTERIDE 5 MG TABLET PO (09:14)
[2024-12-08] MEDS: VITAMIN B COMPLEX CAPSULE 1 CAP PO (09:14)
[2024-12-08] MEDS: FAMOTIDINE 20 MG TABLET PO ×2 (09:14→20:58)
[2024-12-08] MEDS: TAMSULOSIN HCL 0.4 MG CAPSULE PO ×2 (09:14→20:58)
[2024-12-08 09:15] VITALS: RESP 20; O2SAT 97
[2024-12-08] MEDS: ASPIRIN 81 MG ENTERIC TABLET PO (09:15)
[2024-12-08] MEDS: LOSARTAN POTASSIUM 25 MG TABLET PO ×2 (09:19→20:58)
--- NOTE | 2024-12-08 09:27 | PCPTNOTE ---
Per nursing, hold PT eval at 0926 as pt is to tired and just got to sleep.
[2024-12-08] MEDS: FUROSEMIDE INJ 40 MG/4 ML VIAL 20 MG IV PUSH (10:28)
[2024-12-08] MEDS: CALCIUM GLUC 1,000 MG/NS 50 ML 1,000 MG/50 ML BAG 100 MG IVPB (10:28)
[2024-12-08 13:27] LABS: Pneumococcal Antigen Urine NOT DETECTED
[2024-12-08 14:00] VITALS: BP 135/62; PULSE 74; RESP 16; TEMP 36.3; O2SAT 100
[2024-12-08] MEDS: DONEPEZIL HCL 10 MG TABLET PO (17:18)
[2024-12-08 19:59] LABS: Mycoplasma IgM Antibody Titer 37 U/mL
[2024-12-08 22:00] VITALS: BP 154/58; PULSE 69; RESP 20; TEMP 36.3; O2SAT 100
[2024-12-09] MEDS: SODIUM CHLORIDE 0.9% IV 1,000 ML 200 ML IV CONT ×4 (03:25→22:40)
[2024-12-09 06:00] VITALS: BP 174/63; PULSE 78; RESP 20; TEMP 36.3; O2SAT 99
[2024-12-09 07:43] LABS: Basophils Percent Auto 0.4 % (0.2-1.2); Eosinophils Absolute Auto 0.2 K/mm3 (0-0.3); Eosinophils Percent Auto 3.1 % (0-4.4); Hematocrit 29.6 % (42.0-52.0); Hemoglobin 9.4 g/dL (14.0-18.0); Immature Granulocyte Absolute 0.05 K/mm3 (0.00-0.031); Immature Granulocyte Percent A 0.6 % (0-0.5); Lymphocytes Absolute Auto 1.57 K/mm3 (0.9-3.2); Lymphocytes Percent Auto 20.4 % (18.3-44.2); Mean Corpuscular HGB Conc 31.8 g/dl (32-36); Mean Corpuscular Volume 97.7 fl (80-100); Mean Platelet Volume 10.4 fl (7.4-10.4); Monocytes Absolute Auto 0.7 K/mm3 (0.1-0.6); Neutrophils Absolute Auto 5.1 K/mm3 (1.3-6.7); Neutrophils Percent Auto 66.5 % (45.5-73.1); Platelet Count Result 193 k/mm3 (150-375); Red Blood Count 3.03 M/mm3 (4.6-6.20); White Blood Count 7.7 K/mm3 (4.5-10.0)
[2024-12-09 08:03] LABS: Alanine Aminotransferase 117 U/L (6-50); Albumin Level 2.9 g/dL (3.5-5.1); Alkaline Phosphatase 49 U/L (38-126); Anion Gap 5 mmol/L (4-12); Aspartate Amino Transferase 207 U/L (17-59); Bilirubin,Total 0.5 mg/dL (0.2-1.3); Blood Urea Nitrogen 17 mg/dL (9-20); Calcium 8.1 mg/dL (8.4-10.2); Carbon Dioxide 26 mmol/L (22-30); Chloride 109 mmol/L (98-107); Estimated CRCL calculation 41 ml/min; Estimated Glomerular Filt Rate 54; Glucose 93 mg/dL (65-110); Magnesium 1.5 mg/dL (1.6-2.3); Sodium 140 mmol/L (137-145)
[2024-12-09] MEDS: TAMSULOSIN HCL 0.4 MG CAPSULE PO ×2 (09:10→20:42)
[2024-12-09] MEDS: cefTRIAXone 2 GM/NS 100 ML 2 GM/100 ML BAG IVPB (09:10)
[2024-12-09] MEDS: FAMOTIDINE 20 MG TABLET PO ×2 (09:10→20:42)
[2024-12-09] MEDS: LOSARTAN POTASSIUM 25 MG TABLET PO ×2 (09:10→20:42)
[2024-12-09] MEDS: HEPARIN SODIUM 5,000 UNITS/ML VIAL 5000 UNITS SUB-Q ×2 (09:10→20:42)
[2024-12-09] MEDS: VITAMIN B COMPLEX CAPSULE 1 CAP PO (09:10)
[2024-12-09] MEDS: FINASTERIDE 5 MG TABLET PO (09:10)
[2024-12-09] MEDS: OSELTAMIVIR PHOSPHATE 30 MG CAPSULE PO ×2 (09:10→20:42)
[2024-12-09] MEDS: ASPIRIN 81 MG ENTERIC TABLET PO (09:10)
[2024-12-09] MEDS: FUROSEMIDE INJ 40 MG/4 ML VIAL 20 MG IV PUSH (09:11)
[2024-12-09 09:35] LABS: Creatine Kinase 3737 U/L (55-170)
--- NOTE | 2024-12-09 10:20 | P.PNIM_ITS ---
Progress Note: A&P Assessment and Plan (1) Unwitnessed fall: Code(s): R29.6 - Repeated falls Status: Acute Assessment and Plan: * Up with assistance only. * Bed alarm * Plan for inpatient rehab this weekend * (2) Rhabdomyolysis: Code(s): M62.82 - Rhabdomyolysis Status: Acute Assessment and Plan: Improving * NS@200 ml/hr. * CK in a.m. Will likely be will discontinue fluids shortly (3) Influenza: Code(s): J11.1 - Influenza due to unidentified influenza virus with other respiratory manifestations Status: Acute Assessment and Plan: * Oseltamivir 30 mg PO q 12. * Guaifenesin * (4) Urinary retention: Code(s): R33.9 - Retention of urine, unspecified Status: Acute Assessment and Plan: . Leukocytosis improving * wong in place. * Tamsulosin 0.4 mg PO bid * UTI on Rocephin completed, leukocytosis resolved * Recommend maximal medical therapy for BPH (tamsulosin and finasteride). Voiding trial prior to discharge with plans to follow-up as previously arranged on 12/29/2024. (5) Renal failure: Code(s): N19 - Unspecified kidney failure Status: Acute Assessment and Plan: Improving with hydration * Renal ultrasound showed: Mild bilateral hydronephrosis with improvement status post Wong catheter placement. * He follow-up with Nephrology on scheduled appointment (6) Elevated LFTs: Code(s): R79.89 - Other specified abnormal findings of blood chemistry Status: Acute Assessment and Plan: Improving * AST and ALT are elevated, likely due to rhabdomyolysis. * Abdominal US showed: Normal right upper quadrant ultrasound. * Daily CMP (7) Hypertension: Code(s): I10 - Essential (primary) hypertension Status: Acute Assessment and Plan: Restarted Cozaar Repeat IV Lasix (8) Dementia: Code(s): F03.90 - Unspecified dementia, unspecified severity, without behavioral disturbance, psychotic disturbance, mood disturbance, and anxiety Status: Acute Assessment and Plan: * Donepezil 10 mg PO qpm. * Redirect as needed. * Bed alarm. Plan CT scan shows findings of possible esophagitis/gastritis and he has been started on famotidine. Time Spent With Patient Time with patient: Greater than 35 minutes Subjective Date/time seen: 12/09/24 10:20 Interval history: 79-year-old male with dementia, hypertension, hyperlipidemia, and coronary artery disease who presented to the emergency department via EMS from home for evaluation after a fall. Patient's leukocytosis is resolved, magnesium 1.5 and calcium 8.1, CK trending down now at 3737, IV Lasix to help with diuresis will aggressive fluid resuscitation for rhabdo Why states the patient's confusion is a really improved over last 2 days, is almost back to baseline. Patient will likely discharge this weekend. Review of Systems Review of Systems: 12 systems were reviewed and are negativ e except for as per HPI. All systems reviewed & are unremarkable except as noted in HPI and below Exam Narrative: General: Mildly ill-appearing elderly gentleman supine in bed in no acute distress. Weight: 72.5 kg. BMI: 24.3. HEENT: Normocephalic, atraumatic. PERRL, EOMI. Sclera anicteric. Tacky mucous membranes. Neck: Supple. No JVD or lymphadenopathy. Respiratory: Respirations are nonlabored and lungs are clear to auscultation. Cardiovascular: Regular rate and rhythm with S1-S2. Gastrointestinal: Bladder is distended and he is tender to palpation and percussion in the right mid to lower quadrant. Negative Talamantes sign. Bowel sounds are present. No guarding or rebound tenderness. No CVA tenderness. Skin: Warm and dry. Skin tear on the right elbow and left hand. Extremities: No cyanosis, clubbing, or edema. Radial and pedal pulses intact. Neurological: Alert and oriented x2. He seems to have short-term memory loss and is not able to or provide an accurate history with regards to situation. Cranial nerves 2-12 are grossly intact. Speech is clear. No facial asymmetry. Generalized weakness without gross focal findings. Psychiatric: Pleasantly confused-improving and cooperative. Wong catheter Objective Data Vital Signs Vital Signs: Vital Signs - 24 hr 12/08/24 14:00 12/08/24 14:25 12/08/24 20:00 Temperature 97.3 F L Pulse Rate 74 Respiratory Rate 16 Blood Pressure 135/62 Pulse Oximetry 100 Oxygen Delivery Room Air Room Air 12/08/24 22:00 12/09/24 06:00 Temperature 97.4 F L 97.4 F L Pulse Rate 69 78 Respiratory Rate 20 20 Blood Pressure 154/58 H 174/63 H Pulse Oximetry 100 99 Oxygen Delivery Intake/Output Intake/Output: Intake & Output 12/06/24 12/07/24 12/08/24 12/09/24 23:59 23:59 23:59 23:59 Intake Total 4779.1 4830 6099.9 2650 Output Total 2750 3850 3150 2900 Balance 2029.1 980 2949.9 -250 Meds/Results Medications: Active Medications Generic Name Dose Route Start Last Admin Trade Name Freq PRN Reason Stop Dose Admin Acetaminophen 650 mg 12/05/24 16:29 12/07/24 20:52 Acetaminophen 325 Mg Tablet PO 650 mg Q4H PRN Administration Mild Pain (1-3) or Fever Albuterol/Ipratropium 3 ml 12/05/24 21:27 Ipratropium 0.5 Mg/Albuterol Sulfate 2.5 Mg Ampul.Neb 3 Ml INHALATION Q6HRT PRN Shortness Of Breath Or Wheezing Aspirin 81 mg 12/06/24 09:00 12/09/24 09:10 Aspirin 81 Mg Enteric Tablet PO 81 mg QAM NILSA Administration Donepezil HCl 10 mg 12/06/24 18:00 12/08/24 17:18 Donepezil Hcl 10 Mg Tablet PO 10 mg QPM NILSA Administration Famotidine 20 mg 12/07/24 09:00 12/09/24 09:10 Famotidine 20 Mg Tablet PO 20 mg Q12HR NILSA Administration Finasteride 5 mg 12/08/24 09:00 12/09/24 09:10 Finasteride 5 Mg Tablet PO 5 mg QAM NILSA Administration Heparin Sodium (Porcine) 5,000 units 12/06/24 21:00 12/09/24 09:10 Heparin Sodium 5,000 Units/Ml Vial SUB-Q 5,000 units Q12HR NILSA Administration Sodium Chloride 1,000 mls @ 200 mls/hr 12/05/24 16:30 12/09/24 09:09 Normal Saline Iv IV CONT 200 mls/hr .Q5H NILSA Administration Ceftriaxone Sodium 2 gm in 100 mls @ 200 mls/hr 12/06/24 09:20 12/09/24 09:10 Rocephin 2 Gm/Ns 100 Ml IVPB 200 mls/hr DAILY NILSA Administration Magnesium Sulfate 2 gm in 50 mls @ 25 mls/hr 12/09/24 08:32 Magnesium Sulf 2 Gm/Water 50ml IVPB 12/09/24 10:31 ONCE ONE Losartan Potassium 25 mg 12/06/24 09:20 12/09/24 09:10 Losartan Potassium 25 Mg Tablet PO 25 mg Q12HR NILSA Administration Ondansetron HCl 4 mg 12/05/24 16:29 Ondansetron Inj 4 Mg/2 Ml Vial IV PUSH Q4H PRN Nausea Oseltamivir Phosphate 30 mg 12/05/24 21:00 12/09/24 09:10 Oseltamivir Phosphate 30 Mg Capsule PO 12/10/24 20:59 30 mg Q12HR NILSA Administration Tamsulosin HCl 0.4 mg 12/06/24 09:00 12/09/24 09:10 Tamsulosin Hcl 0.4 Mg Capsule PO 0.4 mg QAM NILSA Administration Tamsulosin HCl 0.4 mg 12/07/24 21:00 12/08/24 20:58 Tamsulosin Hcl 0.4 Mg Capsule PO 0.4 mg HS NILSA Administration Vitamin B Complex 1 cap 12/06/24 09:00 12/09/24 09:10 Vitamin B Complex Capsule PO 1 cap DAILY NILSA Administration Radiology Results: ITS Impressions Head CT 12/05/24 13:23 Impression: No intracranial hemorrhage, mass, or acute infarct. Atrophy and chronic white matter changes, as above. Chest X-Ray 12/05/24 13:44 IMPRESSION: 1. No acute cardiopulmonary disease. Abdomen/Pelvis CT 12/05/24 17:41 IMPRESSION: Dependent bilateral lower lobe pulmonary opacities may represent infection and/or aspiration. Moderate esophagitis/gastritis. Gallbladder hydrops, may be secondary to obstruction or fasting. Marked urinary bladder distention with mild wall thickening/inflammatory change and moderate bilateral hydronephrosis. No obstructing stone or mass detected. Correlate with urinalysis and for history of urinary retention. Renal Ultrasound 12/06/24 10:35 IMPRESSION: 1. Mild bilateral hydronephrosis with improvement status post Wong catheter placement. Abdomen Ultrasound 12/06/24 10:36 IMPRESSION: 1. Normal right upper quadrant ultrasound. Modified Barium Swallow 12/06/24 11:50 IMPRESSION: Mild pharyngeal dysphagia with single episode of laryngeal penetration without aspiration with thin liquids. Please correlate with speech pathologist findings and specific feeding recommendations. Labs Labs: Laboratory Results - last 24 hr 12/05/24 12/06/24 12/09/24 22:07 06:28 07:14 WBC RBC Hgb Hct MCV MCH MCHC RDW Plt Count MPV Immature Gran % (Auto) Neut % (Auto) Lymph % (Auto) [place] % (Auto) Eos % (Auto) Baso % (Auto) Lymph # (Auto) [place] # (Auto) Eos # (Auto) Baso # (Auto) Abs Immat Gran (auto) Absolute Neuts (auto) Absolute Nucleated RBC Nucleated RBC % Sodium Potassium Chloride Carbon Dioxide Anion Gap BUN Creatinine Estim Creat Clear Calc Estimated GFR Glucose Calcium Magnesium Total Bilirubin AST ALT Alkaline Phosphatase Total Creatine Kinase 3737 H Total Protein Albumin Mycoplasma pneumon IgM 37 Urine Pneumococcal Ag Not detected 12/09/24 07:19 WBC 7.7 RBC 3.03 L Hgb 9.4 L Hct 29.6 L MCV 97.7 MCH 31.0 MCHC 31.8 L RDW 13.0 Plt Count 193 MPV 10.4 Immature Gran % (Auto) 0.6 H Neut % (Auto) 66.5 Lymph % (Auto) 20.4 [place] % (Auto) 9.0 H Eos % (Auto) 3.1 Baso % (Auto) 0.4 Lymph # (Auto) 1.57 [place] # (Auto) 0.7 H Eos # (Auto) 0.2 Baso # (Auto) 0.0 Abs Immat Gran (auto) 0.05 H Absolute Neuts (auto) 5.1 Absolute Nucleated RBC 0.000 Nucleated RBC % 0.0 Sodium 140 Potassium 4.0 Chloride 109 H Carbon Dioxide 26 Anion Gap 5 BUN 17 Creatinine 1.28 Estim Creat Clear Calc 41 Estimated GFR 54 L Glucose 93 Calcium 8.1 L Magnesium 1.5 L Total Bilirubin 0.5 AST 207 H ALT 117 H Alkaline Phosphatase 49 Total Creatine Kinase Total Protein 6.0 L Albumin 2.9 L Mycoplasma pneumon IgM Urine Pneumococcal Ag Quality VTE Prophylaxis VTE prophylaxis: mechanical ordered and pharmacologic ordered
[2024-12-09] MEDS: MAGNESIUM SULF 2 GM/WATER 50ML 2 GM/50 ML BAG IVPB ×2 (11:32→14:58)
--- NOTE | 2024-12-09 12:15 | PCNFU ---
Nutrition Follow-Up Complete: Inadequate energy intake related to swallowing difficulty as evidenced by NPO Goal:Diet orders textures appropriate for patient needs Pt meeting goals Pt current nutrition is Regular diet, regular liquids, monitored by speech, Ensure Enlive TID with meals (350kcals, 20g protein). Nutrition recommendation: continue with current plan of care Last recorded weight is 74.3 kg. Bowel Motility: +BM 12/06 Labs Reviewed: Hgb:9.4, HCT:29.6, GFR:54 Meds Noted: B complex, heparin Skin: WNL Additional Notes: Pt evaluated by speech, recommendations for a regular diet, regular liquids, meals with supervision. Speech continues to work with pt. Intakes good at this time. Ensure Enlive added TID. Monitoring swallowing ability, diet orders, intakes, weights, labs, output Follow up in 7 days
[2024-12-09] MEDS: CALCIUM GLUC 2,000 MG/NS 100ML 2,000 MG/100 ML BAG 100 MG IVPB (13:39)
[2024-12-09 14:00] VITALS: BP 143/66; PULSE 68; RESP 20; TEMP 36.6; O2SAT 100
[2024-12-09 14:54] LABS: Myoglobin, Urine 58 mg/L (0-1)
[2024-12-09] MEDS: DONEPEZIL HCL 10 MG TABLET PO (17:14)
[2024-12-09] MEDS: guaiFENesin 12 HR 600 MG TABCR PO (20:42)
[2024-12-09 22:35] VITALS: BP 141/83; PULSE 88; RESP 18; TEMP 36.5; O2SAT 97
[2024-12-10] MEDS: SODIUM CHLORIDE 0.9% IV 1,000 ML 200 ML IV CONT (03:51)
[2024-12-10 06:00] VITALS: BP 175/76; PULSE 81; RESP 20; TEMP 36.7; O2SAT 99
[2024-12-10 06:59] LABS: Basophils Percent Auto 0.4 % (0.2-1.2); Eosinophils Absolute Auto 0.3 K/mm3 (0-0.3); Eosinophils Percent Auto 3.7 % (0-4.4); Hemoglobin 9.1 g/dL (14.0-18.0); Immature Granulocyte Absolute 0.06 K/mm3 (0.00-0.031); Immature Granulocyte Percent A 0.8 % (0-0.5); Lymphocytes Absolute Auto 1.76 K/mm3 (0.9-3.2); Lymphocytes Percent Auto 24.1 % (18.3-44.2); Mean Corpuscular HGB Conc 31.4 g/dl (32-36); Mean Corpuscular Hemoglobin 30.3 pg (26-34); Mean Corpuscular Volume 96.7 fl (80-100); Mean Platelet Volume 10.2 fl (7.4-10.4); Monocytes Absolute Auto 0.7 K/mm3 (0.1-0.6); Monocytes Percent Auto 8.9 % (2.6-8.5); Neutrophils Absolute Auto 4.5 K/mm3 (1.3-6.7); Neutrophils Percent Auto 62.1 % (45.5-73.1); Platelet Count Result 212 k/mm3 (150-375); Red Cell Distribution Width 12.9 % (11.5-14.5); White Blood Count 7.3 K/mm3 (4.5-10.0)
[2024-12-10 07:15] LABS: Alanine Aminotransferase 110 U/L (6-50); Albumin Level 2.7 g/dL (3.5-5.1); Alkaline Phosphatase 50 U/L (38-126); Anion Gap 8 mmol/L (4-12); Aspartate Amino Transferase 154 U/L (17-59); Bilirubin,Total 0.4 mg/dL (0.2-1.3); Blood Urea Nitrogen 18 mg/dL (9-20); Calcium 8.1 mg/dL (8.4-10.2); Carbon Dioxide 23 mmol/L (22-30); Chloride 110 mmol/L (98-107); Creatine Kinase 1406 U/L (55-170); Estimated CRCL calculation 43 ml/min; Estimated Glomerular Filt Rate 58; Glucose 96 mg/dL (65-110); Magnesium 1.9 mg/dL (1.6-2.3); Potassium 3.7 mmol/L (3.4-5.0); Sodium 141 mmol/L (137-145)
[2024-12-10] MEDS: SODIUM CHLORIDE 0.9% IV 1,000 ML 75 ML IV CONT ×2 (08:59→21:21)
[2024-12-10] MEDS: CALCIUM/VITAMIN D 500 MG/5 MCG (200 I.U.) TABLET PO (08:59)
[2024-12-10] MEDS: FUROSEMIDE 40 MG TABLET PO (08:59)
[2024-12-10] MEDS: VITAMIN B COMPLEX CAPSULE 1 CAP PO (09:01)
[2024-12-10] MEDS: ASPIRIN 81 MG ENTERIC TABLET PO (09:01)
[2024-12-10] MEDS: OSELTAMIVIR PHOSPHATE 30 MG CAPSULE PO (09:01)
[2024-12-10] MEDS: TAMSULOSIN HCL 0.4 MG CAPSULE PO ×2 (09:02→21:07)
[2024-12-10] MEDS: guaiFENesin 12 HR 600 MG TABCR PO ×2 (09:02→21:07)
[2024-12-10] MEDS: FAMOTIDINE 20 MG TABLET PO ×2 (09:03→21:07)
[2024-12-10] MEDS: LOSARTAN POTASSIUM 25 MG TABLET PO ×2 (09:03→21:08)
[2024-12-10] MEDS: FINASTERIDE 5 MG TABLET PO (09:03)
[2024-12-10] MEDS: HEPARIN SODIUM 5,000 UNITS/ML VIAL 5000 UNITS SUB-Q ×2 (09:04→21:08)
[2024-12-10 14:00] VITALS: BP 119/63; PULSE 73; RESP 16; TEMP 36.7; O2SAT 96
[2024-12-10] MEDS: DONEPEZIL HCL 10 MG TABLET PO (17:47)
[2024-12-10] MEDS: traZODone HCL 50 MG TABLET PO (21:08)
[2024-12-10 22:00] VITALS: BP 172/68; PULSE 91; RESP 18; TEMP 36.8; O2SAT 96
[2024-12-11 06:00] VITALS: BP 183/74; PULSE 71; RESP 18; TEMP 36.3; O2SAT 98
[2024-12-11] MEDS: amLODIPine BESYLATE 5 MG TABLET PO ×2 (06:26→08:53)
[2024-12-11 06:27] LABS: Basophils Percent Auto 0.4 % (0.2-1.2); Eosinophils Absolute Auto 0.4 K/mm3 (0-0.3); Eosinophils Percent Auto 3.8 % (0-4.4); Hematocrit 28.3 % (42.0-52.0); Immature Granulocyte Absolute 0.11 K/mm3 (0.00-0.031); Immature Granulocyte Percent A 1.2 % (0-0.5); Lymphocytes Absolute Auto 2.03 K/mm3 (0.9-3.2); Lymphocytes Percent Auto 22.3 % (18.3-44.2); Mean Corpuscular HGB Conc 31.8 g/dl (32-36); Mean Corpuscular Hemoglobin 30.4 pg (26-34); Mean Corpuscular Volume 95.6 fl (80-100); Mean Platelet Volume 10.2 fl (7.4-10.4); Monocytes Absolute Auto 0.8 K/mm3 (0.1-0.6); Monocytes Percent Auto 8.8 % (2.6-8.5); Neutrophils Absolute Auto 5.8 K/mm3 (1.3-6.7); Neutrophils Percent Auto 63.5 % (45.5-73.1); Platelet Count Result 224 k/mm3 (150-375); Red Blood Count 2.96 M/mm3 (4.6-6.20); Red Cell Distribution Width 12.9 % (11.5-14.5); White Blood Count 9.1 K/mm3 (4.5-10.0)
[2024-12-11 06:43] LABS: Alanine Aminotransferase 111 U/L (6-50); Albumin Level 2.9 g/dL (3.5-5.1); Alkaline Phosphatase 51 U/L (38-126); Anion Gap 7 mmol/L (4-12); Aspartate Amino Transferase 139 U/L (17-59); Bilirubin,Total 0.5 mg/dL (0.2-1.3); Blood Urea Nitrogen 23 mg/dL (9-20); Calcium 8.5 mg/dL (8.4-10.2); Carbon Dioxide 27 mmol/L (22-30); Chloride 105 mmol/L (98-107); Creatine Kinase 951 U/L (55-170); Estimated CRCL calculation 37 ml/min; Estimated Glomerular Filt Rate 49; Glucose 93 mg/dL (65-110); Magnesium 1.7 mg/dL (1.6-2.3); Potassium 3.7 mmol/L (3.4-5.0); Sodium 139 mmol/L (137-145)
--- NOTE | 2024-12-11 07:49 | P.PNIM_ITS ---
Progress Note: A&P Assessment and Plan (1) Dementia: Code(s): F03.90 - Unspecified dementia, unspecified severity, without behavioral disturbance, psychotic disturbance, mood disturbance, and anxiety Status: Acute Assessment and Plan: * Donepezil 10 mg PO qpm. * Redirect as needed. * Bed alarm. * Zyprexa added (2) Unwitnessed fall: Code(s): R29.6 - Repeated falls Status: Acute Assessment and Plan: * Up with assistance only. * Bed alarm * Plan for inpatient rehab this weekend (3) Rhabdomyolysis: Code(s): M62.82 - Rhabdomyolysis Status: Acute Assessment and Plan: Improving * DC fluids * CK in a.m. (4) Hypertension: Code(s): I10 - Essential (primary) hypertension Status: Acute Assessment and Plan: Uncontrolled Continue Cozaar Start p.o. hydralazine (5) Influenza: Code(s): J11.1 - Influenza due to unidentified influenza virus with other respiratory manifestations Status: Acute Assessment and Plan: * Oseltamivir 30 mg PO q 12. * Guaifenesin * (6) Urinary retention: Code(s): R33.9 - Retention of urine, unspecified Status: Acute Assessment and Plan: . Leukocytosis improving * wong in place. * Tamsulosin 0.4 mg PO bid * UTI on Rocephin completed, leukocytosis resolved * Recommend maximal medical therapy for BPH (tamsulosin and finasteride). Voiding trial prior to discharge with plans to follow-up as previously arranged on 12/29/2024. (7) Renal failure: Code(s): N19 - Unspecified kidney failure Status: Acute Assessment and Plan: Improving with hydration * Renal ultrasound showed: Mild bilateral hydronephrosis with improvement status post Wong catheter placement. * He follow-up with Nephrology on scheduled appointment (8) Elevated LFTs: Code(s): R79.89 - Other specified abnormal findings of blood chemistry Status: Acute Assessment and Plan: Improving * AST and ALT are elevated, likely due to rhabdomyolysis. * Abdominal US showed: Normal right upper quadrant ultrasound. * Daily CMP (9) Pneumonia: Code(s): J18.9 - Pneumonia, unspecified organism Status: Acute Assessment and Plan: Pneumonia versus atelectasis Azithromycin and Rocephin Daily CBC Plan CT scan shows findings of possible esophagitis/gastritis and he has been started on famotidine. Time Spent With Patient Time with patient: Greater than 35 minutes Subjective Date/time seen: 12/11/24 07:49 Interval history: 79-year-old male with dementia, hypertension, hyperlipidemia, and coronary artery disease who presented to the emergency department via EMS from home for evaluation after a fall. Liver enzymes trending down, liver enzymes trending down, CK under 1000, Wong and IV fluids DC that midnight. Patient did not sleep well last night, trazodone DC, Zyprexa added, Sleep hygiene, chest sounds are coarse today chest x-ray shows possible pneumonia will start IV antibiotics Review of Systems Review of Systems: 12 systems were reviewed and are negativ e except for as per HPI. All systems reviewed & are unremarkable except as noted in HPI and below Exam Narrative: General: Mildly ill-appearing elderly gentleman supine in bed in no acute distress. Weight: 72.5 kg. BMI: 24.3. HEENT: Normocephalic, atraumatic. PERRL, EOMI. Sclera anicteric. Tacky mucous membranes. Neck: Supple. No JVD or lymphadenopathy. Respiratory: Respirations are nonlabored and lungs are clear to auscultation. Cardiovascular: Regular rate and rhythm with S1-S2. Gastrointestinal: Bladder is distended and he is tender to palpation and percussion in the right mid to lower quadrant. Negative Talamantes sign. Bowel sounds are present. No guarding or rebound tenderness. No CVA tenderness. Skin: Warm and dry. Skin tear on the right elbow and left hand. Extremities: No cyanosis, clubbing, or edema. Radial and pedal pulses intact. Neurological: Alert and oriented x2. He seems to have short-term memory loss and is not able to or provide an accurate history with regards to situation. Cranial nerves 2-12 are grossly intact. Speech is clear. No facial asymmetry. Generalized weakness without gross focal findings. Psychiatric: Pleasantly confused-improving and cooperative. Wong catheter Objective Data Vital Signs Vital Signs: Vital Signs - 24 hr 12/10/24 08:00 12/10/24 14:00 12/10/24 20:00 Temperature 98.1 F Pulse Rate 73 Respiratory Rate 16 Blood Pressure 119/63 Pulse Oximetry 96 Oxygen Delivery Room Air Room Air 12/10/24 22:00 12/11/24 06:00 Temperature 98.2 F 97.4 F L Pulse Rate 91 71 Respiratory Rate 18 18 Blood Pressure 172/68 H 183/74 H Pulse Oximetry 96 98 Oxygen Delivery Intake/Output Intake/Output: Intake & Output 12/08/24 12/09/24 12/10/24 12/11/24 23:59 23:59 23:59 23:59 Intake Total 6099.9 5480 3687.5 550 Output Total 3150 4300 3050 3125 Balance 2949.9 1180 637.5 -2575 Meds/Results Medications: Active Medications Generic Name Dose Route Start Last Admin Trade Name Freq PRN Reason Stop Dose Admin Acetaminophen 650 mg 12/05/24 16:29 12/07/24 20:52 Acetaminophen 325 Mg Tablet PO 650 mg Q4H PRN Administration Mild Pain (1-3) or Fever Albuterol/Ipratropium 3 ml 12/05/24 21:27 Ipratropium 0.5 Mg/Albuterol Sulfate 2.5 Mg Ampul.Neb 3 Ml INHALATION Q6HRT PRN Shortness Of Breath Or Wheezing Amlodipine Besylate 5 mg 12/11/24 09:00 Amlodipine Besylate 5 Mg Tablet PO DAILY [facility] Aspirin 81 mg 12/06/24 09:00 12/10/24 09:01 Aspirin 81 Mg Enteric Tablet PO 81 mg QAM NILSA Administration Calcium Carbonate 500 mg 12/10/24 08:05 12/10/24 08:59 Calcium/Vitamin D 500 Mg/5 Mcg (200 I.U.) Tablet PO 500 mg DAILY@0800 [facility] Administration Donepezil HCl 10 mg 12/06/24 18:00 12/10/24 17:47 Donepezil Hcl 10 Mg Tablet PO 10 mg QPM NILSA Administration Famotidine 20 mg 12/07/24 09:00 12/10/24 21:07 Famotidine 20 Mg Tablet PO 20 mg Q12HR NILSA Administration Finasteride 5 mg 12/08/24 09:00 12/10/24 09:03 Finasteride 5 Mg Tablet PO 5 mg QAM NILSA Administration Guaifenesin 600 mg 12/09/24 21:00 12/10/24 21:07 Guaifenesin 12 Hr 600 Mg Tabcr PO 600 mg Q12HR NILSA Administration Heparin Sodium (Porcine) 5,000 units 12/06/24 21:00 12/10/24 21:08 Heparin Sodium 5,000 Units/Ml Vial SUB-Q 5,000 units Q12HR NILSA Administration Losartan Potassium 25 mg 12/06/24 09:20 12/10/24 21:08 Losartan Potassium 25 Mg Tablet PO 25 mg Q12HR NILSA Administration Ondansetron HCl 4 mg 12/05/24 16:29 Ondansetron Inj 4 Mg/2 Ml Vial IV PUSH Q4H PRN Nausea Tamsulosin HCl 0.4 mg 12/06/24 09:00 12/10/24 09:02 Tamsulosin Hcl 0.4 Mg Capsule PO 0.4 mg QAM NILSA Administration Tamsulosin HCl 0.4 mg 12/07/24 21:00 12/10/24 21:07 Tamsulosin Hcl 0.4 Mg Capsule PO 0.4 mg HS NILSA Administration Trazodone HCl 50 mg 12/10/24 21:00 12/10/24 21:08 Trazodone Hcl 50 Mg Tablet PO 50 mg HS NILSA Administration Vitamin B Complex 1 cap 12/06/24 09:00 12/10/24 09:01 Vitamin B Complex Capsule PO 1 cap DAILY NILSA Administration Radiology Results: ITS Impressions Head CT 12/05/24 13:23 Impression: No intracranial hemorrhage, mass, or acute infarct. Atrophy and chronic white matter changes, as above. Chest X-Ray 12/05/24 13:44 IMPRESSION: 1. No acute cardiopulmonary disease. Abdomen/Pelvis CT 12/05/24 17:41 IMPRESSION: Dependent bilateral lower lobe pulmonary opacities may represent infection and/or aspiration. Moderate esophagitis/gastritis. Gallbladder hydrops, may be secondary to obstruction or fasting. Marked urinary bladder distention with mild wall thickening/inflammatory change and moderate bilateral hydronephrosis. No obstructing stone or mass detected. Correlate with urinalysis and for history of urinary retention. Renal Ultrasound 12/06/24 10:35 IMPRESSION: 1. Mild bilateral hydronephrosis with improvement status post Wong catheter placement. Abdomen Ultrasound 12/06/24 10:36 IMPRESSION: 1. Normal right upper quadrant ultrasound. Modified Barium Swallow 12/06/24 11:50 IMPRESSION: Mild pharyngeal dysphagia with single episode of laryngeal penetration without aspiration with thin liquids. Please correlate with speech pathologist findings and specific feeding recommendations. Labs Labs: Laboratory Results - last 24 hr 12/11/24 05:58 WBC 9.1 RBC 2.96 L Hgb 9.0 L Hct 28.3 L MCV 95.6 MCH 30.4 MCHC 31.8 L RDW 12.9 Plt Count 224 MPV 10.2 Immature Gran % (Auto) 1.2 H Neut % (Auto) 63.5 Lymph % (Auto) 22.3 Dane % (Auto) 8.8 H Eos % (Auto) 3.8 Baso % (Auto) 0.4 Lymph # (Auto) 2.03 Dane # (Auto) 0.8 H Eos # (Auto) 0.4 H Baso # (Auto) 0.0 Abs Immat Gran (auto) 0.11 H Absolute Neuts (auto) 5.8 Absolute Nucleated RBC 0.000 Nucleated RBC % 0.0 Sodium 139 Potassium 3.7 Chloride 105 Carbon Dioxide 27 Anion Gap 7 BUN 23 H Creatinine 1.39 H Estim Creat Clear Calc 37 Estimated GFR 49 L Glucose 93 Calcium 8.5 Magnesium 1.7 Total Bilirubin 0.5 AST 139 H ALT 111 H Alkaline Phosphatase 51 Total Creatine Kinase 951 H Total Protein 6.0 L Albumin 2.9 L Quality VTE Prophylaxis VTE prophylaxis: mechanical ordered and pharmacologic ordered
[2024-12-11] MEDS: LOSARTAN POTASSIUM 25 MG TABLET PO ×2 (08:52→21:17)
[2024-12-11] MEDS: FAMOTIDINE 20 MG TABLET PO ×2 (08:53→21:17)
[2024-12-11] MEDS: VITAMIN B COMPLEX CAPSULE 1 CAP PO (08:53)
[2024-12-11] MEDS: CALCIUM/VITAMIN D 500 MG/5 MCG (200 I.U.) TABLET PO (08:53)
[2024-12-11] MEDS: guaiFENesin 12 HR 600 MG TABCR PO (08:53)
[2024-12-11] MEDS: TAMSULOSIN HCL 0.4 MG CAPSULE PO ×2 (08:53→21:17)
[2024-12-11] MEDS: FINASTERIDE 5 MG TABLET PO (08:54)
[2024-12-11] MEDS: ASPIRIN 81 MG ENTERIC TABLET PO (08:54)
[2024-12-11] MEDS: HEPARIN SODIUM 5,000 UNITS/ML VIAL 5000 UNITS SUB-Q ×2 (08:54→21:17)
[2024-12-11] MEDS: hydrALAZINE 10 MG TABLET PO ×3 (12:47→21:17)
[2024-12-11] MEDS: AZITHROMYCIN 500 MG/NS 250 ML 500 MG/250 ML BAG 250 MG IVPB (12:52)
[2024-12-11 14:00] VITALS: BP 104/53; PULSE 79; RESP 18; TEMP 36.5; O2SAT 95
[2024-12-11] MEDS: DONEPEZIL HCL 10 MG TABLET PO (18:03)
[2024-12-11] MEDS: OLANZapine 5 MG TABLET PO (21:16)
[2024-12-11] MEDS: guaiFENesin 12 HR 600 MG TABCR 1200 MG PO (21:17)
[2024-12-11 22:00] VITALS: BP 123/43; PULSE 70; RESP 18; TEMP 36.6; O2SAT 100
[2024-12-12 06:00] VITALS: BP 126/46; PULSE 65; RESP 18; TEMP 36.4; O2SAT 100
--- NOTE | 2024-12-12 08:14 | PM.IMPN ---
Subjective Date/time seen: 12/12/24 08:14 Objective Data Vital Signs Vital Signs: Vital Signs - 24 hr 12/11/24 14:00 12/11/24 22:00 12/12/24 06:00 Temperature 97.7 F 97.8 F 97.6 F Pulse Rate 79 70 65 Respiratory Rate 18 18 18 Blood Pressure 104/53 L 123/43 L 126/46 L Pulse Oximetry 95 100 100 Intake/Output Intake/Output: Intake & Output 12/09/24 12/10/24 12/11/24 12/12/24 23:59 23:59 23:59 23:59 Intake Total 5480 3687.5 1310 300 Output Total 4300 3050 3125 Balance 1180 637.5 -1815 300 Meds/Results Medications: Active Medications Generic Name Dose Route Start Last Admin Trade Name Freq PRN Reason Stop Dose Admin Acetaminophen 650 mg 12/05/24 16:29 12/07/24 20:52 Acetaminophen 325 Mg Tablet PO 650 mg Q4H PRN Administration Mild Pain (1-3) or Fever Albuterol/Ipratropium 3 ml 12/05/24 21:27 Ipratropium 0.5 Mg/Albuterol Sulfate 2.5 Mg Ampul.Neb 3 Ml INHALATION Q6HRT PRN Shortness Of Breath Or Wheezing Amlodipine Besylate 5 mg 12/11/24 09:00 12/11/24 08:53 Amlodipine Besylate 5 Mg Tablet PO 5 mg DAILY NILSA Administration Aspirin 81 mg 12/06/24 09:00 12/11/24 08:54 Aspirin 81 Mg Enteric Tablet PO 81 mg QAM NILSA Administration Calcium Carbonate 500 mg 12/10/24 08:05 12/11/24 08:53 Calcium/Vitamin D 500 Mg/5 Mcg (200 I.U.) Tablet PO 500 mg DAILY@0800 NILSA Administration Donepezil HCl 10 mg 12/06/24 18:00 12/11/24 18:03 Donepezil Hcl 10 Mg Tablet PO 10 mg QPM NILSA Administration Famotidine 20 mg 12/07/24 09:00 12/11/24 21:17 Famotidine 20 Mg Tablet PO 20 mg Q12HR NILSA Administration Finasteride 5 mg 12/08/24 09:00 12/11/24 08:54 Finasteride 5 Mg Tablet PO 5 mg QAM NILSA Administration Guaifenesin 1,200 mg 12/11/24 21:00 12/11/24 21:17 Guaifenesin 12 Hr 600 Mg Tabcr PO 1,200 mg Q12HR NILSA Administration Heparin Sodium (Porcine) 5,000 units 12/06/24 21:00 12/11/24 21:17 Heparin Sodium 5,000 Units/Ml Vial SUB-Q 5,000 units Q12HR NILSA Administration Hydralazine HCl 10 mg 12/11/24 13:00 12/11/24 21:17 Hydralazine 10 Mg Tablet PO 10 mg QID NILSA Administration Ceftriaxone Sodium 1 gm in 50 mls @ 100 mls/hr 12/11/24 13:00 12/11/24 14:01 Rocephin 1 Gm/Ns 50 Ml IVPB 100 mls/hr Q24H NILSA Administration Azithromycin 500 mg in 250 mls @ 250 mls/hr 12/11/24 13:00 12/11/24 12:52 Zithromax IVPB 250 mls/hr Q24H NILSA Administration Losartan Potassium 25 mg 12/06/24 09:20 12/11/24 21:17 Losartan Potassium 25 Mg Tablet PO 25 mg Q12HR NILSA Administration Olanzapine 5 mg 12/11/24 21:00 12/11/24 21:16 Olanzapine 5 Mg Tablet PO 5 mg HS NILSA Administration Ondansetron HCl 4 mg 12/05/24 16:29 Ondansetron Inj 4 Mg/2 Ml Vial IV PUSH Q4H PRN Nausea Tamsulosin HCl 0.4 mg 12/07/24 21:00 12/11/24 21:17 Tamsulosin Hcl 0.4 Mg Capsule PO 0.4 mg HS NILSA Administration Vitamin B Complex 1 cap 12/06/24 09:00 12/11/24 08:53 Vitamin B Complex Capsule PO 1 cap DAILY NILSA Administration Radiology Results: ITS Impressions Head CT 12/05/24 13:23 Impression: No intracranial hemorrhage, mass, or acute infarct. Atrophy and chronic white matter changes, as above. Abdomen/Pelvis CT 12/05/24 17:41 IMPRESSION: Dependent bilateral lower lobe pulmonary opacities may represent infection and/or aspiration. Moderate esophagitis/gastritis. Gallbladder hydrops, may be secondary to obstruction or fasting. Marked urinary bladder distention with mild wall thickening/inflammatory change and moderate bilateral hydronephrosis. No obstructing stone or mass detected. Correlate with urinalysis and for history of urinary retention. Renal Ultrasound 12/06/24 10:35 IMPRESSION: 1. Mild bilateral hydronephrosis with improvement status post Castellanos catheter placement. Abdomen Ultrasound 12/06/24 10:36 IMPRESSION: 1. Normal right upper quadrant ultrasound. Modified Barium Swallow 12/06/24 11:50 IMPRESSION: Mild pharyngeal dysphagia with single episode of laryngeal penetration without aspiration with thin liquids. Please correlate with speech pathologist findings and specific feeding recommendations. Chest X-Ray 12/11/24 11:34 IMPRESSION: 1. Mild airspace opacities in the lower lung zones, consistent with atelectasis versus pneumonia.
[2024-12-12 08:43] LABS: Creatine Kinase 534 U/L (55-170)
[2024-12-12 08:44] LABS: Alanine Aminotransferase 109 U/L (6-50); Albumin Level 3.1 g/dL (3.5-5.1); Alkaline Phosphatase 57 U/L (38-126); Anion Gap 5 mmol/L (4-12); Aspartate Amino Transferase 112 U/L (17-59); Bilirubin,Total 0.5 mg/dL (0.2-1.3); Blood Urea Nitrogen 26 mg/dL (9-20); Calcium 8.6 mg/dL (8.4-10.2); Carbon Dioxide 29 mmol/L (22-30); Chloride 106 mmol/L (98-107); Estimated CRCL calculation 37 ml/min; Estimated Glomerular Filt Rate 49; Glucose 92 mg/dL (65-110); Magnesium 1.8 mg/dL (1.6-2.3); Potassium 3.8 mmol/L (3.4-5.0); Sodium 140 mmol/L (137-145)
--- NOTE | 2024-12-12 09:26 | PCPTNOTE ---
On 12/12/24, the student, MUNIR Carroll, provided care and completed [facility] documentation on this patient. I have reviewed the student's documentation and agree with the findings.
--- NOTE | 2024-12-12 10:09 | P.DS_ITS ---
DS: Admitting Diagnosis Discharge Date 12/12/24 Admitting Diagnosis Altered mental status and UTI DS: Discharge Diagnosis Discharge Diagnosis (1) Dementia: Code(s): F03.90 - Unspecified dementia, unspecified severity, without behavioral disturbance, psychotic disturbance, mood disturbance, and anxiety Status: Acute Assessment and Plan: * Donepezil 10 mg PO qpm. * Redirect as needed. * Bed alarm. * Zyprexa added (2) Unwitnessed fall: Code(s): R29.6 - Repeated falls Status: Acute Assessment and Plan: * Up with assistance only. * Bed alarm * Plan for inpatient rehab (3) Rhabdomyolysis: Code(s): M62.82 - Rhabdomyolysis Status: Acute Assessment and Plan: Resolved * DC fluids * CK in a.m. (4) Hypertension: Code(s): I10 - Essential (primary) hypertension Status: Acute Assessment and Plan: Improved Tomeka Lozano (5) Influenza: Code(s): J11.1 - Influenza due to unidentified influenza virus with other respiratory manifestations Status: Acute Assessment and Plan: Improved * Oseltamivir 30 mg PO q 12. * Guaifenesin (6) Urinary retention: Code(s): R33.9 - Retention of urine, unspecified Status: Acute Assessment and Plan: Improving * wong in place. * Tamsulosin 0.4 mg PO bid * UTI on Rocephin completed, leukocytosis resolved * Recommend maximal medical therapy for BPH (tamsulosin and finasteride). Voiding trial prior to discharge with plans to follow-up as previously arranged on 12/29/2024. * Resolved (7) Renal failure: Code(s): N19 - Unspecified kidney failure Status: Acute Assessment and Plan: Improving with hydration * Renal ultrasound showed: Mild bilateral hydronephrosis with improvement status post Wong catheter placement. * He follow-up with Nephrology on scheduled appointment LYNETTE resolved (8) Elevated LFTs: Code(s): R79.89 - Other specified abnormal findings of blood chemistry Status: Acute Assessment and Plan: Improving * AST and ALT are elevated, likely due to rhabdomyolysis. * Abdominal US showed: Normal right upper quadrant ultrasound. * Daily CMP (9) Pneumonia: Code(s): J18.9 - Pneumonia, unspecified organism Status: Acute Assessment and Plan: Improving Pneumonia versus atelectasis Azithromycin and Rocephin Daily CBC Transition to oral antibiotics Plan CT scan shows findings of possible esophagitis/gastritis and he has been started on famotidine. DS: Summary Hospital Course Reason for hospitalization: Mental status UTI Hospital Course: 79-year-old male with dementia, hypertension, hyperlipidemia, and coronary artery disease who presented to the emergency department via EMS from home for evaluation after a fall. He is not a good historian due to his dementia and the majority of the following history is obtained from his . He has not been feeling well for a couple of days and was seen in the emergency department yesterday evening with complaints of weakness and fever to 102.5? F. He tested positive for influenza A and was feeling better after receiving acetaminophen and 1 L of normal saline. He was able to be discharged home and his reports that she last saw him at about 03:00 and he was in bed sleeping. At about 11:00 she went into his room to check on him and found him lying on his back on the floor. He was soiled with stool and she reports that he had diarrhea all over the bathroom as well. Patient was also found to have an LYNETTE, urinary retention, and altered mental status. Patient was aggressively hydrated for rhabdomyolysis and LYNETTE. The patient had a Wong due to urinary retention and was started on BPH meds. Patient did receive Lasix while in hospital due to being fluid overloaded without respiratory symptoms. Patient had a voiding trial was able to urinate on his own. On day 4 of hospitalization patient was found to have pneumonia likely delayed presentation from the flu. He was started on oral antibiotics and able to transition over to p.o. While in hospital patient did have issues with sleep and with owning. Sleep tonight improved with trazodone patient was switched to Zyprexa which did help. Patient is stable for discharge in going to rehab. and daughter were plan. Status at Discharge Functional status at discharge: uses cane/walker Time Spent with Patient Time attestation: Total time spent providing and/or coordinating discharge services: Time spent: Greater than 30 minutes Exam Narrative: General: Mildly ill-appearing elderly gentleman supine in bed in no acute distress. Weight: 72.5 kg. BMI: 24.3. HEENT: Normocephalic, atraumatic. PERRL, EOMI. Sclera anicteric. Tacky mucous membranes. Neck: Supple. No JVD or lymphadenopathy. Respiratory: Respirations are nonlabored and lungs are clear to auscultation. Cardiovascular: Regular rate and rhythm with S1-S2. Gastrointestinal: Bladder is distended and he is tender to palpation and percussion in the right mid to lower quadrant. Negative Talamantse sign. Bowel sounds are present. No guarding or rebound tenderness. No CVA tenderness. Skin: Warm and dry. Skin tear on the right elbow and left hand. Extremities: No cyanosis, clubbing, or edema. Radial and pedal pulses intact. Neurological: Alert and oriented x2. He seems to have short-term memory loss and is not able to or provide an accurate history with regards to situation. Cranial nerves 2-12 are grossly intact. Speech is clear. No facial asymmetry. Generalized weakness without gross focal findings. Psychiatric: Pleasantly confused-improving and cooperative. DS: Data Data Completed and Pending Labs on day of discharge: Labs from last 24 hours 12/12/24 08:05 Sodium 140 Potassium 3.8 Chloride 106 Carbon Dioxide 29 Anion Gap 5 BUN 26 H Creatinine 1.39 H Estim Creat Clear Calc 37 Estimated GFR 49 L Glucose 92 Calcium 8.6 Magnesium 1.8 Total Bilirubin 0.5 AST 112 H ALT 109 H Alkaline Phosphatase 57 Total Creatine Kinase 534 H Total Protein 6.0 L Albumin 3.1 L Discharge Plan Discharge Consulting providers: Wiliam Mederos Discharging Clinician: Ashley Rossi Anticipated Discharge Date/Time: 12/12/24 10:11 Patient Disposition: SNF Activity: may shower Diet: regular Discharge Instructions: Discharge instructions: Take medications as prescribed New medications prescribed: Zyprexa for sleep Amlodipine for hypertension Flomax and Proscar for BPH For these medications you will need to follow-up with your PCP you have been given a 3 month supply Antibiotics for pneumonia You are activity as tolerated Monitor blood pressures Avoid social areas, you wear a mask when in social settings Encouraged to continue with yearly vaccinations Return to the emergency department if he developed sudden shortness of breath, chest pain, nausea, vomiting, upset stomach or intractable diarrhea Return to the emergency department if you develop fever greater than 101.5 Follow-up with: Your primary care physician within 1-2 weeks for post hospitalization check up Thank you for [facility] for your healthcare needs Patient Instructions: Urinary Tract Infection in Men (DC), Rhabdomyolysis (DC), Chronic Hypertension (DC), Community Acquired Pneumonia (DC), Fall Prevention (DC) Patient Language: Rwandan Stand Alone Forms: General Discharge Information Follow-up/Referrals: Nicole,MD Pernell [Primary Care Provider] - Discharge Medications: New olanzapine 5 mg Tablet 5 mg PO HS 90 Days Qty: 90 0RF amlodipine [Norvasc] 5 mg Tablet 5 mg PO DAILY 90 Days Qty: 90 0RF tamsulosin 0.4 mg Capsule 0.4 mg PO HS 90 Days Qty: 90 0RF finasteride [Proscar] 5 mg Tablet 5 mg PO QAM 90 Days Qty: 90 0RF amoxicillin-pot clavulanate 875-125 mg tablet 1 tablet PO Q12H Qty: 3 0RF Continued losartan 25 mg tablet 25 mg PO BID donepezil 10 mg tablet 10 mg PO QPM aspirin 81 mg capsule 81 mg PO DAILY vitamin B complex Tablet 1 tablet PO DAILY Discontinued oseltamivir [Tamiflu] 30 mg capsule 30 mg PO DAILY 5 Days Qty: 5 0RF Date of admission: 12/06/24 09:51 Primary Care Provider: NicolePernell Admitting Provider: Rafa Stout Attending physician on admission: Rafa Stout Condition: Stable Quality VTE Prophylaxis VTE prophylaxis: mechanical ordered and pharmacologic ordered Hospitalist MIPS Heart Failure (Exclusion) Patient has history of Heart Transplant or Left Ventricular Assistive Device?: No IF YES, STOP HERE Heart Failure (Qualifier) Patient has current or prior documentation of LVEF less than or equal to 40%, or mod/servere depressed LVSF?: No IF NO, STOP HERE
[2024-12-12] MEDS: FAMOTIDINE 20 MG TABLET PO (10:12)
[2024-12-12] MEDS: ASPIRIN 81 MG ENTERIC TABLET PO (10:13)
[2024-12-12] MEDS: LOSARTAN POTASSIUM 25 MG TABLET PO (10:13)
[2024-12-12] MEDS: HEPARIN SODIUM 5,000 UNITS/ML VIAL 5000 UNITS SUB-Q (10:13)
[2024-12-12] MEDS: amLODIPine BESYLATE 5 MG TABLET PO (10:13)
[2024-12-12] MEDS: VITAMIN B COMPLEX CAPSULE 1 CAP PO (10:13)
[2024-12-12] MEDS: CALCIUM/VITAMIN D 500 MG/5 MCG (200 I.U.) TABLET PO (10:13)
[2024-12-12] MEDS: FINASTERIDE 5 MG TABLET PO (10:13)
[2024-12-12] MEDS: guaiFENesin 12 HR 600 MG TABCR 1200 MG PO (10:13)
[2024-12-12] MEDS: AZITHROMYCIN 500 MG/NS 250 ML 500 MG/250 ML BAG 250 MG IVPB (12:31)
[2024-12-12 14:00] VITALS: BP 111/44; PULSE 81; RESP 18; TEMP 37.6; O2SAT 97
[2024-12-17 20:29] LABS: Legionella pneumophila Ag Ur NOT DETECTED
== END 2024-12-12 14:35 | DRG 153 ==
LOC: ANHED 17:25 → ANH3MEDSUR 18:25
PROVIDERS: Nurse Practitioner Family; Physician Assistant; Admitting Provider General Practice; Emergency Provider Emergency Medicine; PCP Internal Medicine; Visit Provider Nurse Practitioner Gerontology
DX: J11.1 Influenza due to unidentified influenza virus with other respiratory manifestations (principal); N17.9 Acute kidney failure, unspecified; M62.82 Rhabdomyolysis; N13.30 Unspecified hydronephrosis; J18.9 Pneumonia, unspecified organism; W19.XXXA Unspecified fall, initial encounter; E78.5 Hyperlipidemia, unspecified; F03.90 Unspecified dementia, unspecified severity, without behavioral disturbance, psychotic disturbance, mood disturbance, and anxiety; I10 Essential (primary) hypertension; I25.10 Atherosclerotic heart disease of native coronary artery without angina pectoris; R33.9 Retention of urine, unspecified; Z95.5 Presence of coronary angioplasty implant and graft; Z96.652 Presence of left artificial knee joint; Z20.822 Contact with and (suspected) exposure to COVID-19
CPT/HCPCS: 36415; 70450; 71045; 71046; 74177; 76705; 76775; 80053; 81001; 82550; 83735; 83874; 84100; 85025; 85027; 86738; 87040; 87070; 87086; 87205; 87449; 87641; 87899; 92507; 92526; 92611; 93005; 96361; 96374; 97110; 97116; 97161; 97165; 97530; 97535; 99285; A9270; G0378; J0456; J0612; J0613; J0696; J1644; J1940; J3475; J7030; Q9967